=== PATIENT | female | born 1935 | race Caucasian/White ===

== ENCOUNTER 2018-11-29 13:00 | Emergency (ER) | payer MEDICARE ==
[~2018-11-29] VITALS: Ht 160 cm; Wt 58.7 kg
[2018-11-29] MEDS ORDERED: NITROGLYCERIN 0.4 MG SUBL TABLET SL PRN (13:45)
[2018-11-29 13:51] LABS: BASO % 0.6 % (0.0-1.0); EOS # 0.1 10^3/uL (0.0-0.50); EOS % 1.4 % (0.0-3.0); HEMATOCRIT 37.4 % (36.0-47.0); HEMOGLOBIN 12.1 g/dl (12.0-15.5); LYMPH # 1.2 10^3/uL (1.5-4.5); LYMPH % 17.2 % (24.0-44.0); MEAN CORPUSCULAR HEMOGLOBIN 31.4 pg (27.0-33.0); MEAN CORPUSCULAR HGB CONC 32.4 g/dl (32.0-36.5); MEAN CORPUSCULAR VOLUME 97.1 fl (80.0-96.0); MONO # 0.7 10^3/uL (0.0-0.8); MONO % 9.7 % (0.0-5.0); NEUTROPHILS # 5.1 10^3/uL (1.8-7.7); NEUTROPHILS % 70.8 % (36.0-66.0); PLATELET COUNT, AUTOMATED 260 10^3/uL (150-450); RED BLOOD COUNT 3.85 10^6/uL (4.00-5.40); WHITE BLOOD COUNT 7.2 10^3/uL (4.0-10.0)
[2018-11-29] MEDS ORDERED: DORZ2SOL5 OD (13:53)
[2018-11-29] MEDS ORDERED: PILO1OPD OD (13:53)
[2018-11-29] MEDS ORDERED: ATEN100T PO (13:53)
[2018-11-29] MEDS ORDERED: COUM1TAB17 PO (13:53)
[2018-11-29] MEDS ORDERED: ALPH0.156 OD (13:53)
[2018-11-29] MEDS ORDERED: TRAV04OPD OU (13:53)
[2018-11-29 13:59] VITALS: BP 177/110
[2018-11-29 14:19] LABS: BLOOD UREA NITROGEN 15 MG/DL (7-18); CALCIUM LEVEL 8.7 MG/DL (8.8-10.2); CARBON DIOXIDE LEVEL 25 MEQ/L (21-32); CHLORIDE LEVEL 102 MEQ/L (98-107); CPK CREATINE PHOSPHOKINASE 124 U/L (26-192); CREATININE FOR GFR 1.04 MG/DL (0.55-1.30); GLOMERULAR FILTRATION RATE 53.7 (>32); GLUCOSE, FASTING 133 MG/DL (70-100); MB/CK RELATIVE INDEX 2.66 (< OR =4); POTASSIUM SERUM 4.1 MEQ/L (3.5-5.1); SODIUM LEVEL 133 MEQ/L (136-145); TROPONIN I < 0.02 NG/ML (< 0.10)
[2018-11-29] MEDS ORDERED: ISOVUE-370 76% 125ML VIAL (Q9967 PER ML) As Ordered ONE (14:27)
[2018-11-29] MEDS ORDERED: MORPHINE 2 MG/ML 1ML SYRINGE (J2270) IV ONE (16:30)
--- NOTE | 2018-11-29 17:34 | REP ---
CHEST, PORTABLE: AP portable view of the chest is performed and compared to prior study of 08/26/2016. Cardiomegaly is noted. There is calcification of the thoracic aorta. There is mildly prominent soft tissue density in the region of the aortic pulmonic window. I can not exclude adenopathy. Diffuse interstitial fibrosis is seen without a consolidating infiltrate. IMPRESSION: Cardiomegaly. Possible left suprahilar adenopathy. Diffuse interstitial fibrosis. Electronically Signed by Chucho Damon MD 12/04/2018 09:14 A
--- NOTE | 2018-11-29 17:39 | REP ---
CT ANGIOGRAM CHEST: TECHNIQUE: Axial contrast enhanced images from the thoracic inlet to the upper abdomen using 100 mL Isovue 370 intravenous contrast material with multiplanar reformations. There is no CT evidence of pulmonary embolism. There is atherosclerotic calcifications of the thoracic aorta with mild ectasia of the ascending thoracic aorta measuring 4 cm in maximum diameter. I see no axillary adenopathy. There is slight enlargement of a subcarinal lymph node 1.1 cm in short axis. There is cardiomegaly. There is mild left pericardial effusion. No pleural effusion is seen. There is mild parenchymal opacity in the left posterior costophrenic sulcus inferiorly compatible with mild atelectasis or infiltrate. There is diffuse interstitial fibrosis. There are a few scattered tiny calcified granulomas. There is a calcified right infrahilar lymph node. There are degenerative changes of the spine. There are significant compression deformities of the T6-T8 vertebral bodies which are new compared to the prior CT of 08/26/2016. There is a mild stable compression deformity of T3. IMPRESSION: No CT evidence of pulmonary embolism or significant adenopathy. Cardiomegaly. Left pericardial effusion which is relatively small. There is mild atelectasis or infiltrate in the left lower lobe inferiorly and posteriorly. Significant compression deformities of T6 through T8 are new compared to the prior study of 08/26/2016. Electronically Signed by Chucho Damon MD 12/04/2018 09:14 A
--- NOTE | 2018-11-29 17:41 | REP ---
CT ABDOMEN AND PELVIS WITH IV CONTRAST: TECHNIQUE: Axial contrast enhanced images from the lung bases to the pubic symphysis using 100 mL Isovue 370 intravenous contrast material with multiplanar reformations. Liver, spleen, adrenals, pancreas, and kidneys appear unremarkable. There is no hydronephrosis bilaterally. A few small gallstones are seen in the gallbladder and without definite inflammation or edema. There is no definite biliary dilatation. There is no abdominal aortic aneurysm with atherosclerotic calcifications noted. There is no adenopathy. There is no free air or free fluid. I see no bowel wall thickening. I see no pelvic mass. The patient appears to have had a hysterectomy. There are degenerative changes of the spine. IMPRESSION: No acute abnormalities. A few small gallstones in the gallbladder without associated edema or biliary dilatation identified. No free air or free fluid. Electronically Signed by Chucho Damon MD 12/04/2018 09:15 A
[2018-11-29] MEDS ORDERED: ULTR50TA8 PO ×2 (18:16→18:22)
[2018-11-29 18:30] VITALS: BP 167/113
--- NOTE | 2018-11-29 20:50 | ECGEPIP ---
Stationary ECG Study [facility] - ED Test Date: 2018-11-29 Pat Name: CHICO DE LEON Department: Room: - Gender: F Assistant Project Manager: ct : 1935 Requested By: Naren Bell Order Number: [id number] Reading MD: Naren Pfeiffer Measurements Intervals [place] Rate: 109 P: [place]: 0 QRS: 21 QRSD: 89 T: 31 QT: 319 QTc: 430 Interpretive Statements ATRIAL FLUTTER/TACHYCARDIA WITH RAPID VENTRICULAR RESPONSE NONSPECIFIC ST & T-WAVE ABNORMALITY RHYTHM CHANGE COMPARED TO 08/26/16 Electronically Signed On 11-29-2018 20:50:13 EDT by Naren Pfeiffer
--- NOTE | 2018-12-04 12:18 | ED PDOC ---
Post-Departure Follow-Up dr richey faxed formal report of cta chest for fu Alexis Geronimo MD Dec 04, 2018 12:18
--- NOTE | 2018-12-04 12:19 | ED PDOC ---
Post-Departure Follow-Up cxr report faxed to Alexis Pollard MD Dec 04, 2018 12:19
== END 2018-11-29 18:48 | disposition home or self-care (01) ==
LOC: M ED 13:00
DX: M48.54XA Collapsed vertebra, not elsewhere classified, thoracic region, initial encounter for fracture (principal); I10 Essential (primary) hypertension
CPT/HCPCS: 71045; 71275; 74177; 80048; 81001; 82550; 82553; 84484; 85025; 93005; 93041; 94760; 96374; 99285; J2270; Q9967

== ENCOUNTER 2019-02-23 20:03 | Inpatient (IN) | payer MEDICARE ==
[~2019-02-23] VITALS: Ht 162.6 cm; Wt 50.6 kg
[~2019-02-23 20:03] MED LIST: ALPH0.156 OD; ATEN100T PO; COUM1TAB17 PO; DORZ2SOL5 OS; PILO1OPD OD; TRAV04OPD OU; ULTR50TA8 PO
[2019-02-23] MEDS ORDERED: METOPROLOL 5 MG/5 ML VIAL IV STA ×2 (20:44→22:32)
[2019-02-23] MEDS ORDERED: METOCLOPRAMIDE INJ 10MG/2ML VIAL (J2765) IV ONE (20:45)
[2019-02-23] MEDS ORDERED: NS 500 ML IV ONE (20:45)
[2019-02-23 21:04] LABS: BASO # 0.1 10^3/uL (0.0-0.2); BASO % 0.9 % (0.0-1.0); EOS % 0.2 % (0.0-3.0); HEMATOCRIT 39.8 % (36.0-47.0); HEMOGLOBIN 12.8 g/dl (12.0-15.5); LYMPH # 0.6 10^3/uL (1.5-4.5); LYMPH % 9.5 % (24.0-44.0); MEAN CORPUSCULAR HEMOGLOBIN 30.8 pg (27.0-33.0); MEAN CORPUSCULAR HGB CONC 32.2 g/dl (32.0-36.5); MEAN CORPUSCULAR VOLUME 95.7 fl (80.0-96.0); MONO # 0.2 10^3/uL (0.0-0.8); MONO % 3.5 % (0.0-5.0); NEUTROPHILS # 5.6 10^3/uL (1.8-7.7); NEUTROPHILS % 85.6 % (36.0-66.0); PLATELET COUNT, AUTOMATED 222 10^3/uL (150-450); RED BLOOD COUNT 4.16 10^6/uL (4.00-5.40); WHITE BLOOD COUNT 6.6 10^3/uL (4.0-10.0)
[2019-02-23 21:29] LABS: ALBUMIN 3.7 GM/DL (3.2-5.2); ALT/SGPT 37 U/L (12-78); BILIRUBIN,DIRECT 0.2 MG/DL (0.0-0.2); BILIRUBIN,TOTAL 0.5 MG/DL (0.2-1.0); BLOOD UREA NITROGEN 22 MG/DL (7-18); CARBON DIOXIDE LEVEL 21 MEQ/L (21-32); CHLORIDE LEVEL 105 MEQ/L (98-107); CK-MB VALUE MASS 2.3 NG/ML (<3.6); CPK CREATINE PHOSPHOKINASE 93 U/L (26-192); CREATININE FOR GFR 1.04 MG/DL (0.55-1.30); GLOMERULAR FILTRATION RATE 53.7 (>32); GLUCOSE, FASTING 153 MG/DL (70-100); LIPASE 105 U/L (73-393); MB/CK RELATIVE INDEX 2.47 (< OR =4); POTASSIUM SERUM 4.4 MEQ/L (3.5-5.1); SODIUM LEVEL 137 MEQ/L (136-145); TOTAL PROTEIN 7.3 GM/DL (6.4-8.2); TROPONIN I < 0.02 NG/ML (< 0.10)
[2019-02-23] MEDS ORDERED: METOPROLOL TART 25 MG TABLET PO ONE (21:30)
[2019-02-23] MEDS ORDERED: ESOM40CA35 PO (22:33)
[2019-02-23] MEDS ORDERED: BRIM1OPD OS (22:33)
[2019-02-23] MEDS ORDERED: NITROGLYCERIN 2% OINT 1 GM *U/D* PKT TOP ONE (23:45)
[2019-02-23] MEDS ORDERED: FUROSEMIDE 100 MG/10 ML VIAL (J1940) IV ONE (23:45)
[2019-02-24] VITALS (7 sets, daily range): BP systolic 117–168; BP diastolic 76–103
[2019-02-24] MEDS ORDERED: ATENOLOL 50 MG TAB PO ONE (01:30)
[2019-02-24] MEDS: WARFARIN SOD 5 MG TAB PO SCH ×2 (02:41→16:17)
[2019-02-24] MEDS: LATANOPROST 0.005% OPHTH SOLN 2.5 ML OU SCH ×2 (02:42→21:21)
[2019-02-24] MEDS: BRIMONIDINE 0.1% OPHTH SOLN 5 ML OS SCH ×3 (02:42→21:21)
--- NOTE | 2019-02-24 02:48 | HPEPDOC ---
[facility] Medical History & Physical Date of Admission Feb 24, 2019 Date of Service: Feb 24, 2019 History and Physical CHIEF COMPLAINT: SOB HISTORY OF PRESENT ILLNESS: Patient is an 83-year-old female with past medical history of A. fib/flutter on warfarin and hypertension presented to the ER with complaints of nausea today. Also reports having chronic LE edema but has worsened in the past several days with some mild SOB. Patient is not aware of having HF in the past that she knows about and is not on any diuretic at home. She normally wear compression stockings for leg swelling. Otherwise denies any fever, chills, chest pain or any other complaints. PAST MEDICAL HISTORY: Refer to [facility] PAST SURGICAL HISTORY: SOCIAL HISTORY: Denies tobacco, alcohol or illicit drug use. FAMILY HISTORY: None noted ALLERGIES: Please see below. REVIEW OF SYSTEMS: 10 point review of system negative except as stated in HPI HOME MEDICATIONS: Please see below. PHYSICAL EXAMINATION: General: No acute distress, Alert Eyes: Normal sclera, EOMI, CHA HENT: Atraumatic, neck supple, moist mucous membranes Cardiovascular: Normal rate, normal rhythm. No murmurs appreciated. b/l LE swelling nonpitting. Pulmonary: mild bi basilar crackles GI: Soft, nontender, nondistended Skin: Warm and dry. Mild erythema of LLE above ankles. Neuro: CN grossly intact. No focal deficits. Strengths equal b/l. Psych: oriented x 3 LABORATORY DATA: See below. IMAGING: CXR-increased vascular congestion as read by me. f/u official report. MICROBIOLOGY: Please see below. ASSESSMENT AND PLAN: 1. Suspected CHF - LE edema with SOB and congestion on CXR. - Start on IV lasix. - f/u ECHO. - I/o, fluid restriction and daily weights. 2. HTN - Resume home medications. 3. Afib w/ RVR - Likely 2/2 stress from fluid overload. - Has been improving and slowly trending down. - Patient did not take her Atenolol this evening because she has been in ED. - To give a dose tonight and resume night dose tomorrow. - Consider IV BB if needed to further control HR. DVT ppx: HSQ and SCD Code status: DNR Vital Signs Vital Signs Date Time Temp Pulse Resp B/P (MAP) Pulse Ox O2 Delivery O2 Flow Rate FiO2 02/24/19 02:00 116 18 161/97 (118) 91 Room Air 02/24/19 01:10 97.5 Laboratory Data Labs 24H Laboratory Tests 2 02/23/19 20:38: Immature Granulocyte % (Auto) 0.3, White Blood Count 6.6, Red Blood Count 4.16, Hemoglobin 12.8, Hematocrit 39.8, Mean Corpuscular Volume 95.7, Mean Corpuscular Hemoglobin 30.8, Mean Corpuscular Hemoglobin Concent 32.2, Red Cell Distribution Width 14.1, Platelet Count 222, Neutrophils (%) (Auto) 85.6H, Lymphocytes (%) (Auto) 9.5L, Monocytes (%) (Auto) 3.5, Eosinophils (%) (Auto) 0.2, Basophils (%) (Auto) 0.9, Neutrophils # (Auto) 5.6, Lymphocytes # (Auto) 0.6L, Monocytes # (Auto) 0.2, Eosinophils # (Auto) 0.0, Basophils # (Auto) 0.1, Nucleated Red Blood Cells % (auto) 0.0, Anion Gap 11, Glomerular Filtration Rate 53.7, Calcium Level 9.0, Aspartate Amino Transf (AST/SGOT) 38H, Alanine Aminotransferase (ALT/SGPT) 37, Alkaline Phosphatase 83, Total Bilirubin 0.5, Direct Bilirubin 0.2, Total Creatine Kinase 93, Creatine Kinase MB 2.3, Creatine Kinase MB Relative Index 2.47, Troponin I < 0.02, Total Protein 7.3, Albumin 3.7, Albumin/Globulin Ratio 1.03, Lipase 105 CBC/BMP Laboratory Tests 02/23/19 20:38 Red Blood Count 4.16, Mean Corpuscular Volume 95.7, Mean Corpuscular Hemoglobin 30.8, Mean Corpuscular Hemoglobin Concent 32.2, Red Cell Distribution Width 14.1, Neutrophils (%) (Auto) 85.6 H, Lymphocytes (%) (Auto) 9.5 L, Monocytes (%) (Auto) 3.5, Eosinophils (%) (Auto) 0.2, Basophils (%) (Auto) 0.9, Neutrophils # (Auto) 5.6, Lymphocytes # (Auto) 0.6 L, Monocytes # (Auto) 0.2, Eosinophils # (Auto) 0.0, Basophils # (Auto) 0.1 Home Medications Scheduled Atenolol (Atenolol) 100 Mg Tab, 100 MG PO QHS Brimonidine Tartrate (Alphagan P) 0.1% 5ML Drops, 1 DROP OS BID Dorzolamide HCl/Timolol Maleat (Dorzolamide-Timolol Eye Drops) 1 Anita Anita, 1 DROP OS BID Travoprost (Travatan Z) 50 Drop/2.5 Ml Soln, 1 DROP OU QHS Warfarin Sodium (Coumadin) 5 Mg Tab, 5 MG PO QPM AT 1700 Allergies Coded Allergies: No Known Allergies (Unverified , 10/06/09) A-FIB/CHADSVASC A-FIB History Current/History of A-Fib/PAF?: Yes Current PO Anticoag Therapy: Yes ALEXANDRIA HOLLIDAY MD Feb 24, 2019 02:48
[2019-02-24] MEDS ORDERED: METOPROLOL 5 MG/5 ML VIAL IV STA (03:45)
[2019-02-24 05:09] LABS: HEMATOCRIT 39.5 % (36.0-47.0); HEMOGLOBIN 12.8 g/dl (12.0-15.5); MEAN CORPUSCULAR HEMOGLOBIN 30.3 pg (27.0-33.0); MEAN CORPUSCULAR HGB CONC 32.4 g/dl (32.0-36.5); MEAN CORPUSCULAR VOLUME 93.4 fl (80.0-96.0); PLATELET COUNT, AUTOMATED 225 10^3/uL (150-450); RED BLOOD COUNT 4.23 10^6/uL (4.00-5.40); WHITE BLOOD COUNT 6.9 10^3/uL (4.0-10.0)
[2019-02-24 05:27] LABS: INR 1.81; PROTHROMBIN TIME 21.3 SECONDS (12.1-14.4)
[2019-02-24 05:40] LABS: CALCIUM LEVEL 8.7 MG/DL (8.8-10.2); CREATININE FOR GFR 1.08 MG/DL (0.55-1.30); GLOMERULAR FILTRATION RATE 51.5 (>32); POTASSIUM SERUM 3.5 MEQ/L (3.5-5.1)
[2019-02-24] MEDS: HEPARIN SOD (PORCINE) 5000 UNITS/ML VIAL SC SCH ×3 (06:23→22:32)
--- NOTE | 2019-02-24 07:06 | ECGEPIP ---
[facility] - ED Test Date: 2019-02-23 Pat Name: CHICO DE LEON Department: Room: [place] [address] Gender: Female Supervisor Frame Assembly: elsa : 1935 Requested By: HERMINIO BALL Order Number: [id number] Reading MD: Naren Pfeiffer Measurements Intervals [place] Rate: 122 P: [place]: -1 QRS: 34 QRSD: 93 T: QT: 315 QTc: 450 Interpretive Statements ATRIAL FLUTTER WITH RAPID VENTRICULAR RESPONSE NONSPECIFIC ST & T-WAVE ABNORMALITY SIMILAR TO 11/19/18 Electronically Signed on 02-24-2019 7:06:44 EDT by Naren Pfeiffer
[2019-02-24] MEDS ORDERED: SLF 3 ML SYR IV PRN (07:45)
[2019-02-24] MEDS: FUROSEMIDE 40 MG/4 ML VIAL (J1940) IV SCH ×3 (08:39→23:45)
--- NOTE | 2019-02-24 08:50 | REP ---
PORTABLE CHEST: AP portable view of the chest is performed and compared to prior study of 11/29/2018. Cardiomegaly is again noted. There is vascular congestion with diffuse interstitial edema. There also appears to be mild bibasilar alveolar edema. There are small effusions. There is calcification of the thoracic aorta. Mediastinal silhouette is unremarkable. IMPRESSION: Cardiomegaly with vascular congestion and diffuse interstitial edema. Mild bibasilar alveolar edema and small effusions. Electronically Signed by Chucho Damon MD 02/25/2019 10:35 A
[2019-02-24] MEDS ORDERED: METOPROLOL TART 25 MG TABLET PO SCH (14:15)
--- NOTE | 2019-02-24 14:16 | IPNPDOC ---
Text Note Date of Service The patient was seen on 02/24/19. NOTE S: patient seen with clark. HR consistently 110 but no palpitations, no CP, states SOB improved from admission. good urine output. She is being seen for CHF/Afib. States she has had afib for 10-15 years O: Vitals as below General: pleasant, NAD AAOx3 Heart - irreg/irreg 110-115 LCTA no W/R/R Ext: 2+ pitting edema A/P: Afib - chronic poor control; change atenolol 100mg q HS to metoprolol tartrate 50bid (with conversion rate of atenolol to metoprolol [1:2] anticipate she may need higher dose). cardiac echo this AM pending. troponin negative. Check TSH. daily INR and monitor warfarin. High decision making to monitor warfarin due to potential drug toxicity acute CHF - unknown type; await echo. continue with diuresis, metoprolol, consider NATHAN-I if EF less than 40%, consider spironolactone Patient is requesting to see Dr Ledezma while in hospital - consult placed. VS,Fishbone, I+O VS, Fishbone, I+O Laboratory Tests 02/23/19 20:38 Red Blood Count 4.16, Mean Corpuscular Volume 95.7, Mean Corpuscular Hemoglobin 30.8, Mean Corpuscular Hemoglobin Concent 32.2, Red Cell Distribution Width 14.1, Neutrophils (%) (Auto) 85.6 H, Lymphocytes (%) (Auto) 9.5 L, Monocytes (%) (Auto) 3.5, Eosinophils (%) (Auto) 0.2, Basophils (%) (Auto) 0.9, Neutrophils # (Auto) 5.6, Lymphocytes # (Auto) 0.6 L, Monocytes # (Auto) 0.2, Eosinophils # (Auto) 0.0, Basophils # (Auto) 0.1 02/24/19 04:43 Red Blood Count 4.23, Mean Corpuscular Volume 93.4, Mean Corpuscular Hemoglobin 30.3, Mean Corpuscular Hemoglobin Concent 32.4, Red Cell Distribution Width 14.1, Calcium Level 8.7 L Vital Signs Date Time Temp Pulse Resp B/P (MAP) Pulse Ox O2 Delivery O2 Flow Rate FiO2 02/24/19 12:00 97.8 110 20 117/96 (103) 97 02/24/19 02:00 Room Air I&O- Last 24 Hours up to 6 AM 02/24/19 06:00 Intake Total 740 ml Output Total 2925 ml Balance -2185 ml SIMRAN MARTI DO Feb 24, 2019 14:16
[2019-02-24] MEDS: SLF 3 ML SYR IV SCH ×2 (14:24→21:22)
[2019-02-24] MEDS: METOPROLOL TART 50 MG TAB PO SCH ×2 (14:24→14:25)
[2019-02-24] MEDS ORDERED: DIGOXIN INJ 0.5 MG/2 ML AMP (J1160) IV ONE (17:00)
[2019-02-24 17:31] LABS: FREE T4 1.24 NG/DL (0.76-1.46); THYROID STIMULATING HORMONE 3.45 uIU/ML (0.358-3.740); THYROXINE (T4) 9.4 UG/DL (4.5-12.0)
--- NOTE | 2019-02-24 17:32 | CR ---
DATE OF CONSULTATION: 02/24/2019 REASON FOR CONSULTATION: Diastolic heart failure, acute on chronic, chronic atrial fibrillation. HISTORY OF THE PRESENT ILLNESS: Morenita Barboza is a pleasant 83-year-old woman with chronic atypical atrial flutter and systemic hypertension. Yesterday she developed nausea and vomiting and was feeling generally unwell and decided to proceed to the emergency room for further evaluation. She reports paroxysmal nocturnal dyspnea. She reports chronic bilateral leg edema in both legs, which has not changed. She is no longer bothered by palpitations, but in the past, she has had palpitations. No chest pain or chest discomfort with or without exertion. No presyncope or syncope. No embolic events. No intermittent claudication. She does not have any exertional dyspnea with less than ordinary activities of daily living. She is quite sedentary. She was discovered to have heart failure and to have atypical atrial flutter with rapid ventricular response. She has been admitted to the hospital for further management. She claims 100% compliance with her medications. An echocardiogram Doppler has been performed earlier today and will be reported under separate cover. It showed normal left ventricular (LV) systolic function, normal right ventricle systolic function, moderate left atrial dilatation, moderate right atrial dilatation, and a moderate size pericardial effusion without diastolic chamber collapse. Mitral annular calcification and aortic valve sclerosis with mild aortic regurgitation were present. ADVERSE DRUG REACTIONS: No known adverse drug reactions. MEDICATIONS PRIOR TO ADMISSION: Atenolol 100 mg nightly, Alphagan P one drop left eye (OS) twice a day, dorzolamide/timolol ophthalmic solution one drop left eye twice a day, Travatan Z one drop both eyes (OU) nightly, Coumadin 5 mg every evening. PATIENT'S CURRENT MEDICATIONS IN HOSPITAL ARE FOLLOWS: Alphagan P one drop twice a day left eye, furosemide 40 mg IV every 8 hours, latanoprost ophthalmic solution one drop both eyes nightly, metoprolol tartrate 60 mg by mouth twice a day, warfarin 5 mg daily. OTHER PAST MEDICAL AND SURGICAL HISTORY: Chronic atypical atrial flutter, systemic hypertension, chronic bilateral leg edema, hypercholesterolemia, gastroesophageal reflux disease (GERD), status post hysterectomy, prior broken back, prior hysterectomy, anemia. FAMILY HISTORY: Mother had systemic hypertension and diabetes. One sister with diabetes. SOCIAL HISTORY: Resident of [place], [place]. . No alcohol. Nonsmoker. REVIEW OF SYSTEMS: Ten-point review of systems were negative other than features described in history of the present illness above. No anxiety, panic attacks, or depression. PHYSICAL EXAMINATION: Pleasant elderly woman who appears to be normal body weight. Height 64 inches, weight 53.2 kg, body mass index (BMI) 20.1. Temperature 97.8, pulse 115 (irregularly irregular), respiratory rate 20, blood pressure 130/68, oxygen (O2) saturation 97% on room air. No conjunctival pallor, scleral icterus or xanthomas. Some missing teeth and some dental fillings. Teeth were stained. Oral mucosa was moist and without pallor or cyanosis. Jugular venous pulsations were at 12 cm. Trachea midline. No palpable thyroid. No clubbing, nail bed cyanosis, or splinter hemorrhages. No skin lesions, skin pallor, or icterus. Oriented to person, place and time. Mood and affect normal. Kyphosis present. Gait was not tested (patient on bed rest). Gross motor strength and tone normal. No abnormal muscle atrophy, fasciculations, or tremors. Respiratory expansion and effort were good. No crackles or wheezes. No palpable apex beat. No left parasternal lifts, heaves, thrills, or palpable heart sounds. First and second heart sounds are variable intensity. The second heart sound was loud. No S3. No pericardial friction rub. No murmurs appreciated. Carotids were normal in volume and contour and without bruits. No palpable abdominal aorta. No abdominal bruits. Femoral pulses normal. Pedal pulses normal. 1 mm bilateral pitting edema in both legs. Abdomen was obese, soft, nontender with normal bowel sounds. No hepatosplenomegaly or other organomegaly. Liver span 10 cm in the right midclavicular line. Stool for occult blood not presently indicated. INVESTIGATIONS: Laboratory work 02/23/2019 was reviewed: WBC 6.6, hemoglobin 12.8, hematocrit 39.8, platelets 222. Sodium 137, potassium 4.4, chloride 105, CO2 21, BUN 22, creatinine 1.04, estimated GFR 53.7, glucose 153, troponin I less than 0.02, CPK 93, CPK-MB 2.3, total protein 7.3, albumin 3.7. Laboratory work 02/24/2019 was reviewed: Sodium 139, potassium 3.5, chloride 102, CO2 26, BUN 21, creatinine 1.08, estimated GFR 51.5, glucose 121, NT-Pro-BNP 4370. PT/INR 1.81. Electrocardiogram 02/23/2019 shows atrial flutter (most likely atypical atrial flutter), rapid ventricular response, heart rate 122 beats per minute, nonspecific ST-T abnormalities. I have independently visualized the patient's portable upright AP chest x-ray acquired 02/23/2019 at 11:19 p.m. Presence of cardiomegaly despite the portable technique. Enlargement of the main pulmonary artery. Calcification of the aortic arch. Left atrial enlargement, pulmonary vascular redistribution. Small bilateral pleural effusions. Interstitial pulmonary edema. Some patchy alveolar edema as well. ASSESSMENT AND RECOMMENDATIONS: 1. Atypical atrial flutter with rapid ventricular response. To improve heart rate control, I will add digoxin. Currently she is underdosed on metoprolol tartrate, and I see no good reason to be switching her from atenolol to metoprolol tartrate. I will switch her back to atenolol but at a higher dose than her home dose. Continue warfarin. Echocardiogram Doppler report under separate cover. 2. Systemic hypertension. Blood pressure control has been variable. Will continue to follow. As noted above, she will be switched back to atenolol and taken off metoprolol tartrate. Continue intravenous (IV) furosemide. 3. Moderate size pericardial effusion. No diastolic chamber collapse. I do not think that she needs to have drainage of the pericardial effusion. I suspect the pericardial effusion will progressively lessen with treatment of heart failure. 4. Diastolic heart failure (acute on chronic). Echocardiogram Doppler report under separate cover. Agree with IV furosemide. I believe her heart failure will improve with better heart rate control. 5. Abnormal ECG. ECG as described above.
--- NOTE | 2019-02-24 17:42 | ECHO ---
DATE OF PROCEDURE: 02/24/2019 REFERRING PHYSICIAN: Dr. Bipin Espinoza INDICATION: Heart failure, unspecified. HEIGHT: 163 cm WEIGHT: 68 kg 2D MEASUREMENTS: Ventricular septum: 0.67 cm Posterior wall: 0.98 cm Left ventricle diastole: 4.8 cm Left atrium: 3.5 cm Left atrial volume index: 39 Proximal ascending aorta: 3.4 cm Inferior vena cava: 1.8 cm (approximately 50% respiratory variation). CVP estimated to be 10 mmHg. DOPPLER MEASUREMENTS: Mild aortic regurgitation. No aortic stenosis. Aortic valve velocity: 139 cm/s LVOT velocity: 64.7 cm/s Mild-moderate mitral regurgitation. Moderate tricuspid regurgitation. Mild pulmonic regurgitation. DESCRIPTION: Rhythm appeared to be atypical atrial flutter with rapid ventricular response. Image quality was fair. This was a 2D, M-mode, color flow Doppler and pulse wave Doppler examination and included mitral annular tissue Doppler. CONCLUSIONS: 1. Normal left ventricle internal dimensions and wall thickness. Normal regional left ventricular (LV) wall motion and wall thickening. Normal LV systolic function with left ventricular ejection fraction (LVEF) 60% by visual estimate. Unable to determine LV diastolic function in the setting of atrial flutter. 2. Moderate left atrial dilatation by left atrial volume index. 3. Moderate size pericardial effusion, which measured 0.8 cm over the posterior wall of the left ventricle. No diastolic chamber collapse. No significant respiratory variation or intracardiac velocities. 4. Moderate aortic valve sclerosis of a 3-cusp aortic valve. Mild aortic regurgitation. No aortic stenosis. 5. Mild mitral annular calcification. Mild-moderate mitral regurgitation. 6. Normal right ventricle size and systolic function. 7. Moderate right atrial dilatation.
[2019-02-24] MEDS ORDERED: ATENOLOL 50 MG TAB PO SCH (21:00)
[2019-02-24] MEDS: ATENOLOL 25 MG TAB PO SCH (21:21)
[2019-02-24] MEDS ORDERED: DIGOXIN 0.25 MG TAB PO ONE (21:45)
[2019-02-25] VITALS (8 sets, daily range): BP systolic 94–138; BP diastolic 66–84
[2019-02-25 06:01] LABS: INR 1.87; PROTHROMBIN TIME 21.9 SECONDS (12.1-14.4)
[2019-02-25 06:14] LABS: CHOLESTEROL RISK RATIO 2.518 (<5); CREATININE FOR GFR 1.15 MG/DL (0.55-1.30); GLOMERULAR FILTRATION RATE 47.9 (>32); THYROID STIMULATING HORMONE 4.11 uIU/ML (0.358-3.740)
[2019-02-25] MEDS: SLF 3 ML SYR IV SCH ×3 (06:34→21:37)
[2019-02-25] MEDS: HEPARIN SOD (PORCINE) 5000 UNITS/ML VIAL SC SCH ×3 (06:35→20:46)
[2019-02-25] MEDS: FUROSEMIDE 40 MG/4 ML VIAL (J1940) IV SCH ×3 (08:13→17:34)
[2019-02-25] MEDS: BRIMONIDINE 0.1% OPHTH SOLN 5 ML OS SCH ×2 (08:15→20:48)
[2019-02-25] MEDS: DIGOXIN 0.125 MG TAB PO SCH (08:15)
[2019-02-25] MEDS: ATENOLOL 25 MG TAB PO SCH ×2 (08:15→20:46)
[2019-02-25] MEDS ORDERED: [UNRECOGNIZED DRUG - OTHER] OU SCH (09:00)
[2019-02-25 10:56] LABS: HEMATOCRIT 43.6 % (36.0-47.0); HEMOGLOBIN 14.2 g/dl (12.0-15.5); MEAN CORPUSCULAR HEMOGLOBIN 30.3 pg (27.0-33.0); MEAN CORPUSCULAR HGB CONC 32.6 g/dl (32.0-36.5); MEAN CORPUSCULAR VOLUME 93.2 fl (80.0-96.0); PLATELET COUNT, AUTOMATED 261 10^3/uL (150-450); RED BLOOD COUNT 4.68 10^6/uL (4.00-5.40); WHITE BLOOD COUNT 7.2 10^3/uL (4.0-10.0)
[2019-02-25 11:36] LABS: ALBUMIN 3.5 GM/DL (3.2-5.2); BILIRUBIN,TOTAL 0.7 MG/DL (0.2-1.0); CALCIUM LEVEL 8.7 MG/DL (8.8-10.2); CREATININE FOR GFR 1.57 MG/DL (0.55-1.30); GLOMERULAR FILTRATION RATE 33.4 (>32); MAGNESIUM LEVEL 1.9 MG/DL (1.8-2.4); POTASSIUM SERUM 3.3 MEQ/L (3.5-5.1); TOTAL PROTEIN 7.6 GM/DL (6.4-8.2)
--- NOTE | 2019-02-25 12:43 | IPNPDOC ---
Subjective Date Seen The patient was seen on 02/25/19. Subjective Chief Complaint/HPI Patient is comfortable in no apparent distress but feels much better General: Denies: ROS Unobtainable, Chills, Night Sweats, Fatigue, Malaise, Normal Appetite, Other Symptoms Constitutional: Denies: Chills, Fever, Malaise, Night Sweats, Weakness, Fatigue, Weight Loss, Lethargy, Other Eyes: Denies: Pain, Vision change, Conjunctivae inflammation, Eyelid inflammation, Redness, Other ENT: Denies: Head Aches, Ear Pain, Dysphagia, Sinus Congestion, Post Nasal Drip, Sore Throat, Epistaxis, Other Symptoms Skin: Denies: Rash, Lesions, Jaundice, Bruising, Itching, Dry, Breakdown, Nail Changes, Other Pulmonary: Denies: Dyspnea, Cough, Pleuritic Chest Pain, Other Symptoms Cardiovascular: Denies: Chest Pain, Palpitations, Orthopnea, Paroxysmal Noc. Dyspnea, Edema, Lt Headedness, Other Symptoms Gastrointestinal: Denies: Nausea, Vomiting, Abdominal Pain, Diarrhea, Consti pation, Melena, Hematochezia, Other Symptoms Genitourinary: Denies: Dysuria, Frequency, Incontinence, Hematuria, Retention, Other Symptoms Hematologic: Denies: Bruising, Bleeding Excessively, Petecchia, Purpura, Enlarged Lymph Nodes, Other Hematologic Endocrine: Denies: Polydipsia, Polyphagia, Polyuria, Heat Intolerance, Cold Intolerance, Other Endocrine Sx Musculoskeletal: Denies: Neck Pain, Back Pain, Shoulder Pain, Arm Pain, Hand Pain, Leg Pain, Foot Pain, Joint Pain, Muscle Pain, Spasms, Other Symptoms Neurological: Denies: Weakness, Numbness, Incoordination, Change in speech, Co nfusion, Seizures, Other Symptoms Psych: Denies: Mood Normal, Anxiety, Depression, Memory Issues, Thoughts of Self Harm, Anger, Thoughts of Harming Other, Other Psych Objective Physical Examination General Exam: Positive: Alert, No Acute Distress Eye Exam: Positive: PERRLA, Conjunctiva & lids normal ENT Exam: Positive: Atraumatic, Mucous membr. moist/pink, Pharynx Normal Neck Exam: Positive: Supple Chest Exam: Positive: Clear to auscultation, Normal air movement Heart Exam: Positive: Rate Normal, Normal S1, Normal S2 Abdomen Exam: Positive: Normal bowel sounds, Soft Extremity Exam: Positive: Normal pulses Skin Exam: Positive: Nl turgor and temperature Neuro Exam: Positive: Normal Gait, Cranial Nerves 3-12 NL Psych Exam: Positive: Mental status NL, Mood NL Assessment /Plan Problems (1) Atrial flutter with rapid ventricular response Status: Acute (2) Congestive heart failure Status: Acute (3) Compression fracture of thoracic spine, non-traumatic Status: Acute Plan/VTE VTE Prophylaxis Ordered?: Yes Plan #1. Atrial flutter with RVR: Digoxin was added by cardiology and also beta blockers changed to atenolol from metoprolol tartrate Continue anticoagulation with Coumadin. Follow INR routinely Echo report: 1. Normal left ventricle internal dimensions and wall thickness. Normal regional left ventricular (LV) wall motion and wall thickening. Normal LV systolic function with left ventricular ejection fraction (LVEF) 60% by visual estimate. Unable to determine LV diastolic function in the setting of atrial flutter. 2. Moderate left atrial dilatation by left atrial volume index. 3. Moderate size pericardial effusion, which measured 0.8 cm over the posterior wall of the left ventricle. No diastolic chamber collapse. No significant respiratory variation or intracardiac velocities. 4. Moderate aortic valve sclerosis of a 3-cusp aortic valve. Mild aortic regurgitation. No aortic stenosis. 5. Mild mitral annular calcification. Mild-moderate mitral regurgitation. 6. Normal right ventricle size and systolic function. 7. Moderate right atrial dilatation. #2. Hypertension Patient has been switched back to atenolol as to the metoprolol. He is also receiving IV Lasix and IV potassium Continue monitoring patient's vital signs #3. Acute on chronic diastolic heart failure Continue IV Lasix and IV potassium as per orders Monitor I&O's Further, as per cardiology #4 Moderate size pericardial effusion. No diastolic chamber collapse. Continue IV diuresis drainage of pericardial effusion was not considered by cardiology VS, I&O, 24H, [facility] Vital Signs/I&O Vital Signs Date Time Temp Pulse Resp B/P (MAP) Pulse Ox O2 Delivery O2 Flow Rate FiO2 02/25/19 12:00 97.5 69 18 105/69 (81) 98 02/24/19 02:00 Room Air I&O- Last 24 Hours up to 6 AM 02/25/19 06:00 Intake Total 1140 ml Output Total 450 ml Balance 690 ml Laboratory Data 24H LABS Laboratory Tests 2 02/25/19 05:31: Prothrombin Time 21.9H, Prothromb Time International Ratio 1.87, Anion Gap 8, Glomerular Filtration Rate 47.9, Calcium Level 9.0, Triglycerides Level 67, LDL Cholesterol 110H, Total Cholesterol 204H, Non-HDL Cholesterol (LDL + VLDL) 123, Total HDL Cholesterol 81, Cholesterol/HDL Ratio 2.518, Thyroid Stimulating Hormone (TSH) 4.110H 02/25/19 10:33: Anion Gap 12, Glomerular Filtration Rate 33.4, Calcium Level 8.7L, Nucleated Red Blood Cells % (auto) 0.0, Blood Urea Nitrogen 32H, Creatinine 1.57H, Sodium Level 137, Potassium Level 3.3L, Chloride Level 97L, Carbon Dioxide Level 28, Aspartate Amino Transf (AST/SGOT) 45H, Alanine Aminotransferase (ALT/SGPT) 41, Alkaline Phosphatase 88, Total Bilirubin 0.7, Total Protein 7.6, Albumin 3.5, Magnesium Level 1.9, Albumin/Globulin Ratio 0.85L, Digoxin Level 2.0 CBC/BMP Laboratory Tests 02/25/19 05:31 02/25/19 10:33 Red Blood Count 4.68, Mean Corpuscular Volume 93.2, Mean Corpuscular Hemoglobin 30.3, Mean Corpuscular Hemoglobin Concent 32.6, Red Cell Distribution Width 14.3, Calcium Level 8.7 L, Aspartate Amino Transf (AST/SGOT) 45 H, Alanine Aminotransferase (ALT/SGPT) 41, Alkaline Phosphatase 88, Total Bilirubin 0.7, Total Protein 7.6, Albumin 3.5 MESERET GOMEZ MD Feb 25, 2019 12:43
[2019-02-25] MEDS: WARFARIN SOD 5 MG TAB PO SCH (17:12)
[2019-02-25] MEDS ORDERED: ONDANSETRON 4MG/2ML VIAL (J2405) IV PRN (18:30)
[2019-02-25] MEDS ORDERED: POTASSIUM CHLORIDE 10 MEQ SR TABLET PO ONE (18:30)
[2019-02-25] MEDS: [UNRECOGNIZED DRUG - OTHER] OS SCH (20:47)
[2019-02-25] MEDS: LATANOPROST 0.005% OPHTH SOLN 2.5 ML OU SCH (20:48)
[2019-02-26 04:00] VITALS: BP 132/76
[2019-02-26] MEDS: SLF 3 ML SYR IV SCH (05:21)
[2019-02-26] MEDS: HEPARIN SOD (PORCINE) 5000 UNITS/ML VIAL SC SCH (05:22)
[2019-02-26 05:35] LABS: BASO # 0.1 10^3/uL (0.0-0.2); BASO % 0.9 % (0.0-1.0); EOS # 0.2 10^3/uL (0.0-0.50); EOS % 3.5 % (0.0-3.0); HEMATOCRIT 40.9 % (36.0-47.0); HEMOGLOBIN 13.3 g/dl (12.0-15.5); LYMPH # 1.5 10^3/uL (1.5-4.5); LYMPH % 23.2 % (24.0-44.0); MEAN CORPUSCULAR HEMOGLOBIN 30.6 pg (27.0-33.0); MEAN CORPUSCULAR HGB CONC 32.5 g/dl (32.0-36.5); MONO % 15.2 % (0.0-5.0); NEUTROPHILS # 3.6 10^3/uL (1.8-7.7); NEUTROPHILS % 56.7 % (36.0-66.0); PLATELET COUNT, AUTOMATED 218 10^3/uL (150-450); RED BLOOD COUNT 4.35 10^6/uL (4.00-5.40); WHITE BLOOD COUNT 6.4 10^3/uL (4.0-10.0)
[2019-02-26 05:40] LABS: INR 2.49; PROTHROMBIN TIME 27.4 SECONDS (12.1-14.4)
[2019-02-26 05:56] LABS: CALCIUM LEVEL 8.8 MG/DL (8.8-10.2); CREATININE FOR GFR 1.61 MG/DL (0.55-1.30); GLOMERULAR FILTRATION RATE 32.5 (>32); POTASSIUM SERUM 3.6 MEQ/L (3.5-5.1)
[2019-02-26 08:00] VITALS: BP 105/59
[2019-02-26 08:55] VITALS: BP 105/59
[2019-02-26] MEDS: DIGOXIN 0.125 MG TAB PO SCH (08:56)
[2019-02-26] MEDS: BRIMONIDINE 0.1% OPHTH SOLN 5 ML OS SCH (08:56)
[2019-02-26] MEDS: [UNRECOGNIZED DRUG - OTHER] OS SCH (08:57)
[2019-02-26] MEDS ORDERED: ATENOLOL 50 MG TAB PO SCH (09:00)
[2019-02-26] MEDS ORDERED: DIGO0.12 PO (11:37)
[2019-02-26] MEDS ORDERED: ATEN50TA2 PO (11:37)
[2019-02-26 12:00] VITALS: BP 103/67
--- NOTE | 2019-02-26 13:32 | DS.PDOC ---
Discharge Summary General Date of Admission Feb 24, 2019 at 01:25 Date of Discharge 02/26/2019 Attending Physician: MESERET GOMEZ MD Discharge Summary PROCEDURES PERFORMED DURING STAY: [None]. ADMITTING DIAGNOSES: 1. [A. fib with the RVR, CHF]. DISCHARGE DIAGNOSES: 1. [A. fib with RVR, CHF]. COMPLICATIONS/CHIEF COMPLAINT: Afib With Rvr, Chf. HISTORY OF PRESENT ILLNESS: [Patient is an 83-year-old female with past medical history of A. fib/flutter on warfarin and hypertension presented to the ER with complaints of nausea today. Also reports having chronic LE edema but has wo rsened in the past several days with some mild SOB. Patient is not aware of having HF in the past that she knows about and is not on any diuretic at home. She normally wear compression stockings for leg swelling. Otherwise denies any fever, chills, chest pain or any other complaints.]. HOSPITAL COURSE: [#1. Atrial flutter with RVR: Digoxin was added by cardiology and also beta blockers changed to atenolol from metoprolol tartrate Continue anticoagulation with Coumadin. Follow INR routinely Echo report: 1. Normal left ventricle internal dimensions and wall thickness. Normal regional left ventricular (LV) wall motion and wall thickening. Normal LV systolic function with left ventricular ejection fraction (LVEF) 60% by visual estimate. Unable to determine LV diastolic function in the setting of atrial flutter. 2. Moderate left atrial dilatation by left atrial volume index. 3. Moderate size pericardial effusion, which measured 0.8 cm over the posterior wall of the left ventricle. No diastolic chamber collapse. No significant respiratory variation or intracardiac velocities. 4. Moderate aortic valve sclerosis of a 3-cusp aortic valve. Mild aortic regurgitation. No aortic stenosis. 5. Mild mitral annular calcification. Mild-moderate mitral regurgitation. 6. Normal right ventricle size and systolic function. 7. Moderate right atrial dilatation. #2. Hypertension Patient has been switched back to atenolol as to the metoprolol. He is also receiving IV Lasix and IV potassium Continue monitoring patient's vital signs #3. Acute on chronic diastolic heart failure Continue IV Lasix and IV potassium as per orders Monitor I&O's Further, as per cardiology #4 Moderate size pericardial effusion. No diastolic chamber collapse. Continue IV diuresis drainage of pericardial effusion was not considered by cardiolog]. DISCHARGE MEDICATIONS: Please see below. ALLERGIES: Please see below. PHYSICAL EXAMINATION ON DISCHARGE: VITAL SIGNS: Please see below. GENERAL: [Normal] HEENT: [PERRLA] NECK: [Supple] CARDIOVASCULAR EXAMINATION: [S1, S2, irregular] RESPIRATORY EXAMINATION: [Clear to A&P with crackles bilateral bases] ABDOMINAL EXAMINATION: [Benign] EXTREMITIES: [1+ bipedal edema] SKIN: [Normal] NEUROLOGICAL EXAMINATION: [Normal] PSYCHIATRIC EXAMINATION: LABORATORY DATA: Please see below. IMAGING: [As per EMR] PROGNOSIS: ACTIVITY: [As tolerated]. DIET: [As tolerated] DISCHARGE PLAN: [Follow with cardiology as an outpatient] DISPOSITION: Follow with PCP in one week DISCHARGE INSTRUCTIONS: 1. [As above]. ITEMS TO FOLLOWUP ON ON OUTPATIENT: 1. [As above. DISCHARGE CONDITION: [Stable]. TIME SPENT ON DISCHARGE: 38 minutes. Vital Signs/I&Os Vital Signs Date Time Temp Pulse Resp B/P (MAP) Pulse Ox O2 Delivery O2 Flow Rate FiO2 02/26/19 12:00 97.1 94 16 103/67 (79) 97 02/24/19 02:00 Room Air I&O- Last 24 Hours up to 6 AM 02/26/19 06:00 Intake Total 690 ml Output Total 200 ml Balance 490 ml Laboratory Data Labs 24H Laboratory Tests 2 02/26/19 05:11: Immature Granulocyte % (Auto) 0.5, White Blood Count 6.4, Red Blood Count 4.35, Hemoglobin 13.3, Hematocrit 40.9, Mean Corpuscular Volume 94.0, Mean Corpuscular Hemoglobin 30.6, Mean Corpuscular Hemoglobin Concent 32.5, Red Cell Distribution Width 13.9, Platelet Count 218, Neutrophils (%) (Auto) 56.7, Lymphocytes (%) (Auto) 23.2L, Monocytes (%) (Auto) 15.2H, Eosinophils (%) (Auto) 3.5H, Basophils (%) (Auto) 0.9, Neutrophils # (Auto) 3.6, Lymphocytes # (Auto) 1.5, Monocytes # (Auto) 1.0H, Eosinophils # (Auto) 0.2, Basophils # (Auto) 0.1, Nucleated Red Blood Cells % (auto) 0.0, Prothrombin Time 27.4H, Prothromb Time International Ratio 2.49, Anion Gap 7L, Glomerular Filtration Rate 32.5, Blood Urea Nitrogen 34H, Creatinine 1.61H, Sodium Level 136, Potassium Level 3.6, Chloride Level 98, Carbon Dioxide Level 31, Calcium Level 8.8 CBC/BMP Laboratory Tests 02/26/19 05:11 Red Blood Count 4.35, Mean Corpuscular Volume 94.0, Mean Corpuscular Hemoglobin 30.6, Mean Corpuscular Hemoglobin Concent 32.5, Red Cell Distribution Width 13.9, Neutrophils (%) (Auto) 56.7, Lymphocytes (%) (Auto) 23.2 L, Monocytes (%) (Auto) 15.2 H, Eosinophils (%) (Auto) 3.5 H, Basophils (%) (Auto) 0.9, Neutroph ils # (Auto) 3.6, Lymphocytes # (Auto) 1.5, Monocytes # (Auto) 1.0 H, Eosinophils # (Auto) 0.2, Basophils # (Auto) 0.1, Calcium Level 8.8 Discharge Medications Scheduled Atenolol (Atenolol) 50 Mg Tablet, 100 MG PO BID Brimonidine Tartrate (Alphagan P) 0.1% 5ML Drops, 1 DROP OS BID, (Reported) Digoxin (Digoxin) 125 Mcg Tablet, 0.125 MG PO DAILY Dorzolamide HCl/Timolol Maleat (Dorzolamide-Timolol Eye Drops) 1 Anita Anita, 1 DROP OS BID, (Reported) Travoprost (Travatan Z) 50 Drop/2.5 Ml Soln, 1 DROP OU QHS, (Reported) Warfarin Sodium (Coumadin) 5 Mg Tab, 5 MG PO QPM, (Reported) AT 1700 Allergies Coded Allergies: No Known Allergies (Unverified , 10/06/09) MESERET GOMEZ MD Feb 26, 2019 13:32
== END 2019-02-26 14:59 | disposition home or self-care (01) | DRG 308 ==
LOC: M ED 20:03 → M ED INP 02-24 01:25 → M PCU 02-24 02:18
PROVIDERS: ADMIT Student in an Organized Health Care Education/Training Program; ATTEND Internal Medicine
DX: I48.2 Chronic atrial fibrillation (principal); I50.33 Acute on chronic diastolic (congestive) heart failure; M84.48XA Pathological fracture, other site, initial encounter for fracture; I31.3 Pericardial effusion (noninflammatory); I11.0 Hypertensive heart disease with heart failure; I48.92 Unspecified atrial flutter; Z79.01 Long term (current) use of anticoagulants; Z79.899 Other long term (current) drug therapy; E78.00 Pure hypercholesterolemia, unspecified; K21.9 Gastro-esophageal reflux disease without esophagitis

== ENCOUNTER 2019-03-06 10:53 | Outpatient (RCR) | payer MEDICARE ==
[~2019-03-06 10:53] MED LIST changes: +ATEN50TA2 PO; +BRIM1OPD OS; +DIGO0.12 PO; +ESOM40CA35 PO
[2019-03-16] MEDS ORDERED: MECL-68 PO (19:08)
== END 2019-03-16 ==
LOC: M PT 10:53
PROVIDERS: ATTEND Family Medicine
DX: I48.91 Unspecified atrial fibrillation (principal); I50.9 Heart failure, unspecified

== ENCOUNTER → 2019-03-14 | Outpatient (REF) | payer MEDICARE ==
[~2019-03-14] MED LIST changes: +MECL-68 PO
[2019-03-14 18:21] LABS: PROTHROMBIN TIME 104.6 SECONDS (11.8-14.0)
[2019-03-14 18:40] LABS: INR 13.67
== END ==
LOC: M LAB REF 16:08
PROVIDERS: ATTEND Family Medicine
DX: Z51.81 Encounter for therapeutic drug level monitoring (principal); Z79.01 Long term (current) use of anticoagulants; I48.2 Chronic atrial fibrillation

== ENCOUNTER 2019-03-16 15:17 | Emergency (ER) | payer MEDICARE ==
[~2019-03-16] VITALS: Ht 160 cm; Wt 52.3 kg
[~2019-03-16 15:17] MED LIST changes: -MECL-68 PO
[2019-03-16 15:47] LABS: BASO # 0.1 10^3/uL (0.0-0.2); BASO % 0.9 % (0.0-1.0); EOS # 0.1 10^3/uL (0.0-0.50); EOS % 1.2 % (0.0-3.0); HEMATOCRIT 43.8 % (36.0-47.0); LYMPH # 0.8 10^3/uL (1.5-4.5); LYMPH % 14.3 % (24.0-44.0); MEAN CORPUSCULAR HEMOGLOBIN 30.2 pg (27.0-33.0); MEAN CORPUSCULAR VOLUME 94.4 fl (80.0-96.0); MONO # 0.6 10^3/uL (0.0-0.8); MONO % 10.6 % (0.0-5.0); NEUTROPHILS # 4.3 10^3/uL (1.8-7.7); NEUTROPHILS % 72.7 % (36.0-66.0); PLATELET COUNT, AUTOMATED 256 10^3/uL (150-450); RED BLOOD COUNT 4.64 10^6/uL (4.00-5.40); WHITE BLOOD COUNT 5.9 10^3/uL (4.0-10.0)
[2019-03-16 15:57] LABS: INR 4.22; PROTHROMBIN TIME 40.8 SECONDS (11.8-14.0)
[2019-03-16 15:58] LABS: PARTIAL THROMBOPLASTIN TIME 50.1 SECONDS (25.0-38.4)
[2019-03-16] MEDS ORDERED: ISOVUE-370 76% 100ML VIAL (Q9967) As Ordered ONE (15:59)
[2019-03-16 16:17] LABS: ALBUMIN 3.5 GM/DL (3.2-5.2); ALT/SGPT 21 U/L (12-78); BILIRUBIN,DIRECT 0.2 MG/DL (0.0-0.2); BILIRUBIN,TOTAL 0.8 MG/DL (0.2-1.0); BLOOD UREA NITROGEN 14 MG/DL (7-18); CARBON DIOXIDE LEVEL 26 MEQ/L (21-32); CHLORIDE LEVEL 104 MEQ/L (98-107); CK-MB VALUE MASS 1.8 NG/ML (<3.6); CPK CREATINE PHOSPHOKINASE 67 U/L (26-192); GLOMERULAR FILTRATION RATE 56.2 (>32); GLUCOSE, FASTING 103 MG/DL (70-100); MB/CK RELATIVE INDEX 2.69 (< OR =4); POTASSIUM SERUM 3.9 MEQ/L (3.5-5.1); SODIUM LEVEL 138 MEQ/L (136-145); TOTAL PROTEIN 7.5 GM/DL (6.4-8.2); TROPONIN I < 0.02 NG/ML (< 0.10)
--- NOTE | 2019-03-16 16:29 | REP ---
Clinical: Dizziness Comparison: 04/05/2009. Findings: Age-related atrophy and microvascular ischemic changes are appreciated. The ventricles and sulci are symmetric. Damon-white differentiation is maintained. There is no evidence for acute intracranial hemorrhage, mass/mass effect, pathology or infarction. No extra-axial fluid collection. Calvarium is intact. Paranasal sinuses and mastoid air cells are clear. Impression: Age related atrophy and microvascular ischemic changes. No acute intracranial hemorrhage, infarction, or mass/mass effect. Electronically Signed by Sergio Parker MD 03/16/2019 04:21 P
--- NOTE | 2019-03-16 16:45 | REP ---
Clinical: Left-sided abdominal pain. Technique: Axial contrast enhanced images from the lung bases to the pubic symphysis using 100 ml Isovue 370 intravenous contrast material with coronal and sagittal re-formations. Comparison: 11/29/2018. Findings: Lung bases demonstrate cardiomegaly and chronic interstitial changes. Liver, spleen, pancreas, and bilateral adrenal glands are normal. Cholelithiasis noted without acute cholecystitis. These demonstrate age-related cortical thinning without perinephric stranding or hydronephrosis. The enteric system is without obstruction or acute inflammatory process. Scattered colonic diverticula noted without acute diverticulitis. Pelvis demonstrates normal bladder and evidence for prior hysterectomy. No pelvic fluid or ascites. No free air. No adenopathy. Abdominal aorta demonstrates atherosclerotic changes without aneurysm or dissection. Musculoskeletal structures demonstrate age-related osteopenia and degenerative changes. Impression: 1. No acute abdominopelvic pathology appreciated. 2. Cholelithiasis. 3. Scattered colonic diverticula without acute diverticulitis. Electronically Signed by Sergio Parker MD 03/16/2019 04:36 P
--- NOTE | 2019-03-16 16:47 | REP ---
Clinical: Shortness of breath and dizziness. Technique: PA and lateral. Comparison: 02/23/2019. Findings: Stable generalized cardiomegaly. Lung spear demonstrate chronic interstitial changes. Previously noted elements of CHF and pulmonary edema are improved and only minimal left basilar atelectasis and possible small pleural effusion now identified. Impression: 1. Minimal basilar atelectasis and small residual pleural effusion suggested by lateral radiograph. Electronically Signed by Sergio Parker MD 03/16/2019 04:39 P
[2019-03-16] MEDS ORDERED: MECLIZINE 25 MG TABLET PO ONE (17:15)
[2019-03-16] MEDS ORDERED: ONDANSETRON 4MG/2ML VIAL (J2405) As Ordered ONE (18:34)
[2019-03-16] MEDS ORDERED: ONDANSETRON 4MG/2ML VIAL (J2405) IV ONE (18:45)
[2019-03-16] MEDS ORDERED: MECL-68 PO (19:08)
[2019-03-16 19:32] VITALS: BP 172/106
--- NOTE | 2019-03-17 13:32 | ED PDOC ---
Post-Departure Follow-Up dr richey faxed formal report of cxr fo rfu Alexis Geronimo MD Mar 17, 2019 13:32
--- NOTE | 2019-03-17 21:51 | ECGEPIP ---
[facility] - ED Test Date: 2019-03-16 Pat Name: CHICO DE LEON Department: Room: - Gender: Female [employer]: [employer] : [id number] Requested By: SHEELA SILVERIO Order Number: [id number] Reading MD: Naren Pfeiffer Measurements Intervals [place] Rate: 84 P: [place]: -1 QRS: 99 QRSD: 94 T: QT: 353 QTc: 419 Interpretive Statements ATRIAL FIBRILLATION BORDERLINE RIGHT AXIS DEVIATION NSTTW ABNORMALITIES RHYTHM/RATE CHANGE COMPARED TO 02/23/19 Electronically Signed on 03-17-2019 21:50:53 EDT by Naren Pfeiffer
== END 2019-03-16 19:40 | disposition home or self-care (01) ==
LOC: M ED 15:17
DX: H81.392 Other peripheral vertigo, left ear (principal); H61.22 Impacted cerumen, left ear; R79.89 Other specified abnormal findings of blood chemistry; K80.20 Calculus of gallbladder without cholecystitis without obstruction; I10 Essential (primary) hypertension; E78.5 Hyperlipidemia, unspecified; Z79.899 Other long term (current) drug therapy; Z79.01 Long term (current) use of anticoagulants
CPT/HCPCS: 69210; 70450; 71046; 74177; 80047; 80053; 82248; 82550; 82553; 84484; 85025; 85610; 85730; 93005; 96374; 99285; J2405; Q9967

== ENCOUNTER 2019-04-03 15:15 | Outpatient (RCR) | payer MEDICARE ==
[~2019-04-03 15:15] MED LIST changes: +MECL-68 PO
== END 2019-04-16 ==
LOC: M PT 15:15
PROVIDERS: ATTEND Family Medicine
DX: I48.91 Unspecified atrial fibrillation (principal); I50.9 Heart failure, unspecified

== ENCOUNTER → 2019-05-05 | Outpatient (REF) | payer MEDICARE, MEDICAID | LOC: M LAB REF 18:04 | PROVIDERS: ATTEND Family Medicine | DX: Z51.81 Encounter for therapeutic drug level monitoring (principal); Z79.899 Other long term (current) drug therapy; I48.0 Paroxysmal atrial fibrillation ==

== ENCOUNTER → 2019-05-05 | Outpatient (REF) | payer MEDICARE | LOC: M LAB REF 17:19 | PROVIDERS: ATTEND Family Medicine | DX: R30.0 Dysuria (principal) ==

== ENCOUNTER → 2019-08-20 | Outpatient (REF) | payer MEDICARE, MEDICAID | LOC: M LAB REF 18:16 | PROVIDERS: ATTEND Nurse Practitioner Adult Health | DX: Z79.01 Long term (current) use of anticoagulants (principal); I48.0 Paroxysmal atrial fibrillation ==

== ENCOUNTER → 2020-01-23 | Outpatient (REF) | payer MEDICARE, MEDICAID ==
[~2020-01-23] MED LIST changes: -DIGO0.12 PO; +DIGO0.123 PO; -MECL-68 PO; +MECL1TAB31 PO
== END ==
LOC: M LAB REF 16:00
PROVIDERS: ATTEND Nurse Practitioner Adult Health
DX: Z79.01 Long term (current) use of anticoagulants (principal); I48.0 Paroxysmal atrial fibrillation

== ENCOUNTER → 2020-05-20 | Outpatient (REF) ==
[~2020-05-20] MED LIST changes: +ACET1TAB55 PO; +ATEN25TA PO; +BISA10SU27 PR; +ELIQ2.5T PO; +ENSU1LIQ36 PO; +FAMO20TA PO; +FERR1TAB8 PO; +FIRV50SO PO; +FURO40TA2 PO; +KLOR10TA76 PO; +LOPE2CAP PO; +MAG400TA PO; +METO1TAB87 PO; +MOM30SS PO; +ONDA-83 PO; +SUCR1TAB56 PO; +VITA50005 PO
[2020-05-20 10:18] LABS: HEMATOCRIT 29.1 % (36.0-47.0); HEMOGLOBIN 9.5 g/dl (12.0-15.5); MEAN CORPUSCULAR HGB CONC 32.6 g/dl (32.0-36.5); MEAN CORPUSCULAR VOLUME 88.7 fl (80.0-96.0); PLATELET COUNT, AUTOMATED 381 10^3/uL (150-450); RED BLOOD COUNT 3.28 10^6/uL (4.00-5.40); WHITE BLOOD COUNT 6.9 10^3/uL (4.0-10.0)
[2020-05-20 11:03] LABS: BLOOD UREA NITROGEN 10 MG/DL (7-18); CALCIUM LEVEL 8.5 MG/DL (8.8-10.2); CARBON DIOXIDE LEVEL 24 MEQ/L (21-32); CHLORIDE LEVEL 98 MEQ/L (98-107); CREATININE FOR GFR 0.91 MG/DL (0.55-1.30); GLOMERULAR FILTRATION RATE > 60.0 (>32); GLUCOSE, FASTING 103 MG/DL (70-100); POTASSIUM SERUM 3.5 MEQ/L (3.5-5.1); SODIUM LEVEL 132 MEQ/L (136-145)
[2020-05-20 13:10] LABS: NT-PRO BNP 6017 PG/ML (<450)
== END ==
LOC: SKLAB7 07:00
PROVIDERS: ATTEND Internal Medicine
DX: I50.9 Heart failure, unspecified (principal); D64.9 Anemia, unspecified

== ENCOUNTER 2020-05-22 07:36 | Inpatient (IN) | payer MEDICARE ==
[~2020-05-22] VITALS: Ht 162.6 cm; Wt 44.2 kg
[~2020-05-22 07:36] MED LIST changes: -ACET1TAB55 PO; -ATEN25TA PO; -BISA10SU27 PR; -ELIQ2.5T PO; -ENSU1LIQ36 PO; -FAMO20TA PO; -FERR1TAB8 PO; -FIRV50SO PO; -FURO40TA2 PO; -KLOR10TA76 PO; -LOPE2CAP PO; -MAG400TA PO; -METO1TAB87 PO; -MOM30SS PO; -ONDA-83 PO; -SUCR1TAB56 PO; -VITA50005 PO
--- NOTE | 2020-05-22 08:25 | REPVR ---
PROCEDURE INFORMATION: Exam: CT Cervical Spine Without Contrast Exam date and time: 05/22/2020 8:06 AM Age: 84 years old Clinical indication: Injury or trauma; Fall; Initial encounter; Blunt trauma TECHNIQUE: Imaging protocol: Computed tomography images of the cervical spine without contrast. Radiation optimization: All CT scans at this facility use at least one of these dose optimization techniques: automated exposure control; mA and/or kV adjustment per patient size (includes targeted exams where dose is matched to clinical indication); or iterative reconstruction. COMPARISON: No relevant prior studies available. FINDINGS: Vertebrae: There is no evidence of fracture. Discs/Spinal canal/Neural foramina: The spine demonstrates moderate degenerative changes at multiple levels. Soft tissues: Unremarkable. Thyroid: The thyroid gland is normal. Lymph nodes: There are numerous prominent but non-pathologic lymph nodes in the neck. There are no nodes of pathologic dimensions. Lungs: See "Mediastinum" finding. Pleural space: There are moderate bilateral pleural effusions. Vasculature: The vasculature demonstrates diffuse moderate atherosclerotic calcification. Mediastinum: There is a 6 mm calcified granuloma at the medial right apex consistent with remote granulomatous disease. There is no evidence of active apical disease. Other findings: Limitation: Breathing is noted on these images limiting the interpretation. IMPRESSION: 1. There are moderate bilateral pleural effusions. 2. There is a 6 mm calcified granuloma at the medial right apex consistent with remote granulomatous disease. There is no evidence of active apical disease. 3. There is no evidence of fracture. Electronically signed by: Gregory Jenkins On 05/22/2020 08:24:35 AM
--- NOTE | 2020-05-22 08:30 | REPVR ---
PROCEDURE INFORMATION: Exam: CT Head Without Contrast Exam date and time: 05/22/2020 8:06 AM Age: 84 years old Clinical indication: Injury or trauma; Fall; Initial encounter; Blunt trauma (contusions or hematomas); Consciousness not specified TECHNIQUE: Imaging protocol: Computed tomography of the head without contrast. Radiation optimization: All CT scans at this facility use at least one of these dose optimization techniques: automated exposure control; mA and/or kV adjustment per patient size (includes targeted exams where dose is matched to clinical indication); or iterative reconstruction. COMPARISON: CT Head without contrast 03/16/2019 4:03 PM FINDINGS: Brain: There is moderate atrophy and chronic white matter microangiopathic changes. Ventricles: There is compensatory ventricular dilation. Bones/joints: There is no evidence of fracture. Sinuses: Visualized sinuses are unremarkable. No fluid levels. Mastoid air cells: Visualized mastoid air cells are well aerated. Vasculature: The vasculature demonstrates diffuse moderate atherosclerotic calcification. Soft tissues: Unremarkable. IMPRESSION: 1. There is no evidence of fracture. 2. No acute intracranial process is identified. Electronically signed by: Gregory Jenkins On 05/22/2020 08:30:22 AM
--- NOTE | 2020-05-22 08:32 | REPVR ---
PROCEDURE INFORMATION: Exam: XR Chest, 1 View Exam date and time: 05/22/2020 7:57 AM Age: 84 years old Clinical indication: Other: Fall TECHNIQUE: Imaging protocol: XR of the chest Views: 1 view. COMPARISON: CR Chest, 2 view PA, Lat 03/16/2019 4:17 PM FINDINGS: Lungs: There is focal consolidation in the left lung base, consistent with pneumonia. Pleural space: There is a moderate left pleural fluid collection present. There is a small right pleural fluid collection present. Heart/Mediastinum: The heart demonstrates moderate diffuse enlargement. Bones/joints: Unremarkable. IMPRESSION: 1. There is focal consolidation in the left lung base, consistent with pneumonia. 2. There is a moderate left pleural fluid collection present. There is a small right pleural fluid collection present. Electronically signed by: Gregory Jenkins On 05/22/2020 08:31:56 AM
--- NOTE | 2020-05-22 08:35 | REPVR ---
PROCEDURE INFORMATION: Exam: XR Right Humerus Exam date and time: 05/22/2020 7:57 AM Age: 84 years old Clinical indication: Other: Fall TECHNIQUE: Imaging protocol: XR Right humerus Views: 2 or more views. COMPARISON: No relevant prior studies available. FINDINGS: Bones/joints: There is no evidence of fracture. Soft tissues: Normal. IMPRESSION: There is no evidence of fracture. Electronically signed by: Gregory Jenkins On 05/22/2020 08:35:45 AM
--- NOTE | 2020-05-22 08:35 | REPVR ---
PROCEDURE INFORMATION: Exam: XR Pelvis Exam date and time: 05/22/2020 7:57 AM Age: 84 years old Clinical indication: Other: Fall TECHNIQUE: Imaging protocol: XR pelvis. Views: 1 or 2 view. COMPARISON: CT ABD/PEL W/IV CONTRAST ONLY 03/16/2019 4:07 PM FINDINGS: Bones/joints: The spine demonstrates moderate degenerative changes at multiple levels. There is no evidence of fracture. Soft tissues: Surgical clips kimi are seen in the left abdomen superimposed on the sacroiliac joint. IMPRESSION: There is no evidence of fracture. Electronically signed by: Gregory Jenkins On 05/22/2020 08:35:17 AM
--- NOTE | 2020-05-22 08:38 | REPVR ---
PROCEDURE INFORMATION: Exam: XR Right Forearm Exam date and time: 05/22/2020 7:57 AM Age: 84 years old Clinical indication: Other: Fall TECHNIQUE: Imaging protocol: XR Right forearm. Views: 2 views. COMPARISON: CR Humerus RIGHT 05/22/2020 8:04 AM FINDINGS: Bones/joints: There is chondrocalcinosis of the TFCC and scapholunate interface, consistent with calcium pyrophosphate deposition arthropathy. There is no evidence of fracture. Soft tissues: There are subcortical geodes of the proximal dorsal ulna without overlying soft tissue swelling to suggest tophaceous gout. This may be related to CPPD arthritic disease, however. IMPRESSION: 1. There is no evidence of fracture. 2. There are subcortical geodes of the proximal dorsal ulna without overlying soft tissue swelling to suggest tophaceous gout. This may be related to CPPD arthritic disease, however. Electronically signed by: Gregory Jenkins On 05/22/2020 08:37:23 AM
[2020-05-22 09:27] LABS: BASO % 0.3 % (0.0-1.0); EOS % 0.2 % (0.0-3.0); HEMATOCRIT 32.4 % (36.0-47.0); HEMOGLOBIN 10.4 g/dl (12.0-15.5); LYMPH # 0.7 10^3/uL (1.5-5.0); LYMPH % 6.7 % (24.0-44.0); MEAN CORPUSCULAR HEMOGLOBIN 28.6 pg (27.0-33.0); MEAN CORPUSCULAR HGB CONC 32.1 g/dl (32.0-36.5); MONO # 0.8 10^3/uL (0.0-0.8); MONO % 6.9 % (0.0-5.0); NEUTROPHILS # 9.2 10^3/uL (1.5-8.5); NEUTROPHILS % 84.3 % (36.0-66.0); PLATELET COUNT, AUTOMATED 384 10^3/uL (150-450); RED BLOOD COUNT 3.64 10^6/uL (4.00-5.40); WHITE BLOOD COUNT 10.9 10^3/uL (4.0-10.0)
[2020-05-22 09:38] LABS: INR 1.17; PARTIAL THROMBOPLASTIN TIME 33.6 SECONDS (25.0-38.4); PROTHROMBIN TIME 15.2 SECONDS (11.8-14.0)
[2020-05-22] MEDS ORDERED: NS 500 ML IV ONE (09:45)
[2020-05-22 10:05] LABS: ALBUMIN 2.6 GM/DL (3.2-5.2); ALT/SGPT 31 U/L (12-78); BILIRUBIN,DIRECT 0.1 MG/DL (0.0-0.2); BILIRUBIN,TOTAL 0.4 MG/DL (0.2-1.0); BLOOD UREA NITROGEN 10 MG/DL (7-18); CALCIUM LEVEL 8.9 MG/DL (8.8-10.2); CARBON DIOXIDE LEVEL 27 MEQ/L (21-32); CHLORIDE LEVEL 99 MEQ/L (98-107); CK-MB VALUE MASS 3.6 NG/ML (<3.6); CPK CREATINE PHOSPHOKINASE 107 U/L (26-192); DIGOXIN LEVEL < 0.1 NG/ML (0.5-2.0); GLOMERULAR FILTRATION RATE > 60.0 (>32); GLUCOSE, FASTING 106 MG/DL (70-100); LIPASE 98 U/L (73-393); MB/CK RELATIVE INDEX 3.36 (< OR =4); NT-PRO BNP 4951 PG/ML (<450); POTASSIUM SERUM 2.9 MEQ/L (3.5-5.1); SODIUM LEVEL 135 MEQ/L (136-145); TOTAL PROTEIN 6.6 GM/DL (6.4-8.2); TROPONIN I < 0.02 NG/ML (< 0.10)
[2020-05-22] MEDS ORDERED: METOPROLOL 5 MG/5 ML VIAL IV SCH (10:15)
[2020-05-22] MEDS ORDERED: SUCR1TAB56 PO (10:21)
[2020-05-22] MEDS ORDERED: ISOVUE-370 76% 100ML VIAL As Ordered ONE ×2 (10:21→11:02)
[2020-05-22] MEDS ORDERED: FAMO20TA PO (10:21)
[2020-05-22] MEDS ORDERED: FIRV50SO PO (10:21)
[2020-05-22] MEDS ORDERED: LOPE2CAP PO (10:21)
[2020-05-22] MEDS ORDERED: ONDA-83 PO (10:21)
[2020-05-22] MEDS ORDERED: VITA50005 PO (10:21)
[2020-05-22] MEDS ORDERED: FERR1TAB8 PO (10:21)
[2020-05-22] MEDS ORDERED: METO1TAB87 PO (10:21)
[2020-05-22 10:23] LABS: MAGNESIUM LEVEL 1.5 MG/DL (1.8-2.4)
[2020-05-22] MEDS ORDERED: POTASSIUM CHLORIDE 10 MEQ SR TABLET PO ONE (10:45)
[2020-05-22] MEDS ORDERED: ENSU1LIQ36 PO (11:16)
[2020-05-22] MEDS ORDERED: FURO40TA2 PO (11:16)
[2020-05-22] MEDS ORDERED: BISA10SU27 PR (11:18)
[2020-05-22] MEDS ORDERED: ACET1TAB55 PO (11:18)
[2020-05-22] MEDS ORDERED: MOM30SS PO (11:18)
[2020-05-22] MEDS ORDERED: METOPROLOL TART 25 MG TABLET PO ONE (11:30)
--- NOTE | 2020-05-22 11:46 | REPVR ---
PROCEDURE INFORMATION: Exam: CT Angiography Chest With Contrast Exam date and time: 05/22/2020 10:55 AM Age: 84 years old Clinical indication: Injury or trauma; Fall; Initial encounter; Blunt trauma (contusions or hematomas); Additional info: Fall, abdl pain, abnl cxr TECHNIQUE: Imaging protocol: Computed tomographic angiography of the chest with intravenous contrast. 3D rendering (Not supervised by radiologist): MIP and/or 3D reconstructed images were created by the technologist. Radiation optimization: All CT scans at this facility use at least one of these dose optimization techniques: automated exposure control; mA and/or kV adjustment per patient size (includes targeted exams where dose is matched to clinical indication); or iterative reconstruction. Contrast material: ISOVUE 370; Contrast volume: 50 ml; Contrast route: INTRAVENOUS (IV); COMPARISON: CT ANGIO CHEST 11/29/2018 2:23 PM FINDINGS: Pulmonary arteries: The pulmonary artery density is 424 units. There is no evidence of peripheral filling defects within the pulmonary arterial circulation to suggest pulmonary embolism. Aorta: Unremarkable. No aortic aneurysm. No aortic dissection. Veins: There is reflux of contrast into the hepatic veins suggesting right heart dysfunction. Lungs: There is moderate atelectasis in the bilateral lower lobes. Pneumonia is not excluded. Pleural space: Noncontrast survey of the chest demonstrates moderate bilateral pleural effusions. Heart: The RV/LV ratio is 43/37 mm suggesting right heart strain. The ratio of pulmonary artery to aortic root diameter is 36/34 mm suggesting pulmonary artery hypertension. Lymph nodes: Unremarkable. No enlarged lymph nodes. Liver: Upper abdomen: The visualized portions of the liver, pancreas, adrenal glands, and spleen show no significant abnormalities. Bones/joints: Unremarkable. No acute fracture. Soft tissues: Unremarkable. IMPRESSION: 1. Noncontrast survey of the chest demonstrates moderate bilateral pleural effusions. 2. There is moderate atelectasis in the bilateral lower lobes. Pneumonia is not excluded. 3. There is reflux of contrast into the hepatic veins suggesting right heart dysfunction. 4. The RV/LV ratio is 43/37 mm suggesting right heart strain. The ratio of pulmonary artery to aortic root diameter is 36/34 mm suggesting pulmonary artery hypertension. 5. There is no evidence of peripheral filling defects within the pulmonary arterial circulation to suggest pulmonary embolism. Electronically signed by: Gregory Jenkins On 05/22/2020 11:46:25 AM
[2020-05-22] MEDS ORDERED: LOPERAMIDE 2 MG CAPLET PO PRN (12:15)
[2020-05-22] MEDS ORDERED: MOM 30ML SUSPENSION UDC PO PRN (12:15)
[2020-05-22] MEDS ORDERED: BISACODYL 10 MG SUPP PR PRN (12:15)
[2020-05-22] MEDS ORDERED: ONDANSETRON 4 MG TAB PO PRN (12:15)
--- NOTE | 2020-05-22 12:22 | REPVR ---
PROCEDURE INFORMATION: Exam: CT Abdomen And Pelvis With Contrast Exam date and time: 05/22/2020 10:55 AM Age: 84 years old Clinical indication: Injury or trauma; Fall; Initial encounter; Blunt; Generalized; Additional info: Fall, abdl pain, abnl cxr TECHNIQUE: Imaging protocol: Computed tomography of the abdomen and pelvis with intravenous contrast. Radiation optimization: All CT scans at this facility use at least one of these dose optimization techniques: automated exposure control; mA and/or kV adjustment per patient size (includes targeted exams where dose is matched to clinical indication); or iterative reconstruction. Contrast material: ISOVUE 370; Contrast volume: 50 ml; Contrast route: INTRAVENOUS (IV); COMPARISON: CT ABD/PEL W/IV CONTRAST ONLY 03/16/2019 4:07 PM FINDINGS: Lungs: Chest/lung findings are dictated separately. Liver: Normal. No mass. Gallbladder and bile ducts: Cholelithiasis. No abnormal gallbladder distension. No significant biliary ductal dilatation. Pancreas: Normal. No ductal dilation. Spleen: Normal. No splenomegaly. Adrenals: Chronic mild left adrenal gland thickening. Kidneys and ureters: Normal. No hydronephrosis. Stomach and bowel: Colonic diverticulosis. No evidence of acute diverticulitis. Patient appears to be status post right hemicolectomy with ileocolonic anastomosis. No evidence of bowel obstruction. Appendix: No evidence of appendicitis. Intraperitoneal space: Mild ascites. Vasculature: Moderate atherosclerotic changes. Hepatic venous reflux, suggestive of right-sided cardiac insufficiency Lymph nodes: Unremarkable. No enlarged lymph nodes. Bladder: Unremarkable as visualized. Reproductive: The patient appears to be status post hysterectomy. Bones/joints: Degenerative change of the spine. Mild bilateral sacroiliac joint DJD. Mild bilateral hip joint DJD. Degenerative change of the pubic symphysis. Chronic mild L3 vertebral body compression fracture. No acute fracture. Soft tissues: Mild anasarca. IMPRESSION: 1. No acute injury is identified within the abdomen/pelvis. 2. Mild ascites and mild anasarca. 3. Cholelithiasis. 4. Colonic diverticulosis. Electronically signed by: Hattie Gutierrez On 05/22/2020 12:22:08 PM
[2020-05-22] MEDS: FERROUS SULFATE 325MG TAB PO SCH ×2 (12:41→20:11)
[2020-05-22] MEDS: FAMOTIDINE 20 MG TAB PO SCH ×2 (12:41→20:07)
[2020-05-22] MEDS: FUROSEMIDE 40MG/4ML VIAL (J1940) IV SCH ×2 (12:42→23:45)
[2020-05-22] MEDS: SUCRALFATE 1 GM TAB PO SCH ×3 (12:42→20:08)
--- NOTE | 2020-05-22 12:49 | HPEPDOC ---
General Date of Admission May 22, 2020 at 12:09 Date of Service: May 22, 2020 Chief Complaint The patient is a 84-year-old female admitted with a reason for visit of Chf Syncope. Source: Patient Exam Limitations: No limitations Timing/Duration: 4-6 hours Severity: Mild Associated Symptoms: Syncope History of Present Illness Pt is 84-year-old woman with chronic atypical atrial flutter and systemic hypertension presented to the hospital after mechanical fall. Pt stated that she fell down during the night and she was on the floor for few hours. She is poor historian. She does not remember what happened before her fall. She denied any seizure like activities. In ER imaging studies was negative for acute fractures, stroke or intracranial bleed. Pt was found to have profound electrolytes abnormalities, hypokalemia and hypomagnesemia. Also pt was found to have afib with RVR. Also pt was found to have elevated BNP over 4000 Pt denied fever, chills, n/v, diarrhea or dysuria Home Medications Scheduled Ergocalciferol (Vitamin D2) (Vitamin D2) 50,000 Units Cap, 50,000 UNITS PO 1XWK, (Reported) SUNDAY Famotidine (Famotidine) 20 Mg Tablet, 20 MG PO BID, (Reported) Ferrous Sulfate (Ferrous Sulfate) 325 Mg Tablet, 325 MG PO BID, (Reported) Furosemide (Furosemide) 40 Mg Tablet, 40 MG PO BID, (Reported) 2ND DOSE @ 1300 Lactose-Reduced Food (Ensure Enlive) 237 Ml Liquid, 120 ML PO BID, (Reported) Metoprolol Tartrate (Metoprolol Tartrate) 25 Mg Tablet, 25 MG PO BID, (Reported) Sucralfate (Sucralfate) 1 Gm Tablet, 1 GM PO QID, (Reported) Travoprost (Travatan Z) 50 Drop/2.5 Ml Soln, 1 DROP OU QHS, (Reported) Vancomycin HCl (Firvanq) 50 Mg/1 Ml Soln.recon, 2.5 ML PO QID, (Reported) Scheduled PRN Acetaminophen (Acetaminophen) 325 Mg Tablet, 650 MG PO Q4H PRN for PAIN / FEVER, (Reported) Bisacodyl (Bisacodyl) 10 Mg Supp.rect, 10 MG MT DAILY PRN for CONSTIPATION, (Reported) Loperamide HCl (Loperamide) 2 Mg Capsule, 2 MG PO QID PRN for DIARRHEA, (Reporte d) Milk Of Magnesia (Milk of Magnesia) 2,400 Mg/10 Ml Oral.susp, 10 ML PO DAILY PRN for CONSTIPATION, (Reported) Ondansetron HCl (Ondansetron HCl) 4 Mg Tablet, 4 MG PO Q8H PRN for NAUSEA OR VOMITING, (Reported) Allergies Coded Allergies: No Known Allergies (Unverified , 10/06/09) Past Medical History Medical History Chronic atypical atrial flutter, systemic hypertension, chronic bilateral leg edema, hypercholesterolemia, gastroesophageal reflux disease (GERD), status post hysterectomy, prior broken back, prior hysterectomy, anemia. Surgical History status post hysterectomy, prior broken back, prior hysterectomy Family History Mother had systemic hypertension and diabetes. One sister with diabetes. Social History * Smoker: non-smoker Alcohol: Denies Drugs: denies A-FIB/CHADSVASC A-FIB History Current/History of A-Fib/PAF?: Yes Current PO Anticoag Therapy: Yes Review of Systems Constitutional: Denies: Chills Eyes: Denies: Pain ENT: Denies: Head Aches Skin: Denies: Itching, Dry Pulmonary: Denies: Dyspnea Cardiovascular: Denies: Chest Pain Gastrointestinal: Denies: Nausea, Vomiting Genitourinary: Denies: Dysuria Hematologic: Denies: Bruising Endocrine: Denies: Polydipsia Musculoskeletal: Reports: Arm Pain; Denies: Neck Pain Neurological: Denies: Weakness Psych: Reports: Mood Normal Physical Examination General Exam: Positive: Alert, Cooperative Eye Exam: Positive: PERRLA ENT Exam: Negative: Atraumatic (right supraorbital hematoma) Neck Exam: Positive: Supple, JVD; Negative: thyromegaly Chest Exam: Positive: Diminished Heart Exam: Positive: Tachycardic Telemetry: Positive: Atrial fibrillation Abdomen Exam: Positive: Normal bowel sounds Extremity Exam: Negative: Clubbing, Cyanosis Skin Exam: Negative: Rash Neuro Exam: Positive: Cranial Nerves 3-12 NL, Reflexes 2+ Psych Exam: Positive: Mental status NL Vital Signs Vital Signs Date Time Temp Pulse Resp B/P (MAP) Pulse Ox O2 Delivery O2 Flow Rate FiO2 05/22/20 11:45 16 137/97 (110) 100 Room Air 05/22/20 11:35 100 05/22/20 07:42 95.8 Laboratory Data Labs 24H Laboratory Tests 2 05/22/20 09:04: Lactic Acid Level 2.9*H 05/22/20 09:05: Immature Granulocyte % (Auto) 1.6, Neutrophils (%) (Auto) 84.3H, Lymphocytes (%) (Auto) 6.7L, Monocytes (%) (Auto) 6.9H, Eosinophils (%) (Auto) 0.2, Basophils (%) (Auto) 0.3, Neutrophils # (Auto) 9.2H, Lymphocytes # (Auto) 0.7L, Monocytes # (Auto) 0.8, Eosinophils # (Auto) 0.0, Basophils # (Auto) 0.0, Nucleated Red Blood Cells % (auto) 0.0, Prothrombin Time 15.2H, Prothromb Time International Ratio 1.17, Activated Partial Thromboplast Time 33.6, Anion Gap 9, Glomerular Filtration Rate > 60.0, Calcium Level 8.9, Magnesium Level 1.5L, Total Bilirubin 0.4, Direct Bilirubin 0.1, Aspartate Amino Transf (AST/SGOT) 33, Alanine Aminotransferase (ALT/SGPT) 31, Alkaline Phosphatase 95, Total Creatine Kinase 107, Creatine Kinase MB 3.6, Creatine Kinase MB Relative Index 3.36, Troponin I < 0.02, VW-Etq-L-Type Natriuretic Peptide 4951H, Total Protein 6.6, Albumin 2.6L, Albumin/Globulin Ratio 0.7L, Lipase 98, Digoxin Level < 0.1L CBC/BMP Laboratory Tests 05/22/20 09:05 Microbiology Microbiology 05/22/20 Blood Culture, Received Pending 05/22/20 Blood Culture, Received Pending Assessment/Plan Pt is 83-year-old woman with chronic atypical atrial flutter and systemic hypertension presented to the hospital after mechanical fall. Pt stated that she fell down during the night and she was on the floor for few hours. She is poor historian. She does not remember what happened before her fall. She denied any seizure like activities. In ER imaging studies was negative for acute fractures, stroke or intracranial bleed. Pt was found to have profound electrolytes abnormalities, hypokalemia and hypomagnesemia. Also pt was found to have afib with RVR. Also pt was found to have elevated BNP over 4000 Pt denied fever, chills, n/v, diarrhea or dysuria Problems (1) Syncope Status: Acute Problem Text: unknown etiology Most likely vasovagal No any neurological deficit CT head negative Telemetry Echo (2) Congestive heart failure Status: Acute Problem Text: BNP >4000 b/l legs swelling +2 Lasix IV Is/Os fluid restriction to 1500 cc (3) Hypokalemia Status: Acute Problem Text: monitor BNP replaced (4) Fall Status: Acute Problem Text: PT/OT eval (5) Hypomagnesemia Status: Acute Problem Text: monitor BNP replaced (6) Abrasion head Status: Acute Problem Text: no current bleeding (7) Atrial fibrillation Status: Chronic Problem Text: Pt was not on the AC therapy I ll start Eliquis c/w home meds Plan / VTE VTE Prophylaxis Ordered?: Yes IBIS PENN DO May 22, 2020 12:49
[2020-05-22] MEDS: ACETAMINOPHEN TAB 650MG DOSE (2X325MG) PO PRN ×2 (13:47→20:13)
[2020-05-22 16:00] VITALS: BP 148/72
[2020-05-22] MEDS ORDERED: KCL 10MEQ/100ML SWI (KRUN) 10 MEQ in IV 1 EA IV ONE (17:00)
[2020-05-22 17:09] LABS: BLOOD UREA NITROGEN 10 MG/DL (7-18); CALCIUM LEVEL 8.6 MG/DL (8.8-10.2); CARBON DIOXIDE LEVEL 28 MEQ/L (21-32); CHLORIDE LEVEL 99 MEQ/L (98-107); CREATININE FOR GFR 0.72 MG/DL (0.55-1.30); GLOMERULAR FILTRATION RATE > 60.0 (>32); GLUCOSE, FASTING 86 MG/DL (70-100); POTASSIUM SERUM 3.5 MEQ/L (3.5-5.1); SODIUM LEVEL 134 MEQ/L (136-145)
[2020-05-22 20:00] VITALS: BP 125/81
[2020-05-22] MEDS: LATANOPROST 0.005% OPHTH SOLN 2.5 ML OU SCH (20:05)
[2020-05-22] MEDS: APIXABAN 2.5 MG TAB (ELIQUIS) PO SCH (20:08)
[2020-05-22] MEDS: METOPROLOL TART 25 MG TABLET PO SCH (20:10)
[2020-05-22 22:50] LABS: BLOOD UREA NITROGEN 10 MG/DL (7-18); CALCIUM LEVEL 8.1 MG/DL (8.8-10.2); CARBON DIOXIDE LEVEL 29 MEQ/L (21-32); CHLORIDE LEVEL 99 MEQ/L (98-107); CREATININE FOR GFR 0.81 MG/DL (0.55-1.30); GLOMERULAR FILTRATION RATE > 60.0 (>32); GLUCOSE, FASTING 84 MG/DL (70-100); POTASSIUM SERUM 3.4 MEQ/L (3.5-5.1); SODIUM LEVEL 137 MEQ/L (136-145)
[2020-05-23 04:00] VITALS: BP 137/72
[2020-05-23 04:23] LABS: HEMATOCRIT 30.4 % (36.0-47.0); HEMOGLOBIN 9.9 g/dl (12.0-15.5); MEAN CORPUSCULAR HEMOGLOBIN 28.4 pg (27.0-33.0); MEAN CORPUSCULAR HGB CONC 32.6 g/dl (32.0-36.5); MEAN CORPUSCULAR VOLUME 87.4 fl (80.0-96.0); PLATELET COUNT, AUTOMATED 323 10^3/uL (150-450); RED BLOOD COUNT 3.48 10^6/uL (4.00-5.40); WHITE BLOOD COUNT 6.1 10^3/uL (4.0-10.0)
[2020-05-23 04:51] LABS: ALBUMIN 2.5 GM/DL (3.2-5.2); ALT/SGPT 28 U/L (12-78); BILIRUBIN,TOTAL 0.5 MG/DL (0.2-1.0); BLOOD UREA NITROGEN 10 MG/DL (7-18); CALCIUM LEVEL 8.7 MG/DL (8.8-10.2); CARBON DIOXIDE LEVEL 28 MEQ/L (21-32); CHLORIDE LEVEL 99 MEQ/L (98-107); CREATININE FOR GFR 0.75 MG/DL (0.55-1.30); GLOMERULAR FILTRATION RATE > 60.0 (>32); GLUCOSE, FASTING 84 MG/DL (70-100); MAGNESIUM LEVEL 1.5 MG/DL (1.8-2.4); SODIUM LEVEL 135 MEQ/L (136-145); TOTAL PROTEIN 6.2 GM/DL (6.4-8.2)
[2020-05-23] MEDS: METOPROLOL TART 25 MG TABLET PO SCH (05:37)
[2020-05-23] MEDS ORDERED: POTASSIUM CHLORIDE 10 MEQ SR TABLET PO ONE ×3 (06:00→09:30)
[2020-05-23] MEDS ORDERED: MAGNESIUM OXIDE 400 MG TAB (MAG-OX) PO ONE (06:00)
[2020-05-23 07:25] VITALS: BP 142/76
[2020-05-23] MEDS: FAMOTIDINE 20 MG TAB PO SCH ×2 (09:06→21:47)
[2020-05-23] MEDS: APIXABAN 2.5 MG TAB (ELIQUIS) PO SCH ×2 (09:07→21:47)
[2020-05-23] MEDS: FERROUS SULFATE 325MG TAB PO SCH ×2 (09:07→21:47)
[2020-05-23] MEDS: SUCRALFATE 1 GM TAB PO SCH ×4 (09:07→21:47)
[2020-05-23] MEDS ORDERED: MAG SULF 1GM/100ML (MAG RUN) 1 GM in IV 1 EA IV ONE (10:00)
[2020-05-23] MEDS ORDERED: METOPROLOL TART 25 MG TABLET PO ONE (10:00)
--- NOTE | 2020-05-23 11:26 | IPNPDOC ---
Text Note Date of Service The patient was seen on 05/23/20. NOTE Subjective: No any events overnight. Pt stated that she is doing better today. No fever or chills. Objective: GENERAL APPEARANCE: NAD HEENT: no scleral icterus, + JVD, EOMI CARDIOVASCULAR: irregularly irregular with HR around 120 LUNGS: diminished lungs sounds ABDOMEN: soft & not tender w palpitation MUSCULOSKELETAL: +2 pitting edema b/l INTEGUMENT: Right supraorbital hematoma NEUROLOGICAL: cranial nerve function from 2-12 intact intact, follows commands, speech not dysarthric A/p Pt is 83-year-old woman with chronic atypical atrial flutter and systemic hyp ertension presented to the hospital after mechanical fall. Pt stated that she fell down during the night and she was on the floor for few hours. She is poor historian. She does not remember what happened before her fall. She denied any seizure like activities. In ER imaging studies was negative for acute fractures, stroke or intracranial bleed. Pt was found to have profound electrolytes abnormalities, hypokalemia and hypomagnesemia. Also pt was found to have afib with RVR. Also pt was found to have elevated BNP over 4000 Pt denied fever, chills, n/v, diarrhea or dysuria Problems (1) Syncope unknown etiology Most likely vasovagal or cardiogenic 2/2 afib with RVR No any neurological deficit CT head negative Telemetry Echo pending (2) Congestive heart failure BNP >4000 on admission b/l legs swelling +2 Lasix IV Is/Os fluid restriction to 1500 cc (3) Hypokalemia monitor BMP replaced (4) Fall PT/OT eval (5) Hypomagnesemia monitor BMP replaced (6) Abrasion head no current bleeding in stage of healing (7) Atrial fibrillation with RVR Pt was not on the AC therapy I increased the dose of metoprolol I ll start Eliquis VS,Fishbone, I+O VS, Fishbone, I+O Laboratory Tests 05/22/20 16:29 05/22/20 22:21 05/23/20 03:56 Vital Signs Date Time Temp Pulse Resp B/P (MAP) Pulse Ox O2 Delivery O2 Flow Rate FiO2 05/23/20 09:46 120 142/76 05/23/20 07:25 97.2 16 98 Room Air I&O- Last 24 Hours up to 6 AM 05/23/20 06:00 Intake Total 300 ml Output Total 300 ml Balance 0 ml IBIS PENN DO May 23, 2020 11:26
[2020-05-23 12:00] VITALS: BP 139/68
[2020-05-23 12:05] LABS: BLOOD UREA NITROGEN 11 MG/DL (7-18); CALCIUM LEVEL 8.7 MG/DL (8.8-10.2); CARBON DIOXIDE LEVEL 26 MEQ/L (21-32); CHLORIDE LEVEL 99 MEQ/L (98-107); CREATININE FOR GFR 0.77 MG/DL (0.55-1.30); GLOMERULAR FILTRATION RATE > 60.0 (>32); GLUCOSE, FASTING 90 MG/DL (70-100); SODIUM LEVEL 135 MEQ/L (136-145)
[2020-05-23] MEDS: FUROSEMIDE 40MG/4ML VIAL (J1940) IV SCH (12:32)
[2020-05-23 16:00] VITALS: BP 135/84
[2020-05-23 17:07] LABS: CALCIUM LEVEL 8.8 MG/DL (8.8-10.2); CREATININE FOR GFR 0.99 MG/DL (0.55-1.30); GLOMERULAR FILTRATION RATE 56.8 (>32); POTASSIUM SERUM 4.3 MEQ/L (3.5-5.1)
[2020-05-23 20:00] VITALS: BP 113/61
[2020-05-23] MEDS ORDERED: METOPROLOL TART 25 MG TABLET PO SCH (21:00)
[2020-05-23] MEDS: LATANOPROST 0.005% OPHTH SOLN 2.5 ML OU SCH (21:47)
[2020-05-23 22:27] LABS: CALCIUM LEVEL 8.6 MG/DL (8.8-10.2); CREATININE FOR GFR 1.17 MG/DL (0.55-1.30); GLOMERULAR FILTRATION RATE 46.8 (>32); POTASSIUM SERUM 3.8 MEQ/L (3.5-5.1)
[2020-05-24] MEDS: MAG SULF 1GM/100ML (MAG RUN) 1 GM in IV 1 EA IV SCH ×2 (00:30→22:15)
[2020-05-24] MEDS: FUROSEMIDE 40MG/4ML VIAL (J1940) IV SCH (00:46)
[2020-05-24 04:00] VITALS: BP 134/73
[2020-05-24] MEDS: ACETAMINOPHEN TAB 650MG DOSE (2X325MG) PO PRN ×4 (04:10→21:42)
[2020-05-24 04:39] LABS: CALCIUM LEVEL 9.1 MG/DL (8.8-10.2); CREATININE FOR GFR 1.08 MG/DL (0.55-1.30); GLOMERULAR FILTRATION RATE 51.3 (>32); MAGNESIUM LEVEL 1.8 MG/DL (1.8-2.4); POTASSIUM SERUM 3.9 MEQ/L (3.5-5.1)
[2020-05-24 04:42] LABS: HEMATOCRIT 33.9 % (36.0-47.0); HEMOGLOBIN 10.9 g/dl (12.0-15.5); MEAN CORPUSCULAR HEMOGLOBIN 28.3 pg (27.0-33.0); MEAN CORPUSCULAR HGB CONC 32.2 g/dl (32.0-36.5); MEAN CORPUSCULAR VOLUME 88.1 fl (80.0-96.0); PLATELET COUNT, AUTOMATED 374 10^3/uL (150-450); RED BLOOD COUNT 3.85 10^6/uL (4.00-5.40); WHITE BLOOD COUNT 7.4 10^3/uL (4.0-10.0)
[2020-05-24 08:00] VITALS: BP 137/84
[2020-05-24] MEDS: FERROUS SULFATE 325MG TAB PO SCH ×2 (08:47→21:40)
[2020-05-24] MEDS: APIXABAN 2.5 MG TAB (ELIQUIS) PO SCH ×2 (08:47→21:40)
[2020-05-24] MEDS: METOPROLOL TART 50 MG TAB PO SCH ×3 (08:48→21:41)
[2020-05-24] MEDS: SUCRALFATE 1 GM TAB PO SCH ×4 (08:49→21:40)
[2020-05-24] MEDS: FAMOTIDINE 20 MG TAB PO SCH ×2 (08:49→21:41)
[2020-05-24] MEDS ORDERED: VITAMIN D 50,000 UNITS CAPSULE (ERGOCALCIFEROL 1.25MG) PO SCH (09:00)
--- NOTE | 2020-05-24 10:23 | IPNPDOC ---
Text Note Date of Service The patient was seen on 05/24/20. NOTE Subjective: No any events overnight. Pt stated that she is doing better today. No fever or chills. Pt alert, oriented, awake Objective: GENERAL APPEARANCE: NAD HEENT: no scleral icterus, + JVD, EOMI CARDIOVASCULAR: irregularly irregular with HR around 105 LUNGS: diminished lungs sounds ABDOMEN: soft & not tender w palpitation MUSCULOSKELETAL: +2 pitting edema b/l INTEGUMENT: Right supraorbital hematoma NEUROLOGICAL: cranial nerve function from 2-12 intact intact, follows commands, speech not dysarthric A/p Pt is 83-year-old woman with chronic atypical atrial flutter and systemic hypertension presented to the hospital after mechanical fall. Pt stated that she fell down during the night and she was on the floor for few hours. She is poor historian. She does not remember what happened before her fall. She denied any seizure like activities. In ER imaging studies was negative for acute fractures, stroke or intracranial bleed. Pt was found to have profound electrolytes abnormalities, hypokalemia and hypomagnesemia. Also pt was found to have afib with RVR. Also pt was found to have elevated BNP over 4000 Pt denied fever, chills, n/v, diarrhea or dysuria Problems (1) Syncope unknown etiology Most likely vasovagal or cardiogenic 2/2 afib with RVR No any neurological deficit CT head negative Telemetry Echo pending (2) Congestive heart failure BNP >4000 on admission b/l legs swelling +2 Lasix IV Is/Os fluid restriction to 1500 cc (3) Hypokalemia monitor BMP replaced (4) Fall PT/OT eval (5) Hypomagnesemia monitor BMP replaced (6) Abrasion head no current bleeding in stage of healing (7) Atrial fibrillation with RVR HR is under control in the morning Pt was not on the AC therapy I increased the dose of metoprolol c/w Eliquis VS,Fishbone, I+O VS, Fishbone, I+O Laboratory Tests 05/23/20 11:11 05/23/20 16:24 05/23/20 21:48 05/24/20 04:03 Vital Signs Date Time Temp Pulse Resp B/P (MAP) Pulse Ox O2 Delivery O2 Flow Rate FiO2 05/24/20 08:48 108 137/84 05/24/20 08:00 97.3 20 96 Room Air I&O- Last 24 Hours up to 6 AM 05/24/20 06:00 Intake Total 240 ml Output Total 550 ml Balance -310 ml IBIS PENN DO May 24, 2020 10:23
[2020-05-24 11:19] LABS: CALCIUM LEVEL 8.9 MG/DL (8.8-10.2); CREATININE FOR GFR 1.01 MG/DL (0.55-1.30); GLOMERULAR FILTRATION RATE 55.5 (>32); POTASSIUM SERUM 3.4 MEQ/L (3.5-5.1)
[2020-05-24 12:00] VITALS: BP 122/72
[2020-05-24] MEDS ORDERED: POTASSIUM CHLORIDE 10 MEQ SR TABLET PO ONE (12:00)
[2020-05-24] MEDS: FUROSEMIDE 40 MG TAB PO SCH (12:28)
[2020-05-24 16:00] VITALS: BP 108/70
[2020-05-24 20:00] VITALS: BP 105/61
[2020-05-24] MEDS: LATANOPROST 0.005% OPHTH SOLN 2.5 ML OU SCH (21:41)
[2020-05-24 21:47] LABS: CALCIUM LEVEL 8.3 MG/DL (8.8-10.2); CREATININE FOR GFR 1.06 MG/DL (0.55-1.30); GLOMERULAR FILTRATION RATE 52.4 (>32); MAGNESIUM LEVEL 1.6 MG/DL (1.8-2.4); PHOSPHORUS LEVEL 2.7 MG/DL (2.5-4.9); POTASSIUM SERUM 3.7 MEQ/L (3.5-5.1)
[2020-05-25] VITALS: BP 112/68
[2020-05-25] MEDS: MAG SULF 1GM/100ML (MAG RUN) 1 GM in IV 1 EA IV SCH (01:46)
[2020-05-25 04:00] VITALS: BP 136/82
[2020-05-25 04:31] LABS: HEMATOCRIT 32.2 % (36.0-47.0); HEMOGLOBIN 10.2 g/dl (12.0-15.5); MEAN CORPUSCULAR HEMOGLOBIN 28.2 pg (27.0-33.0); MEAN CORPUSCULAR HGB CONC 31.7 g/dl (32.0-36.5); PLATELET COUNT, AUTOMATED 321 10^3/uL (150-450); RED BLOOD COUNT 3.62 10^6/uL (4.00-5.40); WHITE BLOOD COUNT 8.5 10^3/uL (4.0-10.0)
[2020-05-25 05:03] LABS: BLOOD UREA NITROGEN 13 MG/DL (7-18); CALCIUM LEVEL 8.3 MG/DL (8.8-10.2); CARBON DIOXIDE LEVEL 28 MEQ/L (21-32); CHLORIDE LEVEL 99 MEQ/L (98-107); CREATININE FOR GFR 0.88 MG/DL (0.55-1.30); GLOMERULAR FILTRATION RATE > 60.0 (>32); GLUCOSE, FASTING 87 MG/DL (70-100); MAGNESIUM LEVEL 2.8 MG/DL (1.8-2.4); POTASSIUM SERUM 3.5 MEQ/L (3.5-5.1); SODIUM LEVEL 132 MEQ/L (136-145)
[2020-05-25] MEDS: ACETAMINOPHEN TAB 650MG DOSE (2X325MG) PO PRN (07:03)
[2020-05-25 08:00] VITALS: BP 141/75
[2020-05-25 08:44] LABS: FERRITIN 103 NG/ML (8-252); IRON (FE) 38 UG/DL (50-170); PERCENT SATURATION 13.4 % (13.2-45.0); TOTAL IRON BINDING CAPACITY 284 UG/DL (250-450)
[2020-05-25] MEDS: FUROSEMIDE 40 MG TAB PO SCH ×2 (09:00→18:14)
[2020-05-25] MEDS: APIXABAN 2.5 MG TAB (ELIQUIS) PO SCH ×2 (09:00→21:01)
[2020-05-25] MEDS: FAMOTIDINE 20 MG TAB PO SCH ×2 (09:00→21:01)
[2020-05-25] MEDS: METOPROLOL TART 50 MG TAB PO SCH ×3 (09:00→21:05)
[2020-05-25] MEDS: SUCRALFATE 1 GM TAB PO SCH ×4 (09:00→21:02)
[2020-05-25] MEDS: FERROUS SULFATE 325MG TAB PO SCH ×2 (09:00→21:01)
[2020-05-25 11:02] LABS: FOLATE 11.5 NG/ML (>5.4)
[2020-05-25 12:00] VITALS: BP 136/76
--- NOTE | 2020-05-25 14:25 | IPNPDOC ---
Text Note Date of Service The patient was seen on 05/25/20. NOTE Subjective: No any events overnight. Pt stated that she is doing better today. No fever or chills. Pt alert, oriented, awake. Objective: Vitals: Noted as below GENERAL APPEARANCE: NAD, sitting up in chair. HEENT: no scleral icterus, EOMI, No icterus, MMM. , Has a abrasion on the head. Bitemporal wasting. CARDIOVASCULAR: irregularly irregular with HR around 100, No Rub/ murmur or gallop LUNGS: diminished lungs sounds bilaterally at the bases. ABDOMEN: soft & not tender w palpitation, bowel sounds normal. Extremities: +2 pitting edema b/l INTEGUMENT: Right supraorbital hematoma NEUROLOGICAL: cranial nerve function from 2-12 intact intact, follows commands, speech not dysarthric Labs and Radiology: reviewed. A/p Pt is 83-year-old woman with chronic atypical atrial flutter, hypertension, glaucoma, vertigo, presented to the hospital after mechanical fall. Pt stated that she fell down during the night and she was on the floor for few hours. She is poor historian. She does not remember what happened before her fall. She denied any seizure like activities. In ER imaging studies was negative for acute fractures, stroke or intracranial bleed. Pt was found to have profound electrolytes abnormalities, hypokalemia and hypomagnesemia. Also pt was found to have afib with RVR. Also pt was found to have elevated BNP over 4000 Pt denied fever, chills, n/v, diarrhea or dysuria ? Syncope and collapse/ mechanical fall with underlying age related dementia so could not recall how she fell. Most likely vasovagal or cardiogenic 2/2 afib with RVR No any neurological deficit CT head negative Echo from 2019 noted. No significant valvular disease Atrial Flutter/ Atrial fibrillation with RVR HR controlled Continue Eliquis and increased dose of Metoprolol. Congestive heart failure with Preserved EF BNP >4000 on admission b/l legs swelling +2 Continue Lasix. Is/Os fluid restriction to 1500 cc Hypokalemia/ Hypomagnesemia monitor BMP replaced Fall PT/OT eval Hypomagnesemia monitor BMP replaced Severe protein calorie malnutrition age related BMI of 12 Bitemporal wasting. Dispo: To rehab. DOMINGO,Samira, I+O VS, Samira, I+O Laboratory Tests 05/24/20 21:16 05/25/20 04:20 Vital Signs Date Time Temp Pulse Resp B/P (MAP) Pulse Ox O2 Delivery O2 Flow Rate FiO2 05/25/20 12:00 98.0 86 18 136/76 (96) 98 Room Air I&O- Last 24 Hours up to 6 AM 05/25/20 06:00 Intake Total 400 ml Output Total 370 ml Balance 30 ml ANGEL YEUNG MD May 25, 2020 14:25
[2020-05-25] MEDS: POTASSIUM CHLORIDE 10 MEQ SR TABLET PO SCH (14:57)
[2020-05-25 15:52] VITALS: BP 129/69
[2020-05-25] MEDS: LATANOPROST 0.005% OPHTH SOLN 2.5 ML OU SCH (21:02)
[2020-05-26] MEDS: ACETAMINOPHEN TAB 650MG DOSE (2X325MG) PO PRN (00:41)
[2020-05-26 06:00] VITALS: BP 123/71
[2020-05-26 06:27] LABS: HEMATOCRIT 31.5 % (36.0-47.0); HEMOGLOBIN 10.1 g/dl (12.0-15.5); MEAN CORPUSCULAR HEMOGLOBIN 28.6 pg (27.0-33.0); MEAN CORPUSCULAR HGB CONC 32.1 g/dl (32.0-36.5); MEAN CORPUSCULAR VOLUME 89.2 fl (80.0-96.0); PLATELET COUNT, AUTOMATED 345 10^3/uL (150-450); RED BLOOD COUNT 3.53 10^6/uL (4.00-5.40); WHITE BLOOD COUNT 6.4 10^3/uL (4.0-10.0)
[2020-05-26 06:41] LABS: BLOOD UREA NITROGEN 16 MG/DL (7-18); CALCIUM LEVEL 8.5 MG/DL (8.8-10.2); CARBON DIOXIDE LEVEL 28 MEQ/L (21-32); CHLORIDE LEVEL 99 MEQ/L (98-107); CREATININE FOR GFR 0.88 MG/DL (0.55-1.30); GLOMERULAR FILTRATION RATE > 60.0 (>32); GLUCOSE, FASTING 79 MG/DL (70-100); POTASSIUM SERUM 3.5 MEQ/L (3.5-5.1); SODIUM LEVEL 134 MEQ/L (136-145)
[2020-05-26] MEDS: METOPROLOL TART 50 MG TAB PO SCH (09:00)
[2020-05-26] MEDS: FUROSEMIDE 40 MG TAB PO SCH ×3 (09:00→17:51)
[2020-05-26] MEDS: SUCRALFATE 1 GM TAB PO SCH ×4 (09:31→21:23)
[2020-05-26] MEDS: POTASSIUM CHLORIDE 10 MEQ SR TABLET PO SCH (09:32)
[2020-05-26] MEDS: FERROUS SULFATE 325MG TAB PO SCH ×2 (09:32→21:23)
[2020-05-26] MEDS: FAMOTIDINE 20 MG TAB PO SCH ×2 (09:32→21:23)
[2020-05-26] MEDS: APIXABAN 2.5 MG TAB (ELIQUIS) PO SCH ×2 (09:32→21:23)
--- NOTE | 2020-05-26 13:38 | IPNPDOC ---
Text Note Date of Service The patient was seen on 05/26/20. NOTE Subjective: No any events overnight. Pt stated that she is doing better today. No fever or chills. Pt alert, oriented, awake. Her legs are more swollen than before. Her BP is low normal. Objective: Vitals: Noted as below GENERAL APPEARANCE: NAD, sitting up in chair. HEENT: no scleral icterus, EOMI, No icterus, MMM. , Has a abrasion on the head. Bitemporal wasting. CARDIOVASCULAR: irregularly irregular with HR around 100, No Rub/ murmur or gallop LUNGS: diminished lungs sounds bilaterally at the bases. ABDOMEN: soft & not tender w palpitation, bowel sounds normal. Extremities: +2 pitting edema b/l INTEGUMENT: Right supraorbital hematoma NEUROLOGICAL: cranial nerve function from 2-12 intact intact, follows commands, speech not dysarthric Labs and Radiology: reviewed. A/p Pt is 83-year-old woman with chronic atypical atrial flutter, hypertension, glaucoma, vertigo, presented to the hospital after mechanical fall. Pt stated that she fell down during the night and she was on the floor for few hours. She is poor historian. She does not remember what happened before her fall. She denied any seizure like activities. In ER imaging studies was negative for acute fractures, stroke or intracranial bleed. Pt was found to have profound electrolytes abnormalities, hypokalemia and hypomagnesemia. Also pt was found to have afib with RVR. Also pt was found to have elevated BNP over 4000. admitted for CHF exacerbation. ? Syncope and collapse/ mechanical fall with underlying age related dementia so could not recall how she fell. Most likely Mechanical fall vs vasovagal No any neurological deficit CT head negative Echo from 2019 noted. No significant valvular disease Atrial Flutter/ Atrial fibrillation with RVR HR controlled Continue Eliquis BP soft will dc metoprolol and start on atenolol low dose and add digoxin for heart rate control Congestive heart failure with Preserved EF BNP >4000 on admission b/l legs swelling +2 Continue Lasix. Is/Os fluid restriction to 1500 cc Hypokalemia/ Hypomagnesemia monitor BMP replaced Fall PT/OT eval Severe protein calorie malnutrition age related BMI of 12 Bitemporal wasting. Dispo: To rehab. VS,Samira, I+O VS, Fishbone, I+O Laboratory Tests 05/26/20 05:58 Vital Signs Date Time Temp Pulse Resp B/P (MAP) Pulse Ox O2 Delivery O2 Flow Rate FiO2 05/26/20 09:00 98 97/57 05/26/20 06:00 97.8 18 95 Room Air I&O- Last 24 Hours up to 6 AM 05/26/20 06:00 Intake Total 960 ml Output Total 950 ml Balance 10 ml ANGEL YEUNG MD May 26, 2020 13:38
--- NOTE | 2020-05-26 14:14 | ECHO ---
DATE OF PROCEDURE: 05/25/2020 Height: 163 cm Weight: 52 kg REFERRING PHYSICIAN: INDICATION: Congestive heart failure. DIMENSIONS: IVS 1.1 cm LV 4.1 cm LVPW 1.0 cm LA 3.1 cm Aorta 3.2 cm IVC 2.0 cm FINDINGS: The study is of good technical quality. The patient is in atrial fibrillation with controlled rate. Left ventricle is normal size and grossly preserved contractility. I estimate ejection fraction (EF) around 605. I do not appreciate distinct segmental wall motion abnormalities. Right ventricle appears at least mildly dilated. There is severe biatrial enlargement. Aortic valve is prominently sclerotic, but it has three cusps and grossly preserved mobility. Mitral valve exhibits degenerative abnormalities with mitral annular calcifications and some thickening of mitral leaflets. In appropriate clinical settings, cannot completely rule out presence of vegetations. Tricuspid and pulmonic valves appear grossly normal. No pericardial effusion is noted. Inferior vena cava is in upper limits of normal size, but there is no appreciable collapse with inspiration indicative of likely elevated central venous pressure. Aortic root is normal. Aortic arch and abdominal aorta were poorly visualized. Left pleural effusion is noted. Doppler interrogation of the aortic valve reveals no significant stenosis. There is approximately [id number] aortic insufficiency. Color Doppler imaging of the mitral valve reveals approximately moderate mitral insufficiency with centrally oriented jet. There is severe tricuspid insufficiency. Calculated pulmonary artery pressure is approximately 40 mmHg corresponding to moderate pulmonary hypertension. [id number] pulmonic insufficiency is also noted. Evaluation of diastolic function is inconclusive due to underlying atrial fibrillation. CONCLUSIONS: 1. Study is of good technical quality, patient is in atrial fibrillation with controlled rate. 2. Normal LV size with normal LV systolic function. 3. Dilated right ventricle. 4. Severe biatrial enlargement. 5. Aortic sclerosis with no significant stenosis and approximately [id number]-yrwaqdue aortic insufficiency. 6. At least moderate mitral insufficiency. 7. Severe tricuspid insufficiency. 8. Elevated central venous pressure and at least moderate pulmonary hypertension. MTDD
[2020-05-26] MEDS: DIGOXIN 0.125 MG TAB PO SCH (15:46)
[2020-05-26] MEDS: atenoloL 25 MG TAB PO SCH (20:58)
[2020-05-26] MEDS ORDERED: atenoloL 50 MG TAB PO SCH (21:00)
[2020-05-26] MEDS: LATANOPROST 0.005% OPHTH SOLN 2.5 ML OU SCH (21:23)
[2020-05-26 22:00] VITALS: BP 97/61
[2020-05-26 22:52] VITALS: BP 108/70
[2020-05-27 06:00] VITALS: BP 141/85
[2020-05-27 06:04] LABS: HEMATOCRIT 32.8 % (36.0-47.0); HEMOGLOBIN 10.3 g/dl (12.0-15.5); MEAN CORPUSCULAR HEMOGLOBIN 28.3 pg (27.0-33.0); MEAN CORPUSCULAR HGB CONC 31.4 g/dl (32.0-36.5); MEAN CORPUSCULAR VOLUME 90.1 fl (80.0-96.0); PLATELET COUNT, AUTOMATED 380 10^3/uL (150-450); RED BLOOD COUNT 3.64 10^6/uL (4.00-5.40); WHITE BLOOD COUNT 6.2 10^3/uL (4.0-10.0)
[2020-05-27 06:38] LABS: CALCIUM LEVEL 8.6 MG/DL (8.8-10.2); CREATININE FOR GFR 1.05 MG/DL (0.55-1.30); MAGNESIUM LEVEL 1.8 MG/DL (1.8-2.4); POTASSIUM SERUM 3.5 MEQ/L (3.5-5.1)
[2020-05-27] MEDS: FAMOTIDINE 20 MG TAB PO SCH ×2 (08:50→21:28)
[2020-05-27] MEDS: FERROUS SULFATE 325MG TAB PO SCH ×2 (08:52→21:28)
[2020-05-27] MEDS: SUCRALFATE 1 GM TAB PO SCH ×4 (08:52→21:28)
[2020-05-27] MEDS: atenoloL 25 MG TAB PO SCH ×2 (08:52→21:00)
[2020-05-27] MEDS: POTASSIUM CHLORIDE 10 MEQ SR TABLET PO SCH (08:53)
[2020-05-27] MEDS: DIGOXIN 0.125 MG TAB PO SCH (08:53)
[2020-05-27] MEDS: APIXABAN 2.5 MG TAB (ELIQUIS) PO SCH ×2 (08:53→21:28)
[2020-05-27] MEDS: FUROSEMIDE 40 MG TAB PO SCH ×2 (08:53→16:59)
[2020-05-27] MEDS: ACETAMINOPHEN TAB 650MG DOSE (2X325MG) PO PRN (09:50)
--- NOTE | 2020-05-27 12:56 | IPNPDOC ---
Text Note Date of Service The patient was seen on 05/27/20. NOTE Subjective: No any events overnight. Pt stated that she is doing better today. No fever or chills. Pt alert, oriented, awake. Her legs are more swollen than before. Her BP is low normal. Objective: Vitals: Noted as below GENERAL APPEARANCE: NAD, sitting up in chair. HEENT: no scleral icterus, EOMI, No icterus, MMM. , Has a abrasion on the head. Bitemporal wasting. CARDIOVASCULAR: irregularly irregular with HR around 100, No Rub/ murmur or gallop LUNGS: diminished lungs sounds bilaterally at the bases. ABDOMEN: soft & not tender w palpitation, bowel sounds normal. Extremities: +2 pitting edema b/l INTEGUMENT: Right supraorbital hematoma NEUROLOGICAL: cranial nerve function from 2-12 intact intact, follows commands, speech not dysarthric Labs and Radiology: reviewed. A/p Pt is 83-year-old woman with chronic atypical atrial flutter, hypertension, glaucoma, vertigo, presented to the hospital after mechanical fall. Pt stated that she fell down during the night and she was on the floor for few hours. She is poor historian. She does not remember what happened before her fall. She denied any seizure like activities. In ER imaging studies was negative for acute fractures, stroke or intracranial bleed. She had bruising on her right forehead and tenderness on the right shoulder and right hip. Pt was found to have profound electrolytes abnormalities, hypokalemia and hypomagnesemia. Also pt was found to have afib with RVR. Also pt was found to have elevated BNP over 4000. admitted for CHF exacerbation. ? Syncope and collapse/ mechanical fall with underlying age related dementia so could not recall how she fell. Most likely Mechanical fall vs vasovagal No any neurological deficit CT head negative Echo from 2019 noted. No significant valvular disease Dementia Pleasant and cooperative Could not remember that she fell thats why her hip hurts. could not remember that she is int [facility]. Atrial Flutter/ Atrial fibrillation with RVR HR controlled Continue Eliquis BP soft will dc metoprolol and start on atenolol low dose and add digoxin for heart rate control Congestive heart failure with Preserved EF BNP >4000 on admission b/l legs swelling +2 Continue Lasix. Is/Os fluid restriction to 1500 cc Hypokalemia/ Hypomagnesemia monitor BMP replaced Fall PT/OT eval Severe protein calorie malnutrition age related BMI of 12 Bitemporal wasting. Dispo: To rehab. DOMINGO,Samira, I+O VSSamira, I+O Laboratory Tests 05/27/20 05:41 Vital Signs Date Time Temp Pulse Resp B/P (MAP) Pulse Ox O2 Delivery O2 Flow Rate FiO2 05/27/20 08:53 109 05/27/20 08:52 120/79 05/27/20 06:00 98.3 16 98 Room Air I&O- Last 24 Hours up to 6 AM 05/27/20 06:00 Intake Total 1730 ml Output Total 0 ml Balance 1730 ml ANGEL YEUNG MD May 27, 2020 12:56
[2020-05-27] MEDS: LATANOPROST 0.005% OPHTH SOLN 2.5 ML OU SCH (21:28)
[2020-05-27 22:00] VITALS: BP_SYST 104; BP_SYST 110; BP_DIAS 65; BP_DIAS 74
[2020-05-28] MEDS: ACETAMINOPHEN TAB 650MG DOSE (2X325MG) PO PRN (03:43)
[2020-05-28 06:00] VITALS: BP 101/54
[2020-05-28 06:03] LABS: HEMATOCRIT 30.3 % (36.0-47.0); HEMOGLOBIN 9.7 g/dl (12.0-15.5); MEAN CORPUSCULAR HEMOGLOBIN 28.4 pg (27.0-33.0); MEAN CORPUSCULAR VOLUME 88.6 fl (80.0-96.0); PLATELET COUNT, AUTOMATED 345 10^3/uL (150-450); RED BLOOD COUNT 3.42 10^6/uL (4.00-5.40); WHITE BLOOD COUNT 5.1 10^3/uL (4.0-10.0)
[2020-05-28 06:27] LABS: CALCIUM LEVEL 8.7 MG/DL (8.8-10.2); GLOMERULAR FILTRATION RATE 56.1 (>32); MAGNESIUM LEVEL 1.7 MG/DL (1.8-2.4); POTASSIUM SERUM 3.5 MEQ/L (3.5-5.1)
[2020-05-28] MEDS ORDERED: KLOR10TA76 PO (07:45)
[2020-05-28] MEDS ORDERED: ELIQ2.5T PO (07:45)
[2020-05-28] MEDS ORDERED: DIGO0.123 PO (07:45)
[2020-05-28] MEDS ORDERED: MAG400TA PO (07:45)
[2020-05-28] MEDS ORDERED: ATEN25TA PO (07:45)
[2020-05-28] MEDS: DIGOXIN 0.125 MG TAB PO SCH (08:40)
[2020-05-28] MEDS: APIXABAN 2.5 MG TAB (ELIQUIS) PO SCH (08:41)
[2020-05-28] MEDS: SUCRALFATE 1 GM TAB PO SCH ×2 (08:41→12:06)
[2020-05-28] MEDS: FUROSEMIDE 40 MG TAB PO SCH (08:41)
[2020-05-28] MEDS: POTASSIUM CHLORIDE 10 MEQ SR TABLET PO SCH (08:41)
[2020-05-28] MEDS: FAMOTIDINE 20 MG TAB PO SCH (08:41)
[2020-05-28 08:42] VITALS: BP 99/62
[2020-05-28] MEDS: atenoloL 25 MG TAB PO SCH (08:42)
[2020-05-28] MEDS: FERROUS SULFATE 325MG TAB PO SCH (08:42)
[2020-05-28] MEDS ORDERED: MAGNESIUM OXIDE 400 MG TAB (MAG-OX) PO SCH (09:00)
[2020-05-28] MEDS ORDERED: FURO40TA2 PO (10:39)
[2020-05-28] MEDS ORDERED: FLUBLOK(EGG FREE)(QUAD)INFLUENZA VACC 0.5ML SYRINGE 18YRS & OLDER IM ONE (12:00)
--- NOTE | 2020-05-28 13:52 | DS.PDOC ---
Discharge Summary General Date of Admission May 22, 2020 at 12:09 Date of Discharge 05/28/20 Discharge Summary PROCEDURES PERFORMED DURING STAY: ECHO: 1. Study is of good technical quality, patient is in atrial fibrillation with controlled rate. 2. Normal LV size with normal LV systolic function. 3. Dilated right ventricle. 4. Severe biatrial enlargement. 5. Aortic sclerosis with no significant stenosis and approximately [id number] aortic insufficiency. 6. At least moderate mitral insufficiency. 7. Severe tricuspid insufficiency. 8. Elevated central venous pressure and at least moderate pulmonary hypertension. DISCHARGE DIAGNOSES: Diastolic CHF exacerbation Severe protein calorie malnutrition Age and malnutrition related muscle weakness and mechanical fall Vasovagal syncope Dementia Atrial fibrillation with RVR. hypokalemia hypomagnesemia Moderate pulmonary hypertension and right heart failure SECONDARY DIAGNOSIS: Chronic atypical atrial flutter, hypertension, glaucoma, vertigo, COMPLICATIONS/CHIEF COMPLAINT: Chf Syncope. HOSPITAL COURSE: Pt is 83-year-old woman with chronic atypical atrial flutter, hypertension, glaucoma, vertigo, presented to the hospital after mechanical fall. Pt stated that she fell down during the night and she was on the floor for few hours. She is poor historian. She does not remember what happened before her fall. She denied any seizure like activities. In ER imaging studies was negative for acute fractures, stroke or intracranial bleed. She had bruising on her right forehead and tenderness on the right shoulder and right hip. Pt was found to have profound electrolytes abnormalities, hypokalemia and hypomagnesemia. Also pt was found to have afib with RVR. Also pt was found to have elevated BNP over 4000. admitted for CHF exacerbation. Syncope and collapse/ mechanical fall with underlying age related dementia so could not recall how she fell. Most likely Mechanical fall vs vasovagal syncope and fall No any neurological deficit CT head negative Echo from 2019 noted. No significant valvular disease Dementia Pleasant and cooperative Could not remember that she fell thats why her hip hurts. could not remember that she is int [facility]. Atrial Flutter/ Atrial fibrillation with RVR HR controlled Continue Eliquis BP soft will dc metoprolol and start on atenolol low dose and add digoxin for heart rate control Congestive heart failure with Preserved EF acute on chronic BNP >4000 on admission b/l legs swelling +2 Continue Lasix. Is/Os fluid restriction to 1500 cc Hypokalemia/ Hypomagnesemia monitor BMP replaced Fall PT/OT Severe protein calorie malnutrition age related BMI of 12 Bitemporal wasting. DISCHARGE MEDICATIONS: Please see below. ALLERGIES: Please see below. PHYSICAL EXAMINATION ON DISCHARGE: VITAL SIGNS: Please see below. GENERAL APPEARANCE: NAD, sitting up in chair. HEENT: no scleral icterus, EOMI, No icterus, MMM. , Has a abrasion on the head. Bitemporal wasting. CARDIOVASCULAR: irregularly irregular with HR around 100, No Rub/ murmur or gallop LUNGS: diminished lungs sounds bilaterally at the bases. ABDOMEN: soft & not tender w palpitation, bowel sounds normal. Extremities: +2 pitting edema b/l INTEGUMENT: Right supraorbital hematoma NEUROLOGICAL: cranial nerve function from 2-12 intact intact, follows commands, speech not dysarthric LABORATORY DATA: Please see below. ACTIVITY: [As tolerated]. DIET: As tolerated, 1500 cc fluid restriction. DISPOSITION: [facility]. ITEMS TO FOLLOWUP ON ON OUTPATIENT: Needs Digoxin level and BMP next week DISCHARGE CONDITION: [Stable]. TIME SPENT ON DISCHARGE: 35 minutes. Vital Signs/I&Os Vital Signs Date Time Temp Pulse Resp B/P (MAP) Pulse Ox O2 Delivery O2 Flow Rate FiO2 05/28/20 08:42 96 99/62 05/28/20 06:00 98.0 18 93 05/27/20 22:00 Room Air I&O- Last 24 Hours up to 6 AM 05/28/20 06:00 Intake Total 420 ml Output Total 650 ml Balance -230 ml Laboratory Data Labs 24H Laboratory Tests 2 05/28/20 05:43: Nucleated Red Blood Cells % (auto) 0.0, Anion Gap 6L, Glomerular Filtration Rate 56.1, Calcium Level 8.7L, Magnesium Level 1.7L CBC/BMP Laboratory Tests 05/28/20 05:43 Microbiology Microbiology 05/22/20 Blood Culture - Final, Complete NO GROWTH AFTER 5 DAYS 05/22/20 Blood Culture - Final, Complete NO GROWTH AFTER 5 DAYS Discharge Medications Scheduled Apixaban (Eliquis) 2.5 Mg Tablet, 2.5 MG PO BID Atenolol (Atenolol) 25 Mg Tablet, 25 MG PO BID Digoxin (Digoxin) 125 Mcg Tablet, 0.125 MG PO DAILY Ergocalciferol (Vitamin D2) (Vitamin D2) 50,000 Units Cap, 50,000 UNITS PO 1XWK, (Reported) SUNDAY Famotidine (Famotidine) 20 Mg Tablet, 20 MG PO BID, (Reported) Ferrous Sulfate (Ferrous Sulfate) 325 Mg Tablet, 325 MG PO BID, (Reported) Furosemide (Furosemide) 40 Mg Tablet, 40 MG PO DAILY Lactose-Reduced Food (Ensure Enlive) 237 Ml Liquid, 120 ML PO BID, (Reported) Magnesium Oxide (Magnesium Oxide) 400 Mg Tablet, 400 MG PO DAILY Potassium Chloride (Klor-Con M10) 10 Meq Tab.er.prt, 10 MEQ PO DAILY Sucralfate (Sucralfate) 1 Gm Tablet, 1 GM PO QID, (Reported) Travoprost (Travatan Z) 50 Drop/2.5 Ml Soln, 1 DROP OU QHS, (Reported) Vancomycin HCl (Firvanq) 50 Mg/1 Ml Soln.recon, 2.5 ML PO QID, (Reported) Scheduled PRN Acetaminophen (Acetaminophen) 325 Mg Tablet, 650 MG PO Q4H PRN for PAIN / FEVER, (Reported) Bisacodyl (Bisacodyl) 10 Mg Supp.rect, [address] DAILY PRN for CONSTIPATION, (Reported) Loperamide HCl (Loperamide) 2 Mg Capsule, 2 MG PO QID PRN for DIARRHEA, (Repo rted) Milk Of Magnesia (Milk of Magnesia) 2,400 Mg/10 Ml Oral.susp, 10 ML PO DAILY PRN for CONSTIPATION, (Reported) Ondansetron HCl (Ondansetron HCl) 4 Mg Tablet, 4 MG PO Q8H PRN for NAUSEA OR VOMITING, (Reported) Allergies Coded Allergies: No Known Allergies (Unverified , 10/06/09) ANGEL YEUNG MD May 28, 2020 13:52
--- NOTE | 2020-05-31 09:34 | ECGEPIP ---
[facility] - ED Test Date: 2020-05-22 Pat Name: CHICO DE LEON Department: Room: [place] [address] Gender: Female Residential Driver: LOLA : 1935 Requested By: Alexis Villavicencio Order Number: [id number] Reading MD: Alexis Villavicencio Measurements Intervals [place] Rate: 128 P: [place]: 0 QRS: 39 QRSD: 94 T: -29 QT: 305 QTc: 446 Interpretive Statements ATRIAL FIBRILLATION WITH RAPID VENTRICULAR RESPONSE WITH ABERRANT CONDUCTION OR VENTRICULAR PREMATURE COMPLEXES LOW QRS VOLTAGE IN EXTREMITY LEADS NONSPECIFIC ST & T-WAVE ABNORMALITY ABNORMAL ECG INTERPRETATION BASED ON A DEFAULT AGE OF 40 YEARS DELAYED R WAVE PROGRESSION NO PRIOR DUE TO DOWNTIME SEE SCANNED DOWNTIME REPORT
--- NOTE | 2020-06-04 07:05 | ECGEPIP ---
[facility] Test Date: 2020-05-23 Pat Name: CHICO DE LEON Department: Room: [place] [address] Gender: Female Research Assistant Member: WATSON : 1935 Requested By: IBIS PENN Order Number: [id number] Reading MD: Medardo Dylon Measurements Intervals [place] Rate: 104 P: [place]: 0 QRS: 89 QRSD: 96 T: 14 QT: 394 QTc: 519 Interpretive Statements ATRIAL FIBRILLATION WITH RAPID VENTRICULAR RESPONSE WITH ABERRANT CONDUCTION OR VENTRICULAR PREMATURE COMPLEXES LOW QRS VOLTAGE IN EXTREMITY LEADS POSSIBLE ANTERIOR MYOCARDIAL INFARCTION, OF INDETERMINATE AGE NON-SPECIFIC ST/T ABNORMALITY NO PRIOR TRACING SEE SCANNED DOWNTIME REPORT
== END 2020-05-28 13:17 | DRG 291 ==
LOC: M ED 07:36 → EDBD 07:36 → M ED INP 12:09 → ENRESERV 14:50 → M PCU 15:59 → M MSPAV 05-25 15:53
PROVIDERS: ADMIT Internal Medicine; ATTEND Internal Medicine Nephrology
DX: I11.0 Hypertensive heart disease with heart failure (principal); I50.31 Acute diastolic (congestive) heart failure; E43 Unspecified severe protein-calorie malnutrition; I48.20 Chronic atrial fibrillation, unspecified; I48.92 Unspecified atrial flutter; E83.42 Hypomagnesemia; R55 Syncope and collapse; E87.6 Hypokalemia; F03.90 Unspecified dementia, unspecified severity, without behavioral disturbance, psychotic disturbance, mood disturbance, and anxiety; I36.0 Nonrheumatic tricuspid (valve) stenosis; I27.20 Pulmonary hypertension, unspecified; H40.9 Unspecified glaucoma; Z79.899 Other long term (current) drug therapy; K21.9 Gastro-esophageal reflux disease without esophagitis; E78.00 Pure hypercholesterolemia, unspecified

== ENCOUNTER → 2020-06-01 | Outpatient (REF) ==
[~2020-06-01] MED LIST changes: +ACET1TAB55 PO; +ATEN25TA PO; +BISA10SU27 PR; +ELIQ2.5T PO; +ENSU1LIQ36 PO; +FAMO20TA PO; +FERR1TAB8 PO; +FIRV50SO PO; +FURO40TA2 PO; +KLOR10TA76 PO; +LOPE2CAP PO; +MAG400TA PO; +METO1TAB87 PO; +MOM30SS PO; +ONDA-83 PO; +SUCR1TAB56 PO; +VITA50005 PO
[2020-06-01 09:00] LABS: BLOOD UREA NITROGEN 17 MG/DL (7-18); CALCIUM LEVEL 8.9 MG/DL (8.8-10.2); CARBON DIOXIDE LEVEL 29 MEQ/L (21-32); CHLORIDE LEVEL 105 MEQ/L (98-107); CREATININE FOR GFR 0.83 MG/DL (0.55-1.30); DIGOXIN LEVEL 1.2 NG/ML (0.5-2.0); GLOMERULAR FILTRATION RATE > 60.0 (>32); GLUCOSE, FASTING 82 MG/DL (70-100); IRON (FE) 45 UG/DL (50-170); MAGNESIUM LEVEL 1.9 MG/DL (1.8-2.4); NT-PRO BNP 2456 PG/ML (<450); POTASSIUM SERUM 4.2 MEQ/L (3.5-5.1); SODIUM LEVEL 140 MEQ/L (136-145)
== END ==
LOC: SKLAB7 07:00
PROVIDERS: ATTEND Internal Medicine
DX: I48.91 Unspecified atrial fibrillation (principal); I50.9 Heart failure, unspecified

== ENCOUNTER → 2020-06-03 | Outpatient (REF) ==
[2020-06-03 09:41] LABS: CALCIUM LEVEL 9.1 MG/DL (8.8-10.2); CREATININE FOR GFR 0.96 MG/DL (0.55-1.30); GLOMERULAR FILTRATION RATE 58.8 (>32); POTASSIUM SERUM 4.8 MEQ/L (3.5-5.1)
== END ==
LOC: SKLAB7 07:00
PROVIDERS: ATTEND Internal Medicine
DX: I50.9 Heart failure, unspecified (principal)

== ENCOUNTER → 2020-06-08 | Outpatient (REF) ==
[2020-06-08 07:50] LABS: CALCIUM LEVEL 8.8 MG/DL (8.8-10.2); GLOMERULAR FILTRATION RATE 56.1 (>32); POTASSIUM SERUM 4.1 MEQ/L (3.5-5.1)
== END ==
LOC: SKLAB3 07:00
PROVIDERS: ATTEND Internal Medicine
DX: I50.9 Heart failure, unspecified (principal)

== ENCOUNTER → 2020-06-10 | Outpatient (REF) | LOC: SKLAB7 12:50 | PROVIDERS: ATTEND Internal Medicine | DX: J06.9 Acute upper respiratory infection, unspecified (principal) ==

== ENCOUNTER → 2020-06-17 | Outpatient (REF) ==
[2020-06-17 09:11] LABS: HEMATOCRIT 38.5 % (36.0-47.0); HEMOGLOBIN 11.6 g/dl (12.0-15.5); MEAN CORPUSCULAR HEMOGLOBIN 28.9 pg (27.0-33.0); MEAN CORPUSCULAR HGB CONC 30.1 g/dl (32.0-36.5); PLATELET COUNT, AUTOMATED 363 10^3/uL (150-450); RED BLOOD COUNT 4.01 10^6/uL (4.00-5.40); WHITE BLOOD COUNT 6.7 10^3/uL (4.0-10.0)
== END ==
LOC: SKLAB7 07:00
PROVIDERS: ATTEND Internal Medicine
DX: I50.9 Heart failure, unspecified (principal)

== ENCOUNTER → 2020-06-25 | Outpatient (REF) ==
[2020-06-25 08:17] LABS: BLOOD UREA NITROGEN 32 MG/DL (7-18); CALCIUM LEVEL 8.8 MG/DL (8.8-10.2); CARBON DIOXIDE LEVEL 28 MEQ/L (21-32); CHLORIDE LEVEL 109 MEQ/L (98-107); GLOMERULAR FILTRATION RATE > 60.0 (>32); GLUCOSE, FASTING 88 MG/DL (70-100); POTASSIUM SERUM 4.1 MEQ/L (3.5-5.1); SODIUM LEVEL 143 MEQ/L (136-145)
== END ==
LOC: SKLAB7 07:00
PROVIDERS: ATTEND Internal Medicine
DX: I50.9 Heart failure, unspecified (principal)

== ENCOUNTER → 2020-07-13 | Outpatient (REF) | payer MEDICARE | LOC: SKLAB7 10:59 | PROVIDERS: ATTEND Internal Medicine | DX: Z51.81 Encounter for therapeutic drug level monitoring (principal); Z79.899 Other long term (current) drug therapy ==

== ENCOUNTER → 2020-07-28 | Outpatient (REF) | payer MEDICARE ==
--- NOTE | 2020-07-28 17:24 | ECGEPIP ---
[facility] Test Date: 2020-07-28 Pat Name: CHICO DE LEON Department: Room: - Gender: Female Director Religious Education: : 1935 Requested By: Maximo Pike Order Number: [id number] Reading MD: Ramon Ribeiro Measurements Intervals [place] Rate: 84 P: CT: 0 QRS: 108 QRSD: 98 T: -30 QT: 351 QTc: 417 Interpretive Statements Atrial fibrillation with controlled ventricular response Right axis deviation Nonspecific repolarization abnormalities Compared to prior tracing of 05/23/2020, QRS complex voltage in all leads is significantly greater Electronically Signed on 07-28-2020 17:24:20 EST by Ramon Ribeiro
== END ==
LOC: SKLAB7 07:00
PROVIDERS: ATTEND Internal Medicine
DX: I48.91 Unspecified atrial fibrillation (principal)

== ENCOUNTER → 2020-07-29 | Outpatient (REF) ==
[2020-07-30 08:20] LABS: INFLUENZA A AMPLIFICATION NEGATIVE (NEGATIVE); INFLUENZA B AMPLIFICATION NEGATIVE (NEGATIVE)
== END ==
LOC: SKLAB7 14:39
PROVIDERS: ATTEND Internal Medicine
DX: Z20.828 Contact with and (suspected) exposure to other viral communicable diseases (principal)

== ENCOUNTER → 2020-08-04 | Outpatient (REF) | payer MEDICARE ==
[~2020-08-04] MED LIST changes: -MAG400TA PO; +MAGN400T35 PO
== END ==
LOC: SKLAB7 08-03 15:36 → EDSTATUS 09-10 12:28
PROVIDERS: ATTEND Internal Medicine
DX: Z20.828 Contact with and (suspected) exposure to other viral communicable diseases (principal)

== ENCOUNTER → 2020-08-05 | Outpatient (REF) | payer MEDICARE ==
[~2020-08-05] MED LIST changes: +MAG400TA PO; -MAGN400T35 PO
[2020-08-05 11:47] LABS: CALCIUM LEVEL 9.2 MG/DL (8.8-10.2); CREATININE FOR GFR 1.22 MG/DL (0.55-1.30); GLOMERULAR FILTRATION RATE 44.6 (>32); MAGNESIUM LEVEL 2.2 MG/DL (1.8-2.4); PHOSPHORUS LEVEL 4.6 MG/DL (2.5-4.9); POTASSIUM SERUM 4.2 MEQ/L (3.5-5.1)
== END ==
LOC: SKLAB7 07:00
PROVIDERS: ATTEND Internal Medicine
DX: N17.9 Acute kidney failure, unspecified (principal)

== ENCOUNTER → 2020-08-11 | Outpatient (REF) | payer MEDICARE ==
[~2020-08-11] MED LIST changes: -MAG400TA PO; +MAGN400T35 PO
== END ==
LOC: SKLAB7 08:00
PROVIDERS: ATTEND Internal Medicine
DX: Z20.828 Contact with and (suspected) exposure to other viral communicable diseases (principal)

== ENCOUNTER → 2020-08-18 | Outpatient (REF) | payer MEDICARE | LOC: SKLAB7 08:00 | PROVIDERS: ATTEND Internal Medicine | DX: Z20.828 Contact with and (suspected) exposure to other viral communicable diseases (principal) ==

== ENCOUNTER → 2020-08-21 | Outpatient (REF) | payer MEDICARE | LOC: SKLAB7 08:00 | PROVIDERS: ATTEND Internal Medicine | DX: Z20.828 Contact with and (suspected) exposure to other viral communicable diseases (principal) ==

== ENCOUNTER → 2020-08-25 | Outpatient (REF) ==
[~2020-08-25] MED LIST changes: +MAG400TA PO; -MAGN400T35 PO
== END ==
LOC: SKLAB7 08:43
PROVIDERS: ATTEND Internal Medicine
DX: Z20.828 Contact with and (suspected) exposure to other viral communicable diseases (principal); Z79.899 Other long term (current) drug therapy

== ENCOUNTER → 2020-09-01 | Outpatient (REF) | payer MEDICARE | LOC: SKLAB7 07:00 | PROVIDERS: ATTEND Internal Medicine | DX: Z20.828 Contact with and (suspected) exposure to other viral communicable diseases (principal) ==

== ENCOUNTER → 2020-09-02 | Outpatient (REF) | payer MEDICARE ==
[2020-09-02 12:16] LABS: HEMATOCRIT 43.5 % (36.0-47.0); HEMOGLOBIN 13.8 g/dl (12.0-15.5); MEAN CORPUSCULAR HEMOGLOBIN 31.8 pg (27.0-33.0); MEAN CORPUSCULAR HGB CONC 31.7 g/dl (32.0-36.5); MEAN CORPUSCULAR VOLUME 100.2 fl (80.0-96.0); PLATELET COUNT, AUTOMATED 235 10^3/uL (150-450); RED BLOOD COUNT 4.34 10^6/uL (4.00-5.40); WHITE BLOOD COUNT 6.1 10^3/uL (4.0-10.0)
[2020-09-02 12:43] LABS: CALCIUM LEVEL 9.3 MG/DL (8.8-10.2); CREATININE FOR GFR 1.2 MG/DL (0.55-1.30); GLOMERULAR FILTRATION RATE 45.5 (>32); POTASSIUM SERUM 4.5 MEQ/L (3.5-5.1)
== END ==
LOC: SKLAB7 11:47
PROVIDERS: ATTEND Internal Medicine
DX: I48.91 Unspecified atrial fibrillation (principal); I11.0 Hypertensive heart disease with heart failure; I50.9 Heart failure, unspecified; Z79.899 Other long term (current) drug therapy

== ENCOUNTER → 2020-09-08 | Outpatient (REF) | payer MEDICARE | LOC: SKLAB7 07:00 | PROVIDERS: ATTEND Internal Medicine | DX: Z20.828 Contact with and (suspected) exposure to other viral communicable diseases (principal) ==

== ENCOUNTER → 2020-09-13 | Outpatient (REF) | payer MEDICARE ==
[2020-09-13 09:51] LABS: CALCIUM LEVEL 9.1 MG/DL (8.8-10.2); CREATININE FOR GFR 0.98 MG/DL (0.55-1.30); GLOMERULAR FILTRATION RATE 57.4 (>32); POTASSIUM SERUM 4.2 MEQ/L (3.5-5.1)
== END ==
LOC: SKLAB7 07:00
PROVIDERS: ATTEND Internal Medicine
DX: R60.9 Edema, unspecified (principal)

== ENCOUNTER → 2020-09-15 | Outpatient (REF) | payer MEDICARE | LOC: SKLAB7 09:07 | PROVIDERS: ATTEND Internal Medicine | DX: Z20.828 Contact with and (suspected) exposure to other viral communicable diseases (principal) ==

== ENCOUNTER → 2020-09-22 | Outpatient (REF) | payer MEDICARE | LOC: SKLAB7 07:00 | PROVIDERS: ATTEND Internal Medicine | DX: Z11.52 Encounter for screening for COVID-19 (principal) ==

== ENCOUNTER → 2020-09-29 | Outpatient (REF) | payer MEDICARE | LOC: SKLAB7 11:03 | PROVIDERS: ATTEND Internal Medicine | DX: Z11.52 Encounter for screening for COVID-19 (principal) ==

== ENCOUNTER → 2020-10-06 | Outpatient (REF) | payer MEDICARE ==
[~2020-10-06] MED LIST changes: -MAG400TA PO; +MAGN400T35 PO
== END ==
LOC: SKLAB7 13:25
PROVIDERS: ATTEND Internal Medicine
DX: Z20.822 Contact with and (suspected) exposure to COVID-19 (principal)

== ENCOUNTER → 2020-10-07 | Outpatient (REF) | payer MEDICARE ==
[2020-10-07 09:09] LABS: HEMATOCRIT 44.7 % (36.0-47.0); HEMOGLOBIN 13.8 g/dl (12.0-15.5); MEAN CORPUSCULAR HGB CONC 30.9 g/dl (32.0-36.5); MEAN CORPUSCULAR VOLUME 103.7 fl (80.0-96.0); PLATELET COUNT, AUTOMATED 217 10^3/uL (150-450); RED BLOOD COUNT 4.31 10^6/uL (4.00-5.40); WHITE BLOOD COUNT 5.7 10^3/uL (4.0-10.0)
[2020-10-07 09:33] LABS: ALBUMIN 3.4 GM/DL (3.2-5.2); BILIRUBIN,TOTAL 0.5 MG/DL (0.2-1.0); CALCIUM LEVEL 9.9 MG/DL (8.8-10.2); CREATININE FOR GFR 1.07 MG/DL (0.55-1.30); GLOMERULAR FILTRATION RATE 51.8 (>32); POTASSIUM SERUM 4.2 MEQ/L (3.5-5.1)
== END ==
LOC: SKLAB7 08:24
PROVIDERS: ATTEND Internal Medicine
DX: I48.91 Unspecified atrial fibrillation (principal); I11.0 Hypertensive heart disease with heart failure; I50.9 Heart failure, unspecified

== ENCOUNTER → 2020-10-13 | Outpatient (REF) | payer MEDICARE | LOC: SKLAB7 10:26 | PROVIDERS: ATTEND Internal Medicine | DX: Z20.822 Contact with and (suspected) exposure to COVID-19 (principal) ==

== ENCOUNTER → 2020-10-20 | Outpatient (REF) | payer MEDICARE ==
[~2020-10-20] MED LIST changes: +MAG400TA PO; -MAGN400T35 PO
== END ==
LOC: SKLAB7 13:58
PROVIDERS: ATTEND Internal Medicine
DX: Z20.822 Contact with and (suspected) exposure to COVID-19 (principal)

== ENCOUNTER → 2020-10-27 | Outpatient (REF) | payer MEDICARE ==
[~2020-10-27] MED LIST changes: -MAG400TA PO; +MAGN400T35 PO
== END ==
LOC: SKLAB7 11:23
PROVIDERS: ATTEND Internal Medicine
DX: Z20.822 Contact with and (suspected) exposure to COVID-19 (principal)

== ENCOUNTER → 2020-11-03 | Outpatient (REF) | payer MEDICARE | LOC: SKLAB7 09:54 | PROVIDERS: ATTEND Internal Medicine | DX: Z20.822 Contact with and (suspected) exposure to COVID-19 (principal) ==

== ENCOUNTER → 2020-11-04 | Outpatient (REF) | payer MEDICARE ==
[2020-11-04 09:21] LABS: HEMATOCRIT 37.4 % (36.0-47.0); HEMOGLOBIN 11.8 g/dl (12.0-15.5); MEAN CORPUSCULAR HEMOGLOBIN 32.5 pg (27.0-33.0); MEAN CORPUSCULAR HGB CONC 31.6 g/dl (32.0-36.5); PLATELET COUNT, AUTOMATED 180 10^3/uL (150-450); RED BLOOD COUNT 3.63 10^6/uL (4.00-5.40)
[2020-11-04 09:52] LABS: CALCIUM LEVEL 9.2 MG/DL (8.8-10.2); POTASSIUM SERUM 4.3 MEQ/L (3.5-5.1)
[2020-11-04 10:47] LABS: TOTAL 25(OH) VITAMIN D 140.7 NG/ML (30.0-100.0)
== END ==
LOC: SKLAB7 08:00
PROVIDERS: ATTEND Internal Medicine
DX: I50.9 Heart failure, unspecified (principal); I11.0 Hypertensive heart disease with heart failure; Z79.899 Other long term (current) drug therapy

== ENCOUNTER → 2020-11-10 | Outpatient (REF) | payer MEDICARE | LOC: SKLAB7 14:42 | PROVIDERS: ATTEND Internal Medicine | DX: Z20.822 Contact with and (suspected) exposure to COVID-19 (principal) ==

== ENCOUNTER → 2020-11-12 | Outpatient (REF) | payer MEDICARE | LOC: SKLAB7 11:50 | PROVIDERS: ATTEND Internal Medicine | DX: Z20.822 Contact with and (suspected) exposure to COVID-19 (principal) ==

== ENCOUNTER → 2020-11-18 | Outpatient (REF) | payer MEDICARE, MEDICAID | LOC: M LAB REF 16:13 | PROVIDERS: ATTEND Nurse Practitioner Adult Health | DX: D50.9 Iron deficiency anemia, unspecified (principal) ==

== ENCOUNTER → 2020-11-24 | Outpatient (REF) | payer MEDICARE, MEDICAID | LOC: SKLAB7 07:00 | PROVIDERS: ATTEND Internal Medicine | DX: Z20.822 Contact with and (suspected) exposure to COVID-19 (principal); Z53.9 Procedure and treatment not carried out, unspecified reason ==

== ENCOUNTER → 2021-02-23 | Outpatient (REF) | payer MEDICARE, MEDICAID | LOC: M LAB REF 16:17 | PROVIDERS: ATTEND Nurse Practitioner Adult Health | DX: I48.0 Paroxysmal atrial fibrillation (principal) ==

== ENCOUNTER 2021-05-16 14:38 | Inpatient (IN) | payer MEDICARE, MEDICAID ==
[~2021-05-16] VITALS: Ht 157.5 cm; Wt 48.7 kg
[~2021-05-16 14:38] MED LIST changes: +ERGO500029 PO; -VITA50005 PO
[2021-05-16 16:58] LABS: BASO % 0.4 % (0.0-1.0); EOS # 0.2 10^3/uL (0.0-0.5); EOS % 2.4 % (0.0-3.0); HEMATOCRIT 41.6 % (36.0-47.0); LYMPH # 1.1 10^3/uL (1.5-5.0); LYMPH % 16.1 % (24.0-44.0); MEAN CORPUSCULAR HEMOGLOBIN 33.1 pg (27.0-33.0); MEAN CORPUSCULAR HGB CONC 33.7 g/dl (32.0-36.5); MEAN CORPUSCULAR VOLUME 98.3 fl (80.0-96.0); MONO # 0.8 10^3/uL (0.0-0.8); MONO % 11.9 % (2.0-8.0); NEUTROPHILS # 4.7 10^3/uL (1.5-8.5); NEUTROPHILS % 68.5 % (36.0-66.0); PLATELET COUNT, AUTOMATED 248 10^3/uL (150-450); RED BLOOD COUNT 4.23 10^6/uL (4.00-5.40); WHITE BLOOD COUNT 6.8 10^3/uL (4.0-10.0)
[2021-05-16 17:19] LABS: CREATININE FOR GFR 0.99 MG/DL (0.55-1.30); GLOMERULAR FILTRATION RATE 56.6 (>32); POTASSIUM SERUM 4.2 MEQ/L (3.5-5.1)
--- NOTE | 2021-05-16 17:58 | REPVR ---
PROCEDURE INFORMATION: Exam: CT Abdomen And Pelvis Without Contrast Exam date and time: 05/16/2021 5:27 PM Age: 85 years old Clinical indication: Abdominal pain; Additional info: Rule out nephrolithiasis TECHNIQUE: Imaging protocol: Computed tomography of the abdomen and pelvis without contrast. Radiation optimization: All CT scans at this facility use at least one of these dose optimization techniques: automated exposure control; mA and/or kV adjustment per patient size (includes targeted exams where dose is matched to clinical indication); or iterative reconstruction. COMPARISON: CT ABD/PEL W/IV CONTRAST ONLY 05/22/2020 10:51 AM FINDINGS: Lungs: No suspicious mass or airspace process in the visualized lung bases. Heart: Multi-chamber cardiac dilatation is noted. Liver: Noncontrast liver shows no obvious lesion. Gallbladder and bile ducts: Gallstones are present in the gallbladder lumen. No adjacent fluid or duct dilatation. Pancreas: Noncontrast pancreas shows no obvious mass or adjacent fluid. Spleen: Noncontrast spleen shows no obvious focal deformity. Adrenal glands: Adrenal glands are normal in appearance. Kidneys and ureters: Kidneys show no stone or hydronephrosis. Stomach and bowel: No evidence of small bowel obstruction. No evidence of acute diverticulitis. Appendix: Appendix is not seen. No RLQ inflammation to suggest appendicitis. Intraperitoneal space: No pneumoperitoneum. Vasculature: Atherosclerotic change present in the aorta, without aneurysm. Lymph nodes: No enlarged lymph nodes. Urinary bladder: Urinary bladder appears normal. Reproductive: Uterus is surgically absent. Bones/joints: Degenerative changes are seen in the lumbar spine with disc height loss, endplate osteophytes and hypertrophic facet arthropathy. Soft tissues: Unremarkable. Exam limitations: Limited evaluation without enteric or IV contrast. Exam is limited due to patient motion. Surgical anastomoses in the left lower quadrant show no obstruction or dehiscence. IMPRESSION: 1. No evidence of obstructive uropathy. 2. No concerning bowel abnormality on this limited noncontrast exam. 3. Cholelithiasis without evidence of biliary obstruction Electronically signed by: Jorge Mack On 05/16/2021 17:58:08 PM
[2021-05-16] MEDS ORDERED: KETOROLAC 30 MG/ML 1ML VIAL IV ONE (18:25)
[2021-05-16 18:59] LABS: FREE T4 1.44 NG/DL (0.76-1.46); THYROID STIMULATING HORMONE 1.55 uIU/ML (0.358-3.740)
[2021-05-16 19:06] LABS: CREATININE,RANDOM URINE 21.6 MG/DL
--- NOTE | 2021-05-16 20:29 | REPVR ---
PROCEDURE INFORMATION: Exam: XR Lumbosacral Spine Exam date and time: 05/16/2021 7:50 PM Age: 85 years old Clinical indication: Low back pain; Additional info: Low back pain, recent b changes TECHNIQUE: Imaging protocol: XR of the lumbosacral spine. Views: 4 or 5 views. COMPARISON: CT ABD PELVIS W/O CONTRAST 05/16/2021 5:25 PM FINDINGS: Bones/joints: No segmental vertebral malalignment. Vertebral body height and morphology are maintained. No acute fracture or concerning osseous lesion. Mild degenerative facet and degenerative disc changes at multiple levels with no evidence of an acute fracture or destructive process. SI joints and sacral arcuate lines appear normal. Bones appear diffusely demineralized. Soft tissues: No focal soft tissue abnormality. IMPRESSION: 1. No acute process. 2. Skeletal demineralization and mild multilevel degenerative disc and facet arthropathy Electronically signed by: Jorge Mack On 05/16/2021 20:29:34 PM
[2021-05-16 20:43] LABS: FREE T4 1.51 NG/DL (0.76-1.46); THYROID STIMULATING HORMONE 1.72 uIU/ML (0.358-3.740)
[2021-05-16] MEDS ORDERED: traMADol 50 MG TAB PO PRN (20:55)
[2021-05-16] MEDS ORDERED: LIDOCAINE 5% (LIDODERM) PATCH TD SCH (20:55)
[2021-05-16] MEDS ORDERED: ATRO1OPD OS (20:57)
[2021-05-16] MEDS ORDERED: HM S0.65 NARES (20:57)
[2021-05-16] MEDS ORDERED: RHOP0.02 OS (20:57)
[2021-05-16] MEDS ORDERED: BENG1CRE TOP (20:57)
[2021-05-16] MEDS ORDERED: LIDO1PAD TOP (20:57)
[2021-05-16] MEDS ORDERED: ELIQ2.5T PO (20:57)
[2021-05-16] MEDS ORDERED: REFR0.5D8 OU (20:57)
[2021-05-16] MEDS ORDERED: COSO1SOL3 OU (20:57)
[2021-05-16] MEDS ORDERED: MAGN400T2 PO (20:57)
[2021-05-16] MEDS ORDERED: POTA10TA17 PO (20:57)
[2021-05-16] MEDS ORDERED: ALPH0.156 OU (20:57)
[2021-05-16] MEDS ORDERED: DIGO0.123 PO (20:57)
[2021-05-16] MEDS ORDERED: TRAV04OPD OU (20:57)
[2021-05-16] MEDS ORDERED: ATEN25TA PO (20:57)
[2021-05-16] MEDS ORDERED: FURO40TA2 PO (20:57)
[2021-05-16] MEDS ORDERED: VITMTA PO (20:57)
[2021-05-16] MEDS ORDERED: **NOTE PATIENT COMMENT** MISC XX SCH (21:00)
[2021-05-16] MEDS: COSOPT OCUMETER PLUS 10ML (DORZOLAMIDE/TIMOLOL) OU SCH (21:00)
[2021-05-16] MEDS ORDERED: HOME MED LIST COMPLETE! XX SCH (21:00)
[2021-05-16] MEDS ORDERED: SODIUM CHLORIDE NASAL 0.65% SPRAY BTL (OCEAN) PRN (21:05)
--- NOTE | 2021-05-16 21:14 | HPEPDOC ---
General Date of Admission 05/16/21 Date of Service: May 16, 2021 Chief Complaint The patient is a 85-year-old female admitted with a reason for visit of back Pain. Source: Patient History of Present Illness Morenita Barboza is an 85-year-old female with significant history of diastolic heart failure, colon cancer, A. fib on Eliquis twice a day, GERD, HDL, dementia, CKD and PVD. Patient reports that [address] [facility] she noted while she was sitting that she had some low back pain. The pain persisted and she decided to go to her PCP and received prescription for lidocaine and BenGay but reports that this did not help. Patient describes that the pain is aching 8 out of 10. She does endorse some relief from Toradol shot in ED. Patient describes no recent trauma, but did report a history of a fall over a year ago. She denies spinal history but she is somewhat a poor historian given the dementia. Of note, records review show in 2016 patient had thoracic x-ray completed with degenerative changes and compression fractures. Patient denies any numbness or tingling. She reports that she typically at baseline walks with a walker. She does endorse feelings of positional lightheadedness and generalized weakness. She is not presently doing physical therapy and does endorse a sensation of deconditioning. Patient denies issues with bladder emptying -does endorse frequency, but she attributes this to her Lasix. She does report that she is having intermittent constipation. Additionally, she describes the pain of her low back going around her pelvic region/abdomen. Pt denies fever/chills, [place], sinus congestion, sore throat, productive cough, sob, palpitations, chest pain, n/v/d, sensory changes or syncope. CT abdomen pelvis completed nonacute, but did show gallstone. Lumbar x-ray pending. Of note, initial lab work does reveal a low sodium at 125. UA nonacute. Ur sodium 21, serum osmo low at 263. LFTs pending. Patient will be admitted for further evaluation management presenting concerns. Home Medications Scheduled Apixaban (Eliquis) 2.5 Mg Tablet, 2.5 MG PO BID, (Reported) Atenolol (Atenolol) 25 Mg Tablet, 25 MG PO BID, (Reported) Atropine Sulfate (Atropine Sulfate) 1% 2ML Drops, 1 DROP OS BID, (Reported) 0900, 1700 Brimonidine Tartrate (Alphagan P) 0.15% 5ML Drops, 1 DROP OU BID, (Reported) 0900, 1700 Carboxymethylcellulose Sodium (Refresh Tears) 15 Ml Drops, 2 DROP OU BID, (Reported) Digoxin (Digoxin) 125 Mcg Tablet, 125 MCG PO 5XW, (Reported) MON, TUES, WED, , FRI Dorzolamide HCl/Timolol Maleat (Cosopt Eye Drops) 10 Ml Drops, 1 DROP OU BID, (Reported) Famotidine (Famotidine) 20 Mg Tablet, 20 MG PO BID, (Reported) Ferrous Sulfate (Ferrous Sulfate) 325 Mg Tablet, 325 MG PO BID, (Reported) Furosemide (Furosemide) 40 Mg Tablet, 40 MG PO DAILY, (Reported) Lactose-Reduced Food (Ensure Enlive) 237 Ml Liquid, 237 ML PO QID, (Reported) 0800, 1200, 1600, 2000 Lidocaine (Lidocaine) 5% Adh..patch, 1 PATCH TOP DAILY, (Reported) APPLY TO LOWER BACK Magnesium Oxide (Magnesium Oxide) 400 Mg Tablet, 400 MG PO QHS, (Reported) Methyl Salicylate/Menth/Camph (Bengay Ultra Strength Cream) 57 Gm Cream..g., 1 APPLIC TOP QHS, (Reported) APPLY AFTER REMOVING LIDOCAINE PATCH FROM LOWER BACK Multivitamins (Thera M Plus Tablet) 1 Each Tablet, 1 TAB PO DAILY, (Reported) Netarsudil Mesylate (Rhopressa) 2.5 Ml Drops, 1 DROP OS QHS, (Reported) Potassium Chloride (Potassium Chloride) 10 Meq Tab.er.prt, 10 MEQ PO DAILY, (Reported) Sucralfate (Sucralfate) 1 Gm Tablet, 1 GM PO BID, (Reported) 0600, 1500 Travoprost (Travatan Z) 0.004% 2.5ML Drops, 1 DROP OU QHS, (Reported) Scheduled PRN Acetaminophen (Acetaminophen) 325 Mg Tablet, 650 MG PO Q4H PRN for PAIN / FEVER, (Reported) Milk Of Magnesia (Milk of Magnesia) 2,400 Mg/10 Ml Oral.susp, 10 ML PO DAILY PRN for CONSTIPATION, (Reported) Ondansetron HCl (Ondansetron HCl) 4 Mg Tablet, 4 MG PO Q8H PRN for NAUSEA OR VO MITING, (Reported) Sodium Chloride (Saline Nasal [place]) 44 Ml [place], 1 SPRAY NARES Q4H PRN for NASAL CONGESTION, (Reported) Allergies Coded Allergies: No Known Allergies (Unverified , 10/06/09) Past Medical History Medical History diastolic heart failure, colon cancer, A. fib on Eliquis twice a day, GERD, anemia, HDL, dementia, CKD and PVD Surgical History Colon cancer resection, hysterectomy, tonsillectomy Family History Significant Family History: Heart disease Parents -heart disease, sisterdiabetes Social History * Smoker: Denies Alcohol: Denies Recent Travel/Sick Contacts: Denies: Recent travel, Recent sick contacts Psychosocial History: No pertinent psych hx Resides at [facility] A-FIB/[facility] A-FIB History Current/History of A-Fib/PAF?: Yes Current PO Anticoag Therapy: Yes Review of Systems Constitutional: Reports: Weakness, Fatigue; Denies: Chills, Fever, Night Sweats Eyes: Denies: Pain, Vision change ENT: Denies: Head Aches, Ear Pain, Dysphagia Skin: Denies: Rash, Lesions, Breakdown Pulmonary: Denies: Dyspnea, Cough Cardiovascular: Denies: Chest Pain, Palpitations, Orthopnea, Paroxysmal Noc. Dyspnea, Lt Headedness Gastrointestinal: Denies: Nausea, Vomiting, Abdominal Pain, Diarrhea Genitourinary: Denies: Dysuria, Frequency, Incontinence, Retention Hematologic: Denies: Bruising, Bleeding Excessively Musculoskeletal: Reports: Back Pain; Denies: Neck Pain, Joint Pain, Muscle Pain, Spasms Neurological: Denies: Weakness, Numbness, Change in speech, Confusion Psych: Reports: Mood Normal; Denies: Depression, Memory Issues Physical Examination General Exam: Positive: Alert, Cooperative, No Acute Distress Eye Exam: Positive: PERRLA, Conjunctiva & lids normal, EOMI; Negative: Sclera icteric ENT Exam: Positive: Atraumatic, Mucous membr. moist/pink, Pharynx Normal Neck Exam: Positive: Supple; Negative: JVD, thyromegaly Chest Exam: Positive: Clear to auscultation, Normal air movement Heart Exam: Positive: Rate Normal, Irregular Rhythm, Normal S1, Normal S2; Negative: Murmurs, Rubs Telemetry: Positive: Atrial fibrillation Abdomen Exam: Positive: Normal bowel sounds, Soft; Negative: Tenderness, Hepatospenomegaly Extremity Exam: Positive: Normal pulses, Other (+ Kyphosis); Negative: Clubbing, Cyanosis, Edema, Tenderness, Swelling Skin Exam: Positive: Nl turgor and temperature; Negative: Breakdown, Lesion Neuro Exam: Positive: Normal Gait, Normal Speech, Cranial Nerves 3-12 NL, Reflexes 2+ Psych Exam: Positive: Mental status NL, Mood NL, Oriented x 3; Negative: Memory Intact (Cognitive slowing, poor historian) Vital Signs Vital Signs Date Time Temp Pulse Resp B/P (MAP) Pulse Ox O2 Delivery O2 Flow Rate FiO2 05/16/21 20:02 85 16 163/95 (117) 99 Room Air 05/16/21 15:19 98.0 Laboratory Data Labs 24H Laboratory Tests 2 05/16/21 16:39: Immature Granulocyte % (Auto) 0.7, Neutrophils (%) (Auto) 68.5H, Lymphocytes (%) (Auto) 16.1L, Monocytes (%) (Auto) 11.9H, Eosinophils (%) (Auto) 2.4, Basophils (%) (Auto) 0.4, Neutrophils # (Auto) 4.7, Lymphocytes # (Auto) 1.1L, Monocytes # (Auto) 0.8, Eosinophils # (Auto) 0.2, Basophils # (Auto) 0.0, Nucleated Red Blood Cells % (auto) 0.0, Urine Color YELLOW, Urine Appearance CLEAR, Urine pH 7.0, Urine Specific [place] 1.004, Urine Protein NEGATIVE, Urine Glucose (UA) NEGATIVE, Urine Ketones TRACEH, Urine Blood NEGATIVE, Urine Nitrite NEGATIVE, Urine Bilirubin NEGATIVE, Urine Urobilinogen 0.2, Urine Leukocyte Esterase TRACEH, Urine WBC (Auto) 0, Urine RBC (Auto) 0, Urine Hyaline Casts (Auto) 0, Urine Bacteria (Auto) NEGATIVE, Urine Squamous Epithelial Cells 0, Urine Sperm (Auto) , Urine Osmolality 170, Urine Random Creatinine 21.6, Urine Random Sodium 21, Anion Gap 8, Glomerular Filtration Rate 56.6, Osmolality 263L, Calcium Level 9.0, Thyroid Stimulating Hormone (TSH) 1.550, Free Thyroxine 1.44 05/16/21 19:57: Osmolality 271L, Thyroid Stimulating Hormone (TSH) 1.720, Free Thyroxine 1.51H CBC/BMP Laboratory Tests 05/16/21 16:39 Microbiology Microbiology 05/16/21 Urine Culture, Received Pending RAD Interpretation STUDY: Lumbar x-ray Rad Actions: Report Reviewed STUDY: CT abdomen pelvis Rad Actions: Report Reviewed Assessment/Plan 1. Symptomatic Hyponatremia: Sodium 125. Urine Na 21, serum Osmo 263. In setting of Lasix and digoxin use. Of record review, patient has had sodium 132/134 at points but never in the 120s. -Monitor urine output, Is and Os -Hold diuretics -Check digoxin level -Gentle hydration, serial BMP, caution for overcorrection, but also consideration for fluid balance given diastolic heart failure. -A.m. lab -Consider differentials and consider nephrology consult pending course 2. Back pain secondary to DDD: -Xray nonacute -Symptom management/supportive care for pain control 3. A. fib: Rate controlled, telemetry, continue OAC 4. Diastolic heart failure: Patient does not appear hypervolemic. -Check BNP. As noted above, monitor fluid balance. Hold diuretics. 5. GERD: Continue Protonix 6. History of anemia: Hemoglobin robust at 14 7. Dementia: Encourage expression and reorient/redirect as needed. Continue home medications once reconciled. 8. Deconditioning: Patient reports losing weight and working towards "getting it back on". Patient does endorse weakness which may be related to symptomatic hyponatremia versus generalized deconditioning. Plan for PT/OT. DVT: Continue Eliquis CODE STATUS: DNR/DNI, has MOLST form Dispo planning: Back to [facility] once electrolytes stable Plan / VTE VTE Prophylaxis Ordered?: Yes BRISEIDA WILSON NP May 16, 2021 21:14
[2021-05-16] MEDS: NS 1,000 ML IV SCH (21:54)
[2021-05-16] MEDS: DOCUSATE SODIUM 100MG CAPSULE PO SCH (21:57)
[2021-05-16] MEDS: APIXABAN 2.5 MG TAB (ELIQUIS) PO SCH (21:58)
[2021-05-16] MEDS: FAMOTIDINE 20 MG TAB PO SCH (21:58)
[2021-05-16] MEDS: FERROUS SULFATE 325MG TAB PO SCH (21:58)
[2021-05-16] MEDS: atenoloL 25 MG TAB PO SCH (21:58)
[2021-05-16 22:05] LABS: ALBUMIN 3.2 GM/DL (3.2-5.2); BILIRUBIN,DIRECT 0.2 MG/DL (0.0-0.2); BILIRUBIN,TOTAL 0.7 MG/DL (0.2-1.0); CREATININE FOR GFR 0.97 MG/DL (0.55-1.30); MAGNESIUM LEVEL 2.2 MG/DL (1.8-2.4); POTASSIUM SERUM 4.5 MEQ/L (3.5-5.1); TOTAL PROTEIN 6.8 GM/DL (6.4-8.2)
[2021-05-16 23:24] LABS: RSV AMPLIFICATION NEGATIVE (NEGATIVE)
[2021-05-17 00:32] VITALS: BP 148/82
[2021-05-17 01:43] LABS: CALCIUM LEVEL 9.1 MG/DL (8.8-10.2); CREATININE FOR GFR 0.98 MG/DL (0.55-1.30); GLOMERULAR FILTRATION RATE 57.3 (>32); POTASSIUM SERUM 4.6 MEQ/L (3.5-5.1)
[2021-05-17] MEDS: SUCRALFATE 1 GM TAB PO SCH ×2 (05:03→14:43)
[2021-05-17 05:55] LABS: BASO # 0.1 10^3/uL (0.0-0.2); BASO % 0.9 % (0.0-1.0); EOS # 0.3 10^3/uL (0.0-0.5); EOS % 4.4 % (0.0-3.0); HEMATOCRIT 36.5 % (36.0-47.0); HEMOGLOBIN 12.2 g/dl (12.0-15.5); LYMPH # 0.9 10^3/uL (1.5-5.0); LYMPH % 13.2 % (24.0-44.0); MEAN CORPUSCULAR HGB CONC 33.4 g/dl (32.0-36.5); MEAN CORPUSCULAR VOLUME 98.6 fl (80.0-96.0); MONO # 0.9 10^3/uL (0.0-0.8); MONO % 13.4 % (2.0-8.0); NEUTROPHILS # 4.5 10^3/uL (1.5-8.5); NEUTROPHILS % 67.8 % (36.0-66.0); PLATELET COUNT, AUTOMATED 218 10^3/uL (150-450); WHITE BLOOD COUNT 6.7 10^3/uL (4.0-10.0)
[2021-05-17 06:00] VITALS: BP 132/71
[2021-05-17 06:26] LABS: BLOOD UREA NITROGEN 18 MG/DL (7-18); CALCIUM LEVEL 8.4 MG/DL (8.8-10.2); CARBON DIOXIDE LEVEL 27 MEQ/L (21-32); CHLORIDE LEVEL 98 MEQ/L (98-107); CREATININE FOR GFR 0.84 MG/DL (0.55-1.30); GLOMERULAR FILTRATION RATE > 60.0 (>32); GLUCOSE, FASTING 87 MG/DL (70-100); POTASSIUM SERUM 4.2 MEQ/L (3.5-5.1); SODIUM LEVEL 131 MEQ/L (136-145)
[2021-05-17] MEDS: **NOTE PATIENT COMMENT** MISC XX SCH (09:00)
[2021-05-17 09:21] LABS: BLOOD UREA NITROGEN 17 MG/DL (7-18); CALCIUM LEVEL 8.4 MG/DL (8.8-10.2); CARBON DIOXIDE LEVEL 26 MEQ/L (21-32); CHLORIDE LEVEL 100 MEQ/L (98-107); CREATININE FOR GFR 0.84 MG/DL (0.55-1.30); GLOMERULAR FILTRATION RATE > 60.0 (>32); GLUCOSE, FASTING 87 MG/DL (70-100); POTASSIUM SERUM 4.2 MEQ/L (3.5-5.1); SODIUM LEVEL 132 MEQ/L (136-145)
[2021-05-17] MEDS: BRIMONIDINE 0.15% OPHTH SOLN 5 ML OU SCH ×2 (10:14→17:22)
[2021-05-17] MEDS: FAMOTIDINE 20 MG TAB PO SCH ×2 (10:15→20:28)
[2021-05-17] MEDS: MULTIVITAMINS/MINERALS THERAP 1 TAB PO SCH (10:15)
[2021-05-17] MEDS: DOCUSATE SODIUM 100MG CAPSULE PO SCH ×2 (10:15→20:28)
[2021-05-17] MEDS: FERROUS SULFATE 325MG TAB PO SCH ×2 (10:16→20:28)
[2021-05-17] MEDS: APIXABAN 2.5 MG TAB (ELIQUIS) PO SCH ×2 (10:16→20:28)
[2021-05-17] MEDS: atenoloL 25 MG TAB PO SCH ×2 (10:16→21:41)
[2021-05-17] MEDS: COSOPT OCUMETER PLUS 10ML (DORZOLAMIDE/TIMOLOL) OU SCH (10:19)
[2021-05-17] MEDS: NS 1,000 ML IV SCH (10:20)
[2021-05-17] MEDS: ATROPINE SULFATE 1% OP SOLN 2 ML BTL OS SCH ×2 (10:24→17:26)
[2021-05-17 13:19] LABS: BLOOD UREA NITROGEN 19 MG/DL (7-18); CALCIUM LEVEL 8.1 MG/DL (8.8-10.2); CARBON DIOXIDE LEVEL 27 MEQ/L (21-32); CHLORIDE LEVEL 99 MEQ/L (98-107); CREATININE FOR GFR 0.89 MG/DL (0.55-1.30); GLOMERULAR FILTRATION RATE > 60.0 (>32); GLUCOSE, FASTING 112 MG/DL (70-100); SODIUM LEVEL 132 MEQ/L (136-145)
[2021-05-17 14:00] VITALS: BP 133/82
[2021-05-17] MEDS: ACETAMINOPHEN TAB 650MG DOSE (2X325MG) PO PRN (14:44)
--- NOTE | 2021-05-17 15:39 | IPNPDOC ---
Date Seen The patient was seen on 05/17/21. Progress Note SUBJECTIVE: Patient was seen and examined. She is doing well. No acute events overnight. This morning she was reported to have bradycardia when while working with physical therapy. She states that her back pain has improved. Sodium has been improving to 132. Patient denies any palpitations shortness of breath chest pain nausea vomiting diarrhea fevers or chills. She denies any urinary i ncontinence or retention. She states that she had a bowel movement this morning which caused her significant relief in terms of abdominal discomfort. OBJECTIVE PHYSICAL EXAMINATION: VITAL SIGNS: please see below General: NAD, comfortable HEENT: PERRLA, EOMI, sclerae clear Neck: supple, normal ROM, no JVD Respiratory: lungs CTAB, no wheeze, no rales, no crackles CVS: RRR, normal S1, S2, no murmurs Abdo: soft, no masses, no hepatosplenomegaly, BS+, no rebound tenderness Extremities: no edema, pulses 2+ MSK: no joint deformities, normal ROM Neuro: no focal neuro deficits, moving all 4 extremities, CN2-12 intact. Strength 5/5 in all 4 extremities. No nystagmus. Psych: calm, cooperative, AAO x 3 LABORATORY DATA, IMAGING STUDIES, MICROBIOLOGY: Please see below. Echocardiogram from 05/22/2020: 1. Study is of good technical quality, patient is in atrial fibrillation with controlled rate. 2. Normal LV size with normal LV systolic function. 3. Dilated right ventricle. 4. Severe biatrial enlargement. 5. Aortic sclerosis with no significant stenosis and approximately [id number]-lzfrejuv aortic insufficiency. 6. At least moderate mitral insufficiency. 7. Severe tricuspid insufficiency. 8. Elevated central venous pressure and at least moderate pulmonary hy pertension. DVT prophylaxis ordered?: Patient is on Eliquis 2.5 mg twice daily ASSESSMENT AND PLAN: Patient is an 85-year-old female with a past medical history of diastolic CHF, A. fib on Eliquis, colon cancer, GERD, hyperlipidemia, dementia, CKD, and peripheral vascular disease.. She is a resident of [facility]. Presented to the ER with low back pain without a prior history of trauma. Found to be constipated with relief in symptoms after having a bowel movement. Patient was found to have a sodium of 125 on admission. But it has been improving with IVF. 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 Atrial fibrillation - AC with eliquis 2.5 mg BID - takes atenolol 25 mg BID - bradycardia this morning to 40 - hold atenolol x 24 hours - also takes timolol eye drops for glaucoma, DC Diastolic CHF - appears to be euvolemic at thist mukund - BNP elevated, however shows no edema, no crackles on auscultation - will DC IVF GERD - c/w PPI Dementia - AAO x 3 Dispo: pending medical clearance. VS, I&O, 24H, Fishbone Vital Signs/I&O Vital Signs Date Time Temp Pulse Resp B/P (MAP) Pulse Ox O2 Delivery O2 Flow Rate FiO2 05/17/21 14:00 98.3 80 16 133/82 (99) 96 Room Air I&O- Last 24 Hours up to 6 AM 05/17/21 06:00 Intake Total 600 ml Output Total 0 ml Balance 600 ml Laboratory Data 24H LABS Laboratory Tests 2 05/16/21 16:39: Immature Granulocyte % (Auto) 0.7, Neutrophils (%) (Auto) 68.5H, Lymphocytes (%) (Auto) 16.1L, Monocytes (%) (Auto) 11.9H, Eosinophils (%) (Auto) 2.4, Basophils (%) (Auto) 0.4, Neutrophils # (Auto) 4.7, Lymphocytes # (Auto) 1.1L, Monocytes # (Auto) 0.8, Eosinophils # (Auto) 0.2, Basophils # (Auto) 0.0, Nucleated Red Blood Cells % (auto) 0.0, Urine Color YELLOW, Urine Appearance CLEAR, Urine pH 7.0, Urine Specific [place] 1.004, Urine Protein NEGATIVE, Urine Glucose (UA) NEGATIVE, Urine Ketones TRACEH, Urine Blood NEGATIVE, Urine Nitrite NEGATIVE, Urine Bilirubin NEGATIVE, Urine Urobilinogen 0.2, Urine Leukocyte Esterase TRACEH, Urine WBC (Auto) 0, Urine RBC (Auto) 0, Urine Hyaline Casts (Auto) 0, Urine Bacteria (Auto) NEGATIVE, Urine Squamous Epithelial Cells 0, Urine Sperm (Auto) , Urine Osmolality 170, Urine Random Creatinine 21.6, Urine Random Sodium 21, Anion Gap 8, Glomerular Filtration Rate 56.6, Osmolality 263L, Calcium Level 9.0, Thyroid Stimulating Hormone (TSH) 1.550, Free Thyroxine 1.44 05/16/21 19:57: Anion Gap 8, Glomerular Filtration Rate 58.0, Osmolality 271L, Calcium Level 9.0, Thyroid Stimulating Hormone (TSH) 1.720, Free Thyroxine 1.51H, Magnesium Level 2.2, Total Bilirubin 0.7, Direct Bilirubin 0.2, Aspartate Amino Transf (AST/SGOT) 28, Alanine Aminotransferase (ALT/SGPT) 26, Alkaline Phosphatase 76, EJ-Ldv-X-Type Natriuretic Peptide 5610H, Total Protein 6.8, Albumin 3.2, Albumin/Globulin Ratio 0.9L, Digoxin Level 1.0 05/16/21 22:26: Coronavirus (COVID-19)(PCR) NEGATIVE, Influenza Type A (RT-PCR) NEGATIVE, Influenza Type B (RT-PCR) NEGATIVE, Respiratory Syncytial Virus (PCR) NEGATIVE 05/17/21 01:08: Anion Gap 5L, Glomerular Filtration Rate 57.3, Calcium Level 9.1 05/17/21 05:33: Immature Granulocyte % (Auto) 0.3, Neutrophils (%) (Auto) 67.8H, Lymphocytes (%) (Auto) 13.2L, Monocytes (%) (Auto) 13.4H, Eosinophils (%) (Auto) 4.4H, Basophils (%) (Auto) 0.9, Neutrophils # (Auto) 4.5, Lymphocytes # (Auto) 0.9L, Monocytes # (Auto) 0.9H, Eosinophils # (Auto) 0.3, Basophils # (Auto) 0.1, Nucleated Red Blood Cells % (auto) 0.0, Anion Gap 6L, Glomerular Filtration Rate > 60.0, Calcium Level 8.4L 05/17/21 08:43: Anion Gap 6L, Glomerular Filtration Rate > 60.0, Calcium Level 8.4L 05/17/21 12:39: Anion Gap 6L, Glomerular Filtration Rate > 60.0, Calcium Level 8.1L CBC/BMP Laboratory Tests 05/16/21 16:39 05/16/21 19:57 05/17/21 01:08 05/17/21 05:33 05/17/21 08:43 05/17/21 12:39 Microbiology Microbiology 05/16/21 Urine Culture, Received Pending AGATHA PLASENCIA MD May 17, 2021 15:39
[2021-05-17] MEDS: SODIUM CHLORIDE 1 GM TAB PO SCH (17:22)
[2021-05-17 17:46] LABS: BLOOD UREA NITROGEN 22 MG/DL (7-18); CALCIUM LEVEL 8.4 MG/DL (8.8-10.2); CARBON DIOXIDE LEVEL 25 MEQ/L (21-32); CHLORIDE LEVEL 99 MEQ/L (98-107); CREATININE FOR GFR 0.93 MG/DL (0.55-1.30); GLOMERULAR FILTRATION RATE > 60.0 (>32); GLUCOSE, FASTING 98 MG/DL (70-100); POTASSIUM SERUM 4.2 MEQ/L (3.5-5.1); SODIUM LEVEL 130 MEQ/L (136-145)
[2021-05-17] MEDS: LATANOPROST 0.005% OPHTH SOLN 2.5 ML OU SCH (20:28)
[2021-05-17] MEDS: LIDOCAINE 5% (LIDODERM) PATCH TD SCH (20:28)
[2021-05-17] MEDS ORDERED: LIDOCAINE 5% (LIDODERM) PATCH TD SCH (21:00)
[2021-05-17 21:41] LABS: CALCIUM LEVEL 8.2 MG/DL (8.8-10.2); CREATININE FOR GFR 1.04 MG/DL (0.55-1.30); GLOMERULAR FILTRATION RATE 53.5 (>32)
[2021-05-17 22:00] VITALS: BP 103/56
[2021-05-18] MEDS: ACETAMINOPHEN TAB 650MG DOSE (2X325MG) PO PRN ×3 (01:51→20:55)
[2021-05-18 04:55] LABS: BLOOD UREA NITROGEN 22 MG/DL (7-18); CALCIUM LEVEL 8.4 MG/DL (8.8-10.2); CARBON DIOXIDE LEVEL 26 MEQ/L (21-32); CHLORIDE LEVEL 104 MEQ/L (98-107); CREATININE FOR GFR 0.89 MG/DL (0.55-1.30); GLOMERULAR FILTRATION RATE > 60.0 (>32); GLUCOSE, FASTING 86 MG/DL (70-100); POTASSIUM SERUM 4.3 MEQ/L (3.5-5.1); SODIUM LEVEL 134 MEQ/L (136-145)
[2021-05-18] MEDS: SUCRALFATE 1 GM TAB PO SCH ×2 (05:07→16:05)
[2021-05-18 06:00] VITALS: BP 135/87
[2021-05-18 06:39] LABS: BASO # 0.1 10^3/uL (0.0-0.2); BASO % 1.3 % (0.0-1.0); EOS # 0.5 10^3/uL (0.0-0.5); EOS % 7.2 % (0.0-3.0); HEMATOCRIT 35.6 % (36.0-47.0); HEMOGLOBIN 11.9 g/dl (12.0-15.5); LYMPH # 1.3 10^3/uL (1.5-5.0); LYMPH % 20.8 % (24.0-44.0); MEAN CORPUSCULAR HEMOGLOBIN 32.7 pg (27.0-33.0); MEAN CORPUSCULAR HGB CONC 33.4 g/dl (32.0-36.5); MEAN CORPUSCULAR VOLUME 97.8 fl (80.0-96.0); MONO # 0.8 10^3/uL (0.0-0.8); MONO % 12.4 % (2.0-8.0); NEUTROPHILS # 3.6 10^3/uL (1.5-8.5); NEUTROPHILS % 57.7 % (36.0-66.0); PLATELET COUNT, AUTOMATED 221 10^3/uL (150-450); RED BLOOD COUNT 3.64 10^6/uL (4.00-5.40); WHITE BLOOD COUNT 6.2 10^3/uL (4.0-10.0)
[2021-05-18 08:27] LABS: BLOOD UREA NITROGEN 20 MG/DL (7-18); CALCIUM LEVEL 8.4 MG/DL (8.8-10.2); CARBON DIOXIDE LEVEL 23 MEQ/L (21-32); CHLORIDE LEVEL 104 MEQ/L (98-107); CREATININE FOR GFR 0.87 MG/DL (0.55-1.30); GLOMERULAR FILTRATION RATE > 60.0 (>32); GLUCOSE, FASTING 88 MG/DL (70-100); SODIUM LEVEL 134 MEQ/L (136-145)
[2021-05-18] MEDS: SODIUM CHLORIDE 1 GM TAB PO SCH ×2 (09:21→20:55)
[2021-05-18] MEDS: atenoloL 25 MG TAB PO SCH (09:21)
[2021-05-18] MEDS: DOCUSATE SODIUM 100MG CAPSULE PO SCH ×2 (09:21→20:55)
[2021-05-18] MEDS: APIXABAN 2.5 MG TAB (ELIQUIS) PO SCH ×2 (09:21→20:55)
[2021-05-18] MEDS: FERROUS SULFATE 325MG TAB PO SCH ×3 (09:21→20:55)
[2021-05-18] MEDS: FAMOTIDINE 20 MG TAB PO SCH ×2 (09:21→20:55)
[2021-05-18] MEDS: BRIMONIDINE 0.15% OPHTH SOLN 5 ML OU SCH ×2 (09:22→16:17)
[2021-05-18] MEDS: ATROPINE SULFATE 1% OP SOLN 2 ML BTL OS SCH (09:22)
[2021-05-18] MEDS: MULTIVITAMINS/MINERALS THERAP 1 TAB PO SCH (09:23)
[2021-05-18] MEDS: CIPROFLOXACIN 500MG TABLET PO SCH ×2 (09:24→17:43)
[2021-05-18] MEDS: **NOTE PATIENT COMMENT** MISC XX SCH (09:26)
[2021-05-18] MEDS ORDERED: SODI1TAB6 PO (11:48)
[2021-05-18] MEDS ORDERED: COLA100C5 PO (11:48)
[2021-05-18] MEDS ORDERED: CIPR-249 PO (11:48)
[2021-05-18] MEDS ORDERED: MIRA3350 PO (11:48)
[2021-05-18] MEDS ORDERED: ATEN25TA PO (11:48)
[2021-05-18] MEDS ORDERED: TRAM50TA2 PO (11:48)
--- NOTE | 2021-05-18 11:52 | DS.PDOC ---
Discharge Summary General Date of Admission May 16, 2021 at 20:54 Date of Discharge 05/18/21 Discharge Summary PROCEDURES PERFORMED DURING STAY: [None]. ADMITTING DIAGNOSES: 1. . DISCHARGE DIAGNOSES: 1. . COMPLICATIONS/CHIEF COMPLAINT: Hyponatremia. HISTORY OF PRESENT ILLNESS: . HOSPITAL COURSE: . DISCHARGE MEDICATIONS: Please see below. ALLERGIES: Please see below. PHYSICAL EXAMINATION ON DISCHARGE: VITAL SIGNS: Please see below. GENERAL: HEENT: NECK: CARDIOVASCULAR EXAMINATION: RESPIRATORY EXAMINATION: ABDOMINAL EXAMINATION: EXTREMITIES: SKIN: NEUROLOGICAL EXAMINATION: PSYCHIATRIC EXAMINATION: LABORATORY DATA: Please see below. IMAGING: PROGNOSIS: ACTIVITY: [As tolerated]. DIET: DISCHARGE PLAN: DISPOSITION: . DISCHARGE INSTRUCTIONS: 1. . ITEMS TO FOLLOWUP ON ON OUTPATIENT: 1. . DISCHARGE CONDITION: [Stable]. TIME SPENT ON DISCHARGE: minutes. Vital Signs/I&Os Vital Signs Date Time Temp Pulse Resp B/P (MAP) Pulse Ox O2 Delivery O2 Flow Rate FiO2 05/18/21 09:21 84 130/74 05/18/21 06:00 97.8 19 98 Room Air I&O- Last 24 Hours up to 6 AM 05/18/21 06:00 Intake Total 2032 ml Balance 2032 ml Laboratory Data Labs 24H Laboratory Tests 2 05/17/21 12:39: Anion Gap 6L, Glomerular Filtration Rate > 60.0, Calcium Level 8.1L 05/17/21 17:10: Anion Gap 6L, Glomerular Filtration Rate > 60.0, Calcium Level 8.4L 05/17/21 20:55: Anion Gap 5L, Glomerular Filtration Rate 53.5, Calcium Level 8.2L 05/18/21 00:43: Anion Gap 4L, Glomerular Filtration Rate > 60.0, Calcium Level 8.4L 05/18/21 05:54: Anion Gap 7L, Glomerular Filtration Rate > 60.0, Calcium Level 8.4L 05/18/21 05:57: Immature Granulocyte % (Auto) 0.6, Neutrophils (%) (Auto) 57.7, Lymphocytes (%) (Auto) 20.8L, Monocytes (%) (Auto) 12.4H, Eosinophils (%) (Auto) 7.2H, Basophils (%) (Auto) 1.3H, Neutrophils # (Auto) 3.6, Lymphocytes # (Auto) 1.3L, Monocytes # (Auto) 0.8, Eosinophils # (Auto) 0.5, Basophils # (Auto) 0.1, Nucleated Red Blood Cells % (auto) 0.0 CBC/BMP Laboratory Tests 05/17/21 12:39 05/17/21 17:10 05/17/21 20:55 05/18/21 00:43 05/18/21 05:54 05/18/21 05:57 Microbiology Microbiology 05/16/21 Urine Culture - Final, Complete Enterobacter Cloacae Complex Discharge Medications Scheduled Apixaban (Eliquis) 2.5 Mg Tablet, 2.5 MG PO BID, (Reported) Atenolol (Atenolol) 25 Mg Tablet, 25 MG PO BID, (Reported) Atropine Sulfate (Atropine Sulfate) 1% 2ML Drops, 1 DROP OS BID, (Reported) 0900, 1700 Brimonidine Tartrate (Alphagan P) 0.15% 5ML Drops, 1 DROP OU BID, (Reported) 0900, 1700 Carboxymethylcellulose Sodium (Refresh Tears) 15 Ml Drops, 2 DROP OU BID, (Reported) Digoxin (Digoxin) 125 Mcg Tablet, 125 MCG PO 5XW, (Reported) MON, , SUN, , SUN Dorzolamide HCl/Timolol Maleat (Cosopt Eye Drops) 10 Ml Drops, 1 DROP OU BID, (Reported) Famotidine (Famotidine) 20 Mg Tablet, 20 MG PO BID, (Reported) Ferrous Sulfate (Ferrous Sulfate) 325 Mg Tablet, 325 MG PO BID, (Reported) Furosemide (Furosemide) 40 Mg Tablet, 40 MG PO DAILY, (Reported) Lactose-Reduced Food (Ensure Enlive) 237 Ml Liquid, 237 ML PO QID, (Reported) 0800, 1200, 1600, 2000 Lidocaine (Lidocaine) 5% Adh..patch, 1 PATCH TOP DAILY, (Reported) APPLY TO LOWER BACK Magnesium Oxide (Magnesium Oxide) 400 Mg Tablet, 400 MG PO QHS, (Reported) Methyl Salicylate/Menth/Camph (Bengay Ultra Strength Cream) 57 Gm Cream..g., 1 APPLIC TOP QHS, (Reported) APPLY AFTER REMOVING LIDOCAINE PATCH FROM LOWER BACK Multivitamins (Thera M Plus Tablet) 1 Each Tablet, 1 TAB PO DAILY, (Reported) Netarsudil Mesylate (Rhopressa) 2.5 Ml Drops, 1 DROP OS QHS, (Reported) Potassium Chloride (Potassium Chloride) 10 Meq Tab.er.prt, 10 MEQ PO DAILY, (Reported) Sucralfate (Sucralfate) 1 Gm Tablet, 1 GM PO BID, (Reported) 0600, 1500 Travoprost (Travatan Z) 0.004% 2.5ML Drops, 1 DROP OU QHS, (Reported) Scheduled PRN Acetaminophen (Acetaminophen) 325 Mg Tablet, 650 MG PO Q4H PRN for PAIN / FEVER, (Reported) Milk Of Magnesia (Milk of Magnesia) 2,400 Mg/10 Ml Oral.susp, 10 ML PO DAILY PRN for CONSTIPATION, (Reported) Ondansetron HCl (Ondansetron HCl) 4 Mg Tablet, 4 MG PO Q8H PRN for NAUSEA OR VOMITING, (Reported) Sodium Chloride (Saline Nasal Poth) 44 Ml Poth, 1 SPRAY NARES Q4H PRN for NASAL CONGESTION, (Reported) Allergies Coded Allergies: No Known Drug Allergies (Verified Allergy, Unknown, 05/17/21) timolol (Verified Adverse Reaction, Intermediate, BRADYCARDIA, 05/17/21) WITH EYE DROP USE 05/17/21 AGATHA PLASENCIA MD May 18, 2021 11:52
[2021-05-18 14:00] VITALS: BP 139/79
[2021-05-18] MEDS: PILOCARPINE 1% OPHTH SOLN 15 ML OS SCH ×2 (16:05→20:55)
[2021-05-18] MEDS: DORZOLAMIDE 2% OPHTH SOLN 10 ML BTL OU SCH ×2 (16:12→20:56)
--- NOTE | 2021-05-18 16:26 | IPNPDOC ---
Date Seen The patient was seen on 05/18/21. Progress Note SUBJECTIVE: Patient was seen and examined. She is doing well. No acute events overnight. Bradycardic in the morning, while asleep. Asymptomatic. Denies CP, SOB, palpitations, fevers, chills. OBJECTIVE PHYSICAL EXAMINATION: VITAL SIGNS: please see below General: NAD, comfortable HEENT: PERRLA, EOMI, sclerae clear Neck: supple, normal ROM, no JVD Respiratory: lungs CTAB, no wheeze, no rales, no crackles CVS: RRR, normal S1, S2, no murmurs Abdo: soft, no masses, no hepatosplenomegaly, BS+, no rebound tenderness Extremities: no edema, pulses 2+ MSK: no joint deformities, normal ROM Neuro: no focal neuro deficits, moving all 4 extremities, CN2-12 intact. Strength 5/5 in all 4 extremities. No nystagmus. Psych: calm, cooperative, AAO x 3 LABORATORY DATA, IMAGING STUDIES, MICROBIOLOGY: Please see below. Echocardiogram from 05/22/2020: 1. Study is of good technical quality, patient is in atrial fibrillation with controlled rate. 2. Normal LV size with normal LV systolic function. 3. Dilated right ventricle. 4. Severe biatrial enlargement. 5. Aortic sclerosis with no significant stenosis and approximately [id number] aortic insufficiency. 6. At least moderate mitral insufficiency. 7. Severe tricuspid insufficiency. 8. Elevated central venous pressure and at least moderate pulmonary hypertension. DVT prophylaxis ordered?: Patient is on Eliquis 2.5 mg twice daily ASSESSMENT AND PLAN: Patient is an 85-year-old female with a past medical history of diastolic CHF, A. fib on Eliquis, colon cancer, GERD, hyperlipidemia, dementia, CKD, and peripheral vascular disease.. She is a resident of [facility]. Presented to the ER with low back pain without a prior history of trauma. Found to be constipated with relief in symptoms after having a bowel movement. Patient was found to have a sodium of 125 on admission. But it has been improving with IVF. 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 Atrial fibrillation - AC with eliquis 2.5 mg BID - takes atenolol 25 mg BID - reduced dose of atenolol to 25 mg once daily - stop timolol eye drops - d/w Dr. Davenport Agrees with plan. Abnormal EKG - no chest pain, no palpitations. - t wave inversions showing T wave inversions in leads 2-4 - new since prior EKG in 05/2020 - initial trop < 0.02 - D/w Dr. Davenport To obtain another set of trop and an EKG - if stable, to follow up in cardiology clinic Diastolic CHF - appears to be euvolemic at this time - BNP elevated, however shows no edema, no crackles on auscultation - will DC IVF Glaucoma - d/w Dr. 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 GERD - c/w PPI Dementia - AAO x 3 Dispo: pending medical clearance. VS, I&O, 24H, Fishbone Vital Signs/I&O Vital Signs Date Time Temp Pulse Resp B/P (MAP) Pulse Ox O2 Delivery O2 Flow Rate FiO2 05/18/21 14:00 97.6 73 16 139/79 (99) 97 Room Air I&O- Last 24 Hours up to 6 AM 05/18/21 06:00 Intake Total 2032 ml Balance 2032 ml Laboratory Data 24H LABS Laboratory Tests 2 05/17/21 17:10: Anion Gap 6L, Glomerular Filtration Rate > 60.0, Calcium Level 8.4L 05/17/21 20:55: Anion Gap 5L, Glomerular Filtration Rate 53.5, Calcium Level 8.2L 05/18/21 00:43: Anion Gap 4L, Glomerular Filtration Rate > 60.0, Calcium Level 8.4L 05/18/21 05:54: Anion Gap 7L, Glomerular Filtration Rate > 60.0, Calcium Level 8.4L 05/18/21 05:57: Immature Granulocyte % (Auto) 0.6, Neutrophils (%) (Auto) 57.7, Lymphocytes (%) (Auto) 20.8L, Monocytes (%) (Auto) 12.4H, Eosinophils (%) (Auto) 7.2H, Basophils (%) (Auto) 1.3H, Neutrophils # (Auto) 3.6, Lymphocytes # (Auto) 1.3L, Monocytes # (Auto) 0.8, Eosinophils # (Auto) 0.5, Basophils # (Auto) 0.1, Nucleated Red Blood Cells % (auto) 0.0 05/18/21 12:45: Troponin I < 0.02 05/18/21 15:48: CBC/BMP Laboratory Tests 05/17/21 17:10 05/17/21 20:55 05/18/21 00:43 05/18/21 05:54 05/18/21 05:57 Microbiology Microbiology 05/16/21 Urine Culture - Final, Complete Enterobacter Cloacae Complex AGATHA PLASENCIA MD May 18, 2021 16:26
[2021-05-18] MEDS: LIDOCAINE 5% (LIDODERM) PATCH TD SCH (20:55)
[2021-05-18] MEDS: LATANOPROST 0.005% OPHTH SOLN 2.5 ML OU SCH (20:56)
[2021-05-18 22:00] VITALS: BP 135/74
[2021-05-19] MEDS: ACETAMINOPHEN TAB 650MG DOSE (2X325MG) PO PRN ×2 (02:37→21:47)
[2021-05-19] MEDS: SUCRALFATE 1 GM TAB PO SCH ×2 (05:20→16:04)
[2021-05-19] MEDS: CIPROFLOXACIN 500MG TABLET PO SCH ×2 (05:20→17:18)
[2021-05-19 06:00] VITALS: BP 140/70
[2021-05-19 07:13] LABS: BASO # 0.1 10^3/uL (0.0-0.2); BASO % 1.2 % (0.0-1.0); EOS # 0.3 10^3/uL (0.0-0.5); EOS % 5.1 % (0.0-3.0); HEMATOCRIT 36.2 % (36.0-47.0); HEMOGLOBIN 11.9 g/dl (12.0-15.5); LYMPH % 15.6 % (24.0-44.0); MEAN CORPUSCULAR HEMOGLOBIN 32.6 pg (27.0-33.0); MEAN CORPUSCULAR HGB CONC 32.9 g/dl (32.0-36.5); MEAN CORPUSCULAR VOLUME 99.2 fl (80.0-96.0); MONO # 0.8 10^3/uL (0.0-0.8); MONO % 11.9 % (2.0-8.0); NEUTROPHILS # 4.4 10^3/uL (1.5-8.5); NEUTROPHILS % 65.4 % (36.0-66.0); PLATELET COUNT, AUTOMATED 247 10^3/uL (150-450); RED BLOOD COUNT 3.65 10^6/uL (4.00-5.40); WHITE BLOOD COUNT 6.7 10^3/uL (4.0-10.0)
[2021-05-19 07:34] LABS: BLOOD UREA NITROGEN 14 MG/DL (7-18); CALCIUM LEVEL 8.6 MG/DL (8.8-10.2); CARBON DIOXIDE LEVEL 24 MEQ/L (21-32); CHLORIDE LEVEL 107 MEQ/L (98-107); CREATININE FOR GFR 0.79 MG/DL (0.55-1.30); GLOMERULAR FILTRATION RATE > 60.0 (>32); GLUCOSE, FASTING 86 MG/DL (70-100); SODIUM LEVEL 137 MEQ/L (136-145)
--- NOTE | 2021-05-19 07:53 | ECGEPIP ---
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
--- NOTE | 2021-05-19 07:54 | ECGEPIP ---
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
[2021-05-19] MEDS ORDERED: ONDANSETRON 4MG/2ML VIAL IV PRN (07:55)
[2021-05-19 08:00] VITALS: BP 154/100
--- NOTE | 2021-05-19 09:22 | REP ---
INDICATION: vomiting. COMPARISON: Comparison radiographs May 22, 2020. TECHNIQUE: Portably obtained AP supine radiographs of the abdomen and pelvis. Two views provided. FINDINGS: There is formed stool in the proximal and distal colon. No large or small bowel dilation is appreciated. No mass, organomegaly, or pathologic calcification is seen. There is diffuse osteopenia. No acute bony abnormality. IMPRESSION: Unremarkable bowel gas pattern. <Electronically signed by Luis Manuel Baeza > 05/19/21 0931
[2021-05-19] MEDS: BRIMONIDINE 0.15% OPHTH SOLN 5 ML OU SCH ×2 (09:45→16:13)
[2021-05-19] MEDS: DORZOLAMIDE 2% OPHTH SOLN 10 ML BTL OU SCH ×3 (09:54→20:07)
[2021-05-19] MEDS: **NOTE PATIENT COMMENT** MISC XX SCH (09:55)
[2021-05-19] MEDS: PILOCARPINE 1% OPHTH SOLN 15 ML OS SCH ×3 (10:20→20:06)
[2021-05-19] MEDS: APIXABAN 2.5 MG TAB (ELIQUIS) PO SCH ×2 (10:22→20:05)
[2021-05-19] MEDS: DOCUSATE SODIUM 100MG CAPSULE PO SCH ×2 (10:22→20:05)
[2021-05-19] MEDS: SODIUM CHLORIDE 1 GM TAB PO SCH ×2 (10:22→20:05)
[2021-05-19] MEDS: MULTIVITAMINS/MINERALS THERAP 1 TAB PO SCH (10:22)
[2021-05-19] MEDS: FERROUS SULFATE 325MG TAB PO SCH ×2 (10:22→20:05)
[2021-05-19] MEDS: FAMOTIDINE 20 MG TAB PO SCH ×2 (10:23→20:05)
[2021-05-19] MEDS: atenoloL 25 MG TAB PO SCH (10:24)
[2021-05-19] MEDS ORDERED: DORZ2SOL4 OU (11:09)
[2021-05-19] MEDS ORDERED: PILO1OPD OS (11:09)
[2021-05-19 14:00] VITALS: BP 147/86
--- NOTE | 2021-05-19 14:06 | IPNPDOC ---
Date Seen The patient was seen on 05/19/21. Progress Note SUBJECTIVE: Patient was seen and examined. This morning she had one episode of vomiting after eating her breakfast. She states that she has no abdominal pain and is passing gas and her last bowel movement was on 05/18/2021. Patient has no chest pain or palpitation or shortness of breath. Overall she is feeling well now. Her vomiting and nausea improved with 1 dose of Zofran. Discharge to [facility] delayed as patient had an episode of vomiting. Plan for 05/20/2021. OBJECTIVE PHYSICAL EXAMINATION: VITAL SIGNS: please see below General: NAD, comfortable HEENT: PERRLA, EOMI, sclerae clear Neck: supple, normal ROM, no JVD Respiratory: lungs CTAB, no wheeze, no rales, no crackles CVS: RRR, normal S1, S2, no murmurs Abdo: soft, no masses, no hepatosplenomegaly, BS+, no rebound tenderness Extremities: no edema, pulses 2+ MSK: no joint deformities, normal ROM Neuro: no focal neuro deficits, moving all 4 extremities, CN2-12 intact. Strength 5/5 in all 4 extremities. No nystagmus. Psych: calm, cooperative, AAO x 3 LABORATORY DATA, IMAGING STUDIES, MICROBIOLOGY: Please see below. Echocardiogram from 05/22/2020: 1. Study is of good technical quality, patient is in atrial fibrillation with controlled rate. 2. Normal LV size with normal LV systolic function. 3. Dilated right ventricle. 4. Severe biatrial enlargement. 5. Aortic sclerosis with no significant stenosis and approximately mxzk-es-omsrlegn aortic insufficiency. 6. At least moderate mitral insufficiency. 7. Severe tricuspid insufficiency. 8. Elevated central venous pressure and at least moderate pulmonary hypertension. DVT prophylaxis ordered?: Patient is on Eliquis 2.5 mg twice daily ASSESSMENT AND PLAN: Patient is an 85-year-old female with a past medical history of diastolic CHF, A. fib on Eliquis, colon cancer, GERD, hyperlipidemia, dementia, CKD, and peripheral vascular disease.. She is a resident of [facility]. Presented to the ER with low back pain without a prior history of trauma. Found to be constipated with relief in symptoms after having a bowel movement. Patient was found to have a sodium of 125 on admission. But it has been improving with IVF. 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 Atrial fibrillation - AC with eliquis 2.5 mg BID - takes atenolol 25 mg BID - reduced dose of atenolol to 25 mg once daily - stop timolol eye drops - d/w Dr. Davenport Agrees with plan. Abnormal EKG - no chest pain, no palpitations. - t wave inversions showing T wave inversions in leads 2-4 - new since prior EKG in 05/2020 - initial trop < 0.02 - D/w Dr. Davenport To obtain another set of trop and an EKG - if stable, to follow up in cardiology clinic Diastolic CHF - appears to be euvolemic at this time - BNP elevated, however shows no edema, no crackles on auscultation - will DC IVF Glaucoma - d/w Dr. 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 GERD - c/w PPI Dementia - AAO x 3 Dispo: Delayed in transfer due to 1 episode of vomiting this morning, informed by [facility] that they cannot accept her today. We will plan for discharge on 05/20/2021 at 8:30 AM. Repeat Covid test ordered VS, I&O, 24H, [facility] Vital Signs/I&O Vital Signs Date Time Temp Pulse Resp B/P (MAP) Pulse Ox O2 Delivery O2 Flow Rate FiO2 05/19/21 10:24 72 142/80 05/19/21 08:00 97.7 24 97 Room Air I&O- Last 24 Hours up to 6 AM 05/19/21 06:00 Intake Total 600 ml Balance 600 ml Laboratory Data 24H LABS Laboratory Tests 2 05/18/21 15:48: Troponin I < 0.02 05/19/21 06:28: Immature Granulocyte % (Auto) 0.8, Neutrophils (%) (Auto) 65.4, Lymphocytes (%) (Auto) 15.6L, Monocytes (%) (Auto) 11.9H, Eosinophils (%) (Auto) 5.1H, Basophils (%) (Auto) 1.2H, Neutrophils # (Auto) 4.4, Lymphocytes # (Auto) 1.0L, Monocytes # (Auto) 0.8, Eosinophils # (Auto) 0.3, Basophils # (Auto) 0.1, Nucleated Red Blood Cells % (auto) 0.0, Anion Gap 6L, Glomerular Filtration Rate > 60.0, Calcium Level 8.6L, Magnesium Level 2.0 CBC/BMP Laboratory Tests 05/19/21 06:28 Microbiology Microbiology 05/16/21 Urine Culture - Final, Complete Enterobacter Cloacae Complex AGATHA PLASENCIA MD May 19, 2021 14:06
[2021-05-19 20:00] VITALS: BP 134/63
[2021-05-19] MEDS: LIDOCAINE 5% (LIDODERM) PATCH TD SCH (20:06)
[2021-05-19] MEDS: LATANOPROST 0.005% OPHTH SOLN 2.5 ML OU SCH (20:06)
[2021-05-20] MEDS: SUCRALFATE 1 GM TAB PO SCH (05:09)
[2021-05-20] MEDS: CIPROFLOXACIN 500MG TABLET PO SCH (05:09)
[2021-05-20 06:00] VITALS: BP 133/93
--- NOTE | 2021-05-20 07:38 | IPNPDOC ---
Date Seen The patient was seen on 05/20/21. Progress Note SUBJECTIVE: Patient was seen and examined. She had am uneventful night. She has not had any repeat vomiting episodes. She denies chest pain, palpitations, nausea, vomiting, worsening low back pain. OBJECTIVE PHYSICAL EXAMINATION: VITAL SIGNS: please see below General: NAD, comfortable HEENT: PERRLA, EOMI, sclerae clear Neck: supple, normal ROM, no JVD Respiratory: lungs CTAB, no wheeze, no rales, no crackles CVS: RRR, normal S1, S2, no murmurs Abdo: soft, no masses, no hepatosplenomegaly, BS+, no rebound tenderness Extremities: no edema, pulses 2+ MSK: no joint deformities, normal ROM Neuro: no focal neuro deficits, moving all 4 extremities, CN2-12 intact. Strength 5/5 in all 4 extremities. No nystagmus. Psych: calm, cooperative, AAO x 3 LABORATORY DATA, IMAGING STUDIES, MICROBIOLOGY: Please see below. Echocardiogram from 05/22/2020: 1. Study is of good technical quality, patient is in atrial fibrillation with controlled rate. 2. Normal LV size with normal LV systolic function. 3. Dilated right ventricle. 4. Severe biatrial enlargement. 5. Aortic sclerosis with no significant stenosis and approximately [id number] aortic insufficiency. 6. At least moderate mitral insufficiency. 7. Severe tricuspid insufficiency. 8. Elevated central venous pressure and at least moderate pulmonary hypertension. DVT prophylaxis ordered?: Patient is on Eliquis 2.5 mg twice daily ASSESSMENT AND PLAN: Patient is an 85-year-old female with a past medical history of diastolic CHF, A. fib on Eliquis, colon cancer, GERD, hyperlipidemia, dementia, CKD, and peripheral vascular disease.. She is a resident of [facility]. Presented to the ER with low back pain without a prior history of trauma. Found to be constipated with relief in symptoms after having a bowel movement. Patient was found to have a sodium of 125 on admission. But it has been improving with IVF. PROBLEMS: Hyponatremia in setting of diuretic use - Na 125, improved to 132 - DC IV NS - start on sodium chloride tabs BID - d/w Dr. Castro. Will evaluate patient in the clinic, referral placed. - recommended to resume furosemide 40 mg daily (home dose), continue with salt tabs bid. Low back pain 2/ DJD - no acute findings on XR imaging - PT cleared for home w services - no neurological findings, no bowel or bladder incontinence. Atrial fibrillation - AC with eliquis 2.5 mg BID - takes atenolol 25 mg BID - reduced dose of atenolol to 25 mg once daily - stop timolol eye drops - d/w Dr. Davenport Agrees with plan. Abnormal EKG - no chest pain, no palpitations. - t wave inversions showing T wave inversions in leads 2-4 - new since prior EKG in 05/2020 - initial trop < 0.02 - D/w Dr. Davenport To obtain another set of trop and an EKG - if stable, to follow up in cardiology clinic Diastolic CHF - appears to be euvolemic at this time - BNP elevated, however shows no edema, no crackles on auscultation - will DC IVF Glaucoma - d/w Dr. 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 Vomiting - one episode - passing gas, had BM - KUB showing no evidence for bowel distension/obstruction - abdo soft and non tender, non distended - improved after 1 dose of zofran GERD - c/w PPI Dementia - AAO x 3 Dispo: Delayed in transfer due to 1 episode of vomiting this morning, informed by [facility] that they cannot accept her today. We will plan for discharge on 05/20/2021 at 8:30 AM. Repeat Covid test ordered VS, I&O, 24H, Fishbone Vital Signs/I&O Vital Signs Date Time Temp Pulse Resp B/P (MAP) Pulse Ox O2 Delivery O2 Flow Rate FiO2 05/20/21 06:00 97.2 87 18 133/93 (106) 98 Room Air I&O- Last 24 Hours up to 6 AM 05/20/21 05:59 Intake Total 1110 ml Output Total 700 ml Balance 410 ml Laboratory Data 24H LABS Laboratory Tests 2 05/20/21 05:36: Coronavirus (COVID-19)(PCR) NEGATIVE Microbiology Microbiology 05/16/21 Urine Culture - Final, Complete Enterobacter Cloacae Complex AGATHA PLASENCIA MD May 20, 2021 07:38
[2021-05-20 07:45] VITALS: BP 150/88
[2021-05-20] MEDS: atenoloL 25 MG TAB PO SCH (07:45)
[2021-05-20] MEDS: FAMOTIDINE 20 MG TAB PO SCH (07:45)
[2021-05-20] MEDS: DOCUSATE SODIUM 100MG CAPSULE PO SCH (07:46)
[2021-05-20] MEDS: MULTIVITAMINS/MINERALS THERAP 1 TAB PO SCH (07:46)
[2021-05-20] MEDS: SODIUM CHLORIDE 1 GM TAB PO SCH (07:46)
[2021-05-20] MEDS: APIXABAN 2.5 MG TAB (ELIQUIS) PO SCH (07:46)
[2021-05-20] MEDS: FERROUS SULFATE 325MG TAB PO SCH (07:46)
[2021-05-20] MEDS: PILOCARPINE 1% OPHTH SOLN 15 ML OS SCH (07:46)
[2021-05-20] MEDS: BRIMONIDINE 0.15% OPHTH SOLN 5 ML OU SCH (07:48)
[2021-05-20] MEDS: DORZOLAMIDE 2% OPHTH SOLN 10 ML BTL OU SCH (07:49)
[2021-05-20] MEDS: **NOTE PATIENT COMMENT** MISC XX SCH (07:57)
[2021-05-20] MEDS: ACETAMINOPHEN TAB 650MG DOSE (2X325MG) PO PRN (08:08)
== END 2021-05-20 08:48 | DRG 641 ==
LOC: M ED 14:38 → EDBD 14:38 → M ED INP 20:54 → M MSPAV 05-17 00:32
PROVIDERS: ADMIT Family Medicine; ATTEND Family Medicine
DX: E87.1 Hypo-osmolality and hyponatremia (principal); I50.32 Chronic diastolic (congestive) heart failure; Z79.899 Other long term (current) drug therapy; I48.91 Unspecified atrial fibrillation; Z79.01 Long term (current) use of anticoagulants; K21.9 Gastro-esophageal reflux disease without esophagitis; F03.90 Unspecified dementia, unspecified severity, without behavioral disturbance, psychotic disturbance, mood disturbance, and anxiety; Z85.038 Personal history of other malignant neoplasm of large intestine; I73.9 Peripheral vascular disease, unspecified; N18.9 Chronic kidney disease, unspecified; Z66 Do not resuscitate; M51.36 Other intervertebral disc degeneration, lumbar region; H40.9 Unspecified glaucoma; I08.3 Combined rheumatic disorders of mitral, aortic and tricuspid valves

== ENCOUNTER → 2021-06-01 | Outpatient (REF) | payer MEDICARE, MEDICAID ==
[~2021-06-01] MED LIST changes: +ALPH0.156 OU; +ATRO1OPD OS; +BENG1CRE TOP; +CIPR-249 PO; +COLA100C5 PO; +COSO1SOL3 OU; +DORZ2SOL4 OU; +HM S0.65 NARES; -KLOR10TA76 PO; +LIDO1PAD TOP; +MAGN400T2 PO; +MIRA3350 PO; +PILO1OPD OS; +POTA-136 PO; +POTA10TA17 PO; +REFR0.5D8 OU; +RHOP0.02 OS; +SODI1TAB6 PO; +TRAM50TA2 PO; +VITMTA PO
== END ==
LOC: M LAB REF 18:22
PROVIDERS: ATTEND Nurse Practitioner Adult Health
DX: I13.0 Hypertensive heart and chronic kidney disease with heart failure and stage 1 through stage 4 chronic kidney disease, or unspecified chronic kidney disease (principal); Z79.01 Long term (current) use of anticoagulants; N18.9 Chronic kidney disease, unspecified; I50.9 Heart failure, unspecified

== ENCOUNTER → 2021-07-14 | Outpatient (REF) | payer MEDICARE, MEDICAID | LOC: M LAB REF 16:50 | PROVIDERS: ATTEND Nurse Practitioner Adult Health | DX: I48.21 Permanent atrial fibrillation (principal) ==

== ENCOUNTER → 2021-07-20 | Outpatient (REF) | payer MEDICARE, MEDICAID ==
[2021-07-20 13:15] LABS: CALCIUM LEVEL 9.1 MG/DL (8.8-10.2); CREATININE FOR GFR 1.3 MG/DL (0.55-1.30); DIGOXIN LEVEL 0.4 NG/ML (0.5-2.0); GLOMERULAR FILTRATION RATE 41.3 (>32); POTASSIUM SERUM 4.5 MEQ/L (3.5-5.1)
== END ==
PROVIDERS: ATTEND Nurse Practitioner Adult Health
DX: I48.91 Unspecified atrial fibrillation (principal); Z79.899 Other long term (current) drug therapy

== ENCOUNTER → 2021-08-05 | Outpatient (REF) | payer MEDICARE, MEDICAID | PROVIDERS: ATTEND Nurse Practitioner Adult Health | DX: R19.7 Diarrhea, unspecified (principal) ==

== ENCOUNTER → 2021-08-16 | Outpatient (REF) | payer MEDICARE, MEDICAID | LOC: M LAB REF 16:47 | PROVIDERS: ATTEND Nurse Practitioner Adult Health | DX: M25.50 Pain in unspecified joint (principal) ==

== ENCOUNTER → 2021-11-23 | Outpatient (REF) | payer MEDICARE, MEDICAID ==
[2021-11-23 10:28] LABS: CALCIUM LEVEL 9.2 MG/DL (8.8-10.2); CREATININE FOR GFR 1.01 MG/DL (0.55-1.30); GLOMERULAR FILTRATION RATE 55.2 (>32); POTASSIUM SERUM 4.3 MEQ/L (3.5-5.1)
== END ==
PROVIDERS: ATTEND Nurse Practitioner Adult Health
DX: I50.9 Heart failure, unspecified (principal)

== ENCOUNTER 2021-12-04 01:04 | Inpatient (IN) | payer MEDICARE, MEDICAID ==
[~2021-12-04] VITALS: Ht 157.5 cm; Wt 47.1 kg
[2021-12-04] VITALS (7 sets, daily range): BP systolic 140–174; BP diastolic 72–92; O2SAT 92–94
[2021-12-04] MEDS ORDERED: ONDANSETRON 4MG/2ML VIAL IV ONE (01:35)
[2021-12-04] MEDS ORDERED: MORPHINE 2 MG/ML 1ML VIAL (J2270) IV ONE ×3 (01:35→05:05)
[2021-12-04] MEDS ORDERED: MORPHINE 4 MG/ML 1ML VIAL/SYRINGE (J2270) IV ONE (01:35)
[2021-12-04 01:36] LABS: BASO # 0.1 10^3/uL (0.0-0.2); BASO % 1.1 % (0.0-1.0); EOS # 0.2 10^3/uL (0.0-0.5); EOS % 2.6 % (0.0-3.0); HEMATOCRIT 34.2 % (36.0-47.0); HEMOGLOBIN 10.9 g/dl (12.0-15.5); LYMPH # 1.4 10^3/uL (1.5-5.0); LYMPH % 18.3 % (24.0-44.0); MEAN CORPUSCULAR HEMOGLOBIN 33.3 pg (27.0-33.0); MEAN CORPUSCULAR HGB CONC 31.9 g/dl (32.0-36.5); MEAN CORPUSCULAR VOLUME 104.6 fl (80.0-96.0); MONO # 0.8 10^3/uL (0.0-0.8); MONO % 10.5 % (2.0-8.0); NEUTROPHILS # 5.1 10^3/uL (1.5-8.5); NEUTROPHILS % 66.8 % (36.0-66.0); PLATELET COUNT, AUTOMATED 205 10^3/uL (150-450); RED BLOOD COUNT 3.27 10^6/uL (4.00-5.40); WHITE BLOOD COUNT 7.6 10^3/uL (4.0-10.0)
[2021-12-04 01:54] LABS: INR 1.31; PROTHROMBIN TIME 16.7 SECONDS (12.7-14.5)
[2021-12-04 02:15] LABS: CK-MB VALUE MASS 3.4 NG/ML (<3.6); MB/CK RELATIVE INDEX 2.04 (< OR =4)
[2021-12-04 02:25] LABS: CALCIUM LEVEL 8.9 MG/DL (8.8-10.2); CREATININE FOR GFR 1.14 MG/DL (0.55-1.30); MAGNESIUM LEVEL 2.2 MG/DL (1.8-2.4); POTASSIUM SERUM 3.4 MEQ/L (3.5-5.1); THYROID STIMULATING HORMONE 1.57 uIU/ML (0.358-3.740)
[2021-12-04] MEDS: METOPROLOL 5 MG/5 ML VIAL IV SCH ×2 (04:45→04:50)
[2021-12-04] MEDS ORDERED: HYDROMORPHONE HCL 0.5 MG/ 0.5 ML SYRINGE (J1170 PER 1) IV PRN (05:20)
[2021-12-04] MEDS ORDERED: ONDANSETRON 4MG/2ML VIAL IV PRN (05:20)
[2021-12-04] MEDS ORDERED: NALOXONE INJ 0.4MG/1ML VIAL (J2310 PER 1MG) IV PRN (05:20)
[2021-12-04] MEDS: HYDROMORPHONE HCL 0.5 MG/ 0.5 ML SYRINGE (J1170 PER 1) IV PRN ×3 (05:44→23:36)
[2021-12-04] MEDS ORDERED: TRUS1SOL OU (05:45)
[2021-12-04] MEDS ORDERED: BRIM1OPD OU (05:45)
[2021-12-04] MEDS ORDERED: ASPE4PAD TOP (05:45)
[2021-12-04] MEDS ORDERED: PILO1OPD OS (05:45)
[2021-12-04] MEDS ORDERED: ATEN25TA PO (05:45)
[2021-12-04] MEDS ORDERED: TRAM50TA2 PO (05:45)
[2021-12-04] MEDS ORDERED: FURO20TA2 PO ×2 (05:45)
[2021-12-04] MEDS ORDERED: SODI1TAB6 PO (05:45)
[2021-12-04] MEDS ORDERED: ACET1TAB55 PO (05:48)
[2021-12-04] MEDS ORDERED: HOME MED LIST COMPLETE! XX SCH (05:50)
[2021-12-04 05:52] LABS: RSV AMPLIFICATION NEGATIVE (NEGATIVE)
[2021-12-04] MEDS ORDERED: SODIUM CHLORIDE NASAL 0.65% SPRAY BTL (OCEAN) PRN (06:00)
[2021-12-04] MEDS ORDERED: SUCRALFATE 1 GM TAB PO SCH (06:00)
[2021-12-04] MEDS ORDERED: NS 1,000 ML IV ONE (06:35)
[2021-12-04] MEDS ORDERED: POTASSIUM CHLORIDE 10MEQ SR TABLET PO ONE (07:30)
[2021-12-04 08:22] LABS: BASO % 0.4 % (0.0-1.0); EOS % 0.2 % (0.0-3.0); HEMATOCRIT 33.1 % (36.0-47.0); HEMOGLOBIN 10.5 g/dl (12.0-15.5); LYMPH # 0.6 10^3/uL (1.5-5.0); LYMPH % 5.4 % (24.0-44.0); MEAN CORPUSCULAR HEMOGLOBIN 33.2 pg (27.0-33.0); MEAN CORPUSCULAR HGB CONC 31.7 g/dl (32.0-36.5); MEAN CORPUSCULAR VOLUME 104.7 fl (80.0-96.0); MONO # 0.9 10^3/uL (0.0-0.8); MONO % 7.9 % (2.0-8.0); NEUTROPHILS # 9.7 10^3/uL (1.5-8.5); NEUTROPHILS % 85.6 % (36.0-66.0); PLATELET COUNT, AUTOMATED 188 10^3/uL (150-450); RED BLOOD COUNT 3.16 10^6/uL (4.00-5.40); WHITE BLOOD COUNT 11.3 10^3/uL (4.0-10.0)
[2021-12-04] MEDS ORDERED: FUROSEMIDE 20 MG TAB PO SCH ×2 (09:00)
[2021-12-04] MEDS ORDERED: SODIUM CHLORIDE 1 GM TAB PO SCH (09:00)
[2021-12-04] MEDS ORDERED: FAMOTIDINE 20 MG TAB PO SCH (09:00)
[2021-12-04] MEDS: DORZOLAMIDE 2% OPHTH SOLN 10 ML BTL OU SCH ×3 (09:00→20:56)
[2021-12-04] MEDS ORDERED: atenoloL 25 MG TAB PO SCH (09:00)
[2021-12-04] MEDS: LR 1,000 ML IV SCH (09:04)
[2021-12-04 09:45] LABS: ALBUMIN 3.2 GM/DL (3.2-5.2); ALT/SGPT 24 U/L (12-78); BILIRUBIN,TOTAL 0.7 MG/DL (0.2-1.0); BLOOD UREA NITROGEN 17 MG/DL (7-18); CALCIUM LEVEL 8.4 MG/DL (8.8-10.2); CARBON DIOXIDE LEVEL 27 MEQ/L (21-32); CHLORIDE LEVEL 107 MEQ/L (98-107); CREATININE FOR GFR 0.92 MG/DL (0.55-1.30); GLOMERULAR FILTRATION RATE > 60.0 (>32); GLUCOSE, FASTING 130 MG/DL (70-100); POTASSIUM SERUM 3.9 MEQ/L (3.5-5.1); SODIUM LEVEL 139 MEQ/L (136-145); TOTAL PROTEIN 6.2 GM/DL (6.4-8.2)
[2021-12-04] MEDS: atenoloL 50 MG TAB PO SCH (10:25)
[2021-12-04] MEDS: BRIMONIDINE 0.1% OPHTH SOLN 5 ML OU SCH ×3 (12:27→20:14)
[2021-12-04] MEDS: PILOCARPINE 1% OPHTH SOLN 15 ML OS SCH ×3 (12:27→20:14)
[2021-12-04] MEDS ORDERED: FUROSEMIDE 40MG/4ML VIAL (J1940) IV ONE (14:00)
[2021-12-04] MEDS: LATANOPROST 0.005% OPHTH SOLN 2.5 ML OU SCH (20:13)
[2021-12-04] MEDS: MAGNESIUM OXIDE 400MG TAB (MAG-OX) PO SCH (20:15)
[2021-12-05] VITALS (20 sets, daily range): BP systolic 142–166; BP diastolic 57–98; O2SAT 90–100
[2021-12-05] MEDS: HYDROMORPHONE HCL 0.5 MG/ 0.5 ML SYRINGE (J1170 PER 1) IV PRN ×4 (02:58→20:22)
[2021-12-05] MEDS: LR 1,000 ML IV SCH (03:00)
[2021-12-05 06:40] LABS: HEMATOCRIT 31.2 % (36.0-47.0); MEAN CORPUSCULAR HEMOGLOBIN 33.3 pg (27.0-33.0); MEAN CORPUSCULAR HGB CONC 32.1 g/dl (32.0-36.5); PLATELET COUNT, AUTOMATED 177 10^3/uL (150-450); WHITE BLOOD COUNT 10.5 10^3/uL (4.0-10.0)
[2021-12-05 06:58] LABS: CK-MB VALUE MASS 2.5 NG/ML (<3.6); MB/CK RELATIVE INDEX 1.79 (< OR =4)
[2021-12-05 07:47] LABS: BLOOD UREA NITROGEN 18 MG/DL (7-18); CALCIUM LEVEL 8.5 MG/DL (8.8-10.2); CARBON DIOXIDE LEVEL 28 MEQ/L (21-32); CHLORIDE LEVEL 106 MEQ/L (98-107); CREATININE FOR GFR 0.86 MG/DL (0.55-1.30); GLOMERULAR FILTRATION RATE > 60.0 (>32); GLUCOSE, FASTING 97 MG/DL (70-100); MAGNESIUM LEVEL 2.2 MG/DL (1.8-2.4); NT-PRO BNP 5528 PG/ML (<450); POTASSIUM SERUM 4.1 MEQ/L (3.5-5.1); SODIUM LEVEL 141 MEQ/L (136-145)
[2021-12-05] MEDS: DIGOXIN 0.125 MG TAB PO SCH (08:45)
[2021-12-05] MEDS: atenoloL 50 MG TAB PO SCH (08:45)
[2021-12-05] MEDS: PILOCARPINE 1% OPHTH SOLN 15 ML OS SCH ×3 (08:45→20:21)
[2021-12-05] MEDS: BRIMONIDINE 0.1% OPHTH SOLN 5 ML OU SCH ×3 (08:45→20:21)
[2021-12-05] MEDS: DORZOLAMIDE 2% OPHTH SOLN 10 ML BTL OU SCH ×3 (08:46→20:21)
[2021-12-05] MEDS ORDERED: FUROSEMIDE 20MG/2ML VIAL (J1940) IV ONE (11:15)
[2021-12-05] MEDS: RHOPRESSA 0.02% OS SCH (20:21)
[2021-12-05] MEDS: LATANOPROST 0.005% OPHTH SOLN 2.5 ML OU SCH (20:21)
[2021-12-05] MEDS: MAGNESIUM OXIDE 400MG TAB (MAG-OX) PO SCH (20:21)
[2021-12-06] VITALS (21 sets, daily range): BP systolic 130–169; BP diastolic 61–92; O2SAT 94–100
[2021-12-06] MEDS: HYDROMORPHONE HCL 0.5 MG/ 0.5 ML SYRINGE (J1170 PER 1) IV PRN ×5 (03:24→21:21)
[2021-12-06 05:48] LABS: BASO # 0.1 10^3/uL (0.0-0.2); BASO % 0.7 % (0.0-1.0); EOS # 0.1 10^3/uL (0.0-0.5); EOS % 0.6 % (0.0-3.0); HEMOGLOBIN 9.6 g/dl (12.0-15.5); LYMPH # 0.9 10^3/uL (1.5-5.0); LYMPH % 7.4 % (24.0-44.0); MEAN CORPUSCULAR HEMOGLOBIN 32.9 pg (27.0-33.0); MEAN CORPUSCULAR VOLUME 102.7 fl (80.0-96.0); MONO # 1.1 10^3/uL (0.0-0.8); MONO % 9.9 % (2.0-8.0); NEUTROPHILS # 9.2 10^3/uL (1.5-8.5); NEUTROPHILS % 80.8 % (36.0-66.0); PLATELET COUNT, AUTOMATED 179 10^3/uL (150-450); RED BLOOD COUNT 2.92 10^6/uL (4.00-5.40); WHITE BLOOD COUNT 11.4 10^3/uL (4.0-10.0)
[2021-12-06 05:57] LABS: INR 1.14
[2021-12-06 06:11] LABS: ALT/SGPT 20 U/L (12-78); BILIRUBIN,TOTAL 0.6 MG/DL (0.2-1.0); BLOOD UREA NITROGEN 24 MG/DL (7-18); CALCIUM LEVEL 8.8 MG/DL (8.8-10.2); CARBON DIOXIDE LEVEL 32 MEQ/L (21-32); CHLORIDE LEVEL 104 MEQ/L (98-107); GLOMERULAR FILTRATION RATE > 60.0 (>32); GLUCOSE, FASTING 107 MG/DL (70-100); MAGNESIUM LEVEL 2.3 MG/DL (1.8-2.4); POTASSIUM SERUM 3.9 MEQ/L (3.5-5.1); SODIUM LEVEL 141 MEQ/L (136-145)
[2021-12-06] MEDS: atenoloL 50 MG TAB PO SCH (08:13)
[2021-12-06] MEDS: DORZOLAMIDE 2% OPHTH SOLN 10 ML BTL OU SCH ×3 (08:13→21:10)
[2021-12-06] MEDS: DIGOXIN 0.125 MG TAB PO SCH (08:13)
[2021-12-06] MEDS: PILOCARPINE 1% OPHTH SOLN 15 ML OS SCH ×3 (08:14→21:10)
[2021-12-06] MEDS: BRIMONIDINE 0.1% OPHTH SOLN 5 ML OU SCH ×3 (08:14→21:10)
[2021-12-06] MEDS: D5W/0.9% SODIUM CHLORIDE 1,000 ML IV SCH (10:52)
[2021-12-06] MEDS ORDERED: ceFAZolin 1GM VIAL (J0690 PER 500MG) As Ordered ONE (16:00)
[2021-12-06] MEDS ORDERED: ceFAZolin 2 GM/D5W 50 ML IV BAG (J0690 PER 500MG) As Ordered ONE (17:13)
[2021-12-06] MEDS ORDERED: TRANEXAMIC ACID 100 MG/ML 10ML VIAL As Ordered ONE (17:13)
[2021-12-06] MEDS ORDERED: fentaNYL 100 MCG/2 ML INJECTION As Ordered ONE ×2 (17:54→19:25)
[2021-12-06] MEDS ORDERED: propofoL 200 MG/20 ML VIAL As Ordered ONE (17:54)
[2021-12-06] MEDS ORDERED: LIDOCAINE 2% 100MG/5ML SDV (FOR ANES.) As Ordered ONE (17:54)
[2021-12-06] MEDS ORDERED: METOCLOPRAMIDE INJ 10MG/2ML VIAL (J2765 PER 1) As Ordered ONE (17:54)
[2021-12-06] MEDS ORDERED: dexameTHASONE 4 MG/ML 1ML VIAL (J1100 PER 1MG) As Ordered ONE (17:54)
[2021-12-06] MEDS ORDERED: ETOMIDATE INJ 20MG/10ML VIAL As Ordered ONE (17:54)
[2021-12-06] MEDS ORDERED: ONDANSETRON 4MG/2ML VIAL As Ordered ONE (17:54)
[2021-12-06] MEDS ORDERED: DESFLURANE 240 ML INHALANT As Ordered ONE (17:54)
[2021-12-06] MEDS ORDERED: SEVOFLURANE INHAL SOLN 250 ML BTL As Ordered ONE (17:54)
[2021-12-06] MEDS ORDERED: PHENYLephrine 500MCG 5ML (100MCG/ML) SYRINGE As Ordered ONE (17:56)
[2021-12-06] MEDS ORDERED: LACRILUBE (AKWA TEARS) OPHTH OINT 3.5 GM As Ordered ONE (17:56)
[2021-12-06] MEDS ORDERED: ACETAMINOPHEN 1000MG 100ML IV BTL (OFIRMEV) (J0131 PER 10MG) As Ordered ONE (17:58)
[2021-12-06] MEDS ORDERED: ePHEDrine SULFATE 25 MG/5 ML(5MG/ML) SYRINGE As Ordered ONE ×2 (18:00→18:17)
[2021-12-06] MEDS: fentaNYL 100 MCG/2 ML INJECTION IV PRN ×6 (19:25→21:29)
[2021-12-06] MEDS ORDERED: ONDANSETRON 4MG/2ML VIAL IV PRN (20:10)
[2021-12-06] MEDS ORDERED: METOCLOPRAMIDE INJ 10MG/2ML VIAL (J2765 PER 1) IV PRN (20:10)
[2021-12-06] MEDS ORDERED: LR 1,000 ML IV SCH (20:10)
[2021-12-06] MEDS: LATANOPROST 0.005% OPHTH SOLN 2.5 ML OU SCH (21:10)
[2021-12-06] MEDS: RHOPRESSA 0.02% OS SCH (21:11)
[2021-12-06] MEDS: MAGNESIUM OXIDE 400MG TAB (MAG-OX) PO SCH (21:12)
[2021-12-06] MEDS ORDERED: RAMELTEON 8 MG TAB (ROZEREM) PO PRN (22:25)
[2021-12-07] VITALS (9 sets, daily range): BP systolic 138–180; BP diastolic 71–108; O2SAT 97–99
[2021-12-07] MEDS ORDERED: atenoloL 25 MG TAB PO ONE
[2021-12-07] MEDS: HYDROMORPHONE HCL 0.5 MG/ 0.5 ML SYRINGE (J1170 PER 1) IV PRN ×2 (00:24→05:03)
[2021-12-07] MEDS: D5W/0.9% SODIUM CHLORIDE 1,000 ML IV SCH ×3 (03:23→21:56)
[2021-12-07 06:16] LABS: BASO % 0.2 % (0.0-1.0); HEMATOCRIT 30.1 % (36.0-47.0); HEMOGLOBIN 9.8 g/dl (12.0-15.5); LYMPH # 0.4 10^3/uL (1.5-5.0); LYMPH % 2.9 % (24.0-44.0); MEAN CORPUSCULAR HEMOGLOBIN 33.4 pg (27.0-33.0); MEAN CORPUSCULAR HGB CONC 32.6 g/dl (32.0-36.5); MEAN CORPUSCULAR VOLUME 102.7 fl (80.0-96.0); MONO # 0.8 10^3/uL (0.0-0.8); MONO % 6.8 % (2.0-8.0); NEUTROPHILS # 10.8 10^3/uL (1.5-8.5); NEUTROPHILS % 89.4 % (36.0-66.0); PLATELET COUNT, AUTOMATED 215 10^3/uL (150-450); RED BLOOD COUNT 2.93 10^6/uL (4.00-5.40); WHITE BLOOD COUNT 12.1 10^3/uL (4.0-10.0)
[2021-12-07 06:35] LABS: BLOOD UREA NITROGEN 24 MG/DL (7-18); CALCIUM LEVEL 8.5 MG/DL (8.8-10.2); CARBON DIOXIDE LEVEL 29 MEQ/L (21-32); CHLORIDE LEVEL 107 MEQ/L (98-107); CREATININE FOR GFR 0.83 MG/DL (0.55-1.30); GLOMERULAR FILTRATION RATE > 60.0 (>32); GLUCOSE, FASTING 168 MG/DL (70-100); MAGNESIUM LEVEL 2.3 MG/DL (1.8-2.4); POTASSIUM SERUM 4.4 MEQ/L (3.5-5.1); SODIUM LEVEL 142 MEQ/L (136-145)
[2021-12-07] MEDS ORDERED: PERCOCET 5MG/325MG TAB PO PRN (07:45)
[2021-12-07] MEDS ORDERED: ACETAMINOPHEN TAB 650MG DOSE (2X325MG) PO PRN (07:45)
[2021-12-07] MEDS ORDERED: MIRALAX *UNIT DOSE* 17GM PACKET PO PRN (07:50)
[2021-12-07] MEDS: BISACODYL 10 MG SUPP PR SCH (09:00)
[2021-12-07] MEDS: PILOCARPINE 1% OPHTH SOLN 15 ML OS SCH ×3 (09:45→20:53)
[2021-12-07] MEDS: DORZOLAMIDE 2% OPHTH SOLN 10 ML BTL OU SCH ×3 (09:45→20:54)
[2021-12-07] MEDS: BRIMONIDINE 0.1% OPHTH SOLN 5 ML OU SCH ×3 (09:45→20:53)
[2021-12-07] MEDS: DIGOXIN 0.125 MG TAB PO SCH (09:46)
[2021-12-07] MEDS: SENOKOT S TAB PO SCH ×2 (09:46→20:53)
[2021-12-07] MEDS: atenoloL 50 MG TAB PO SCH (09:46)
[2021-12-07] MEDS: NORCO, ANEXSIA 5/325MG TABLET (HYDROcodone/ACETAMINOPHEN) PO PRN (13:44)
[2021-12-07] MEDS: MIRALAX *UNIT DOSE* 17GM PACKET PO SCH (13:49)
[2021-12-07] MEDS ORDERED: NS 500 ML IV ONE (18:45)
[2021-12-07] MEDS: RHOPRESSA 0.02% OS SCH (20:53)
[2021-12-07] MEDS: MAGNESIUM OXIDE 400MG TAB (MAG-OX) PO SCH (20:53)
[2021-12-07] MEDS: LATANOPROST 0.005% OPHTH SOLN 2.5 ML OU SCH (20:54)
[2021-12-08 00:13] VITALS: BP 160/79
[2021-12-08] MEDS: NORCO, ANEXSIA 5/325MG TABLET (HYDROcodone/ACETAMINOPHEN) PO PRN ×3 (00:22→23:44)
[2021-12-08] MEDS ORDERED: MORPHINE 2 MG/ML 1ML VIAL (J2270) IV ONE (01:00)
[2021-12-08 04:26] VITALS: BP 162/88
[2021-12-08 06:59] LABS: BASO % 0.2 % (0.0-1.0); EOS % 0.2 % (0.0-3.0); HEMATOCRIT 27.6 % (36.0-47.0); HEMOGLOBIN 8.7 g/dl (12.0-15.5); LYMPH # 0.6 10^3/uL (1.5-5.0); LYMPH % 5.3 % (24.0-44.0); MEAN CORPUSCULAR HEMOGLOBIN 33.2 pg (27.0-33.0); MEAN CORPUSCULAR HGB CONC 31.5 g/dl (32.0-36.5); MEAN CORPUSCULAR VOLUME 105.3 fl (80.0-96.0); MONO # 1.2 10^3/uL (0.0-0.8); MONO % 9.9 % (2.0-8.0); NEUTROPHILS # 9.9 10^3/uL (1.5-8.5); NEUTROPHILS % 83.5 % (36.0-66.0); PLATELET COUNT, AUTOMATED 207 10^3/uL (150-450); RED BLOOD COUNT 2.62 10^6/uL (4.00-5.40); WHITE BLOOD COUNT 11.9 10^3/uL (4.0-10.0)
[2021-12-08 07:32] LABS: BLOOD UREA NITROGEN 23 MG/DL (7-18); CALCIUM LEVEL 8.2 MG/DL (8.8-10.2); CARBON DIOXIDE LEVEL 27 MEQ/L (21-32); CHLORIDE LEVEL 114 MEQ/L (98-107); CREATININE FOR GFR 0.78 MG/DL (0.55-1.30); GLOMERULAR FILTRATION RATE > 60.0 (>32); GLUCOSE, FASTING 158 MG/DL (70-100); POTASSIUM SERUM 3.5 MEQ/L (3.5-5.1); SODIUM LEVEL 145 MEQ/L (136-145)
[2021-12-08] MEDS: D5W/0.9% SODIUM CHLORIDE 1,000 ML IV SCH ×2 (07:36→19:08)
[2021-12-08] MEDS: DORZOLAMIDE 2% OPHTH SOLN 10 ML BTL OU SCH ×3 (09:00→20:57)
[2021-12-08] MEDS: BRIMONIDINE 0.1% OPHTH SOLN 5 ML OU SCH ×3 (09:00→20:57)
[2021-12-08] MEDS: MIRALAX *UNIT DOSE* 17GM PACKET PO SCH (09:00)
[2021-12-08] MEDS: BISACODYL 10 MG SUPP PR SCH (09:00)
[2021-12-08] MEDS: SENOKOT S TAB PO SCH ×2 (09:00→20:57)
[2021-12-08] MEDS: PILOCARPINE 1% OPHTH SOLN 15 ML OS SCH ×3 (09:00→20:57)
[2021-12-08 10:53] VITALS: BP 169/80
[2021-12-08] MEDS: atenoloL 50 MG TAB PO SCH (10:53)
[2021-12-08] MEDS: DIGOXIN 0.125 MG TAB PO SCH (10:53)
[2021-12-08 15:34] VITALS: BP 163/74
[2021-12-08 20:00] VITALS: BP 177/82
[2021-12-08] MEDS: LATANOPROST 0.005% OPHTH SOLN 2.5 ML OU SCH (20:57)
[2021-12-08] MEDS: MAGNESIUM OXIDE 400MG TAB (MAG-OX) PO SCH (20:58)
[2021-12-08] MEDS: RHOPRESSA 0.02% OS SCH (20:58)
[2021-12-08] MEDS: APIXABAN 2.5 MG TAB (ELIQUIS) PO SCH (20:58)
[2021-12-08 22:28] LABS: HEMATOCRIT 28.7 % (36.0-47.0); HEMOGLOBIN 8.9 g/dl (12.0-15.5); MEAN CORPUSCULAR VOLUME 106.3 fl (80.0-96.0); PLATELET COUNT, AUTOMATED 211 10^3/uL (150-450)
[2021-12-09 04:00] VITALS: BP 167/77
[2021-12-09 06:48] LABS: BASO % 0.4 % (0.0-1.0); EOS # 0.4 10^3/uL (0.0-0.5); EOS % 3.7 % (0.0-3.0); HEMATOCRIT 28.8 % (36.0-47.0); LYMPH # 1.4 10^3/uL (1.5-5.0); LYMPH % 13.9 % (24.0-44.0); MEAN CORPUSCULAR HEMOGLOBIN 32.7 pg (27.0-33.0); MEAN CORPUSCULAR HGB CONC 31.3 g/dl (32.0-36.5); MEAN CORPUSCULAR VOLUME 104.7 fl (80.0-96.0); NEUTROPHILS # 7.2 10^3/uL (1.5-8.5); NEUTROPHILS % 71.2 % (36.0-66.0); PLATELET COUNT, AUTOMATED 220 10^3/uL (150-450); RED BLOOD COUNT 2.75 10^6/uL (4.00-5.40); WHITE BLOOD COUNT 10.2 10^3/uL (4.0-10.0)
[2021-12-09 07:11] LABS: BLOOD UREA NITROGEN 14 MG/DL (7-18); CALCIUM LEVEL 7.9 MG/DL (8.8-10.2); CARBON DIOXIDE LEVEL 29 MEQ/L (21-32); CHLORIDE LEVEL 112 MEQ/L (98-107); GLOMERULAR FILTRATION RATE > 60.0 (>32); GLUCOSE, FASTING 103 MG/DL (70-100); SODIUM LEVEL 145 MEQ/L (136-145)
[2021-12-09] MEDS ORDERED: POTASSIUM CHLORIDE 10MEQ SR TABLET PO ONE (07:35)
[2021-12-09 07:36] VITALS: BP 173/91
[2021-12-09] MEDS ORDERED: HYDR-4571 PO (07:42)
[2021-12-09] MEDS ORDERED: TRAM50TA2 PO (07:42)
[2021-12-09] MEDS: BISACODYL 10 MG SUPP PR SCH (09:00)
[2021-12-09] MEDS: MIRALAX *UNIT DOSE* 17GM PACKET PO SCH (09:00)
[2021-12-09] MEDS: SENOKOT S TAB PO SCH (09:00)
[2021-12-09] MEDS: APIXABAN 2.5 MG TAB (ELIQUIS) PO SCH (09:59)
[2021-12-09] MEDS: DIGOXIN 0.125 MG TAB PO SCH (09:59)
[2021-12-09] MEDS: NORCO, ANEXSIA 5/325MG TABLET (HYDROcodone/ACETAMINOPHEN) PO PRN (09:59)
[2021-12-09] MEDS: atenoloL 50 MG TAB PO SCH (10:00)
[2021-12-09] MEDS: LATANOPROST 0.005% OPHTH SOLN 2.5 ML OU SCH (10:02)
[2021-12-09] MEDS: BRIMONIDINE 0.1% OPHTH SOLN 5 ML OU SCH (10:02)
[2021-12-09] MEDS: PILOCARPINE 1% OPHTH SOLN 15 ML OS SCH (10:03)
[2021-12-09] MEDS: DORZOLAMIDE 2% OPHTH SOLN 10 ML BTL OU SCH (10:03)
== END 2021-12-09 10:32 | DRG 480 ==
LOC: M ED 01:04 → M ED INP 05:18 → ENRESERV 06:35 → M PCU 09:52
PROVIDERS: ADMIT Internal Medicine; ATTEND Internal Medicine
PROC: 0QS706Z Reposition Left Upper Femur with Intramedullary Internal Fixation Device, Open Approach (ICD-10-PCS; principal; 2021-12-06 20:00)
PROC: BQ14ZZZ Fluoroscopy of Left Femur (ICD-10-PCS; principal; 2021-12-06 20:00)
DX: S72.145A Nondisplaced intertrochanteric fracture of left femur, initial encounter for closed fracture (principal); I50.33 Acute on chronic diastolic (congestive) heart failure; G92.8 Other toxic encephalopathy; I13.0 Hypertensive heart and chronic kidney disease with heart failure and stage 1 through stage 4 chronic kidney disease, or unspecified chronic kidney disease; S42.292A Other displaced fracture of upper end of left humerus, initial encounter for closed fracture; I48.20 Chronic atrial fibrillation, unspecified; D62 Acute posthemorrhagic anemia; E46 Unspecified protein-calorie malnutrition; I73.9 Peripheral vascular disease, unspecified; E78.5 Hyperlipidemia, unspecified; Z79.01 Long term (current) use of anticoagulants; Z85.038 Personal history of other malignant neoplasm of large intestine; N18.9 Chronic kidney disease, unspecified; Z66 Do not resuscitate; Z90.79 Acquired absence of other genital organ(s); W01.0XXA Fall on same level from slipping, tripping and stumbling without subsequent striking against object, initial encounter; Y92.009 Unspecified place in unspecified non-institutional (private) residence as the place of occurrence of the external cause; K21.9 Gastro-esophageal reflux disease without esophagitis; H40.9 Unspecified glaucoma; Z79.899 Other long term (current) drug therapy; Z88.8 Allergy status to other drugs, medicaments and biological substances; Z20.822 Contact with and (suspected) exposure to COVID-19; I44.7 Left bundle-branch block, unspecified; I08.3 Combined rheumatic disorders of mitral, aortic and tricuspid valves; I27.29 Other secondary pulmonary hypertension; F03.90 Unspecified dementia, unspecified severity, without behavioral disturbance, psychotic disturbance, mood disturbance, and anxiety

== ENCOUNTER → 2021-12-07 | Outpatient (REF) | payer MEDICARE, MEDICAID ==
[~2021-12-07] MED LIST changes: +ASPE4PAD TOP; +BRIM1OPD OU; +FURO20TA2 PO; +HYDR-4571 PO; +TRUS1SOL OU
== END ==
PROVIDERS: ATTEND Nurse Practitioner Adult Health
DX: I13.0 Hypertensive heart and chronic kidney disease with heart failure and stage 1 through stage 4 chronic kidney disease, or unspecified chronic kidney disease (principal); Z53.9 Procedure and treatment not carried out, unspecified reason

== ENCOUNTER → 2021-12-15 | Outpatient (CLI) | payer MEDICARE, MEDICAID | LOC: M SOG 09:54 | PROVIDERS: ATTEND Student in an Organized Health Care Education/Training Program | DX: S72.144A Nondisplaced intertrochanteric fracture of right femur, initial encounter for closed fracture (principal); S42.221A 2-part displaced fracture of surgical neck of right humerus, initial encounter for closed fracture; X58.XXXA Exposure to other specified factors, initial encounter; Y92.89 Other specified places as the place of occurrence of the external cause; Y93.9 Activity, unspecified ==

== ENCOUNTER → 2022-01-02 | Outpatient (CLI) | payer MEDICARE, MEDICAID | LOC: M SOG 09:42 | PROVIDERS: ATTEND Orthopaedic Surgery | DX: S42.221A 2-part displaced fracture of surgical neck of right humerus, initial encounter for closed fracture (principal); X58.XXXA Exposure to other specified factors, initial encounter; Y92.9 Unspecified place or not applicable ==

== ENCOUNTER → 2022-01-03 | Outpatient (REF) | payer MEDICARE, MEDICAID | PROVIDERS: ATTEND Physician Assistant | DX: N39.0 Urinary tract infection, site not specified (principal) ==

== ENCOUNTER → 2022-01-03 | Outpatient (REF) | payer MEDICARE, MEDICAID ==
[2022-01-03 13:16] LABS: BASO # 0.1 10^3/uL (0.0-0.2); BASO % 0.9 % (0.0-1.0); EOS # 0.5 10^3/uL (0.0-0.5); EOS % 6.5 % (0.0-3.0); HEMATOCRIT 35.4 % (36.0-47.0); HEMOGLOBIN 11.3 g/dl (12.0-15.5); LYMPH # 1.6 10^3/uL (1.5-5.0); LYMPH % 21.6 % (24.0-44.0); MEAN CORPUSCULAR HEMOGLOBIN 33.2 pg (27.0-33.0); MEAN CORPUSCULAR HGB CONC 31.9 g/dl (32.0-36.5); MEAN CORPUSCULAR VOLUME 104.1 fl (80.0-96.0); MONO # 0.8 10^3/uL (0.0-0.8); MONO % 10.9 % (2.0-8.0); NEUTROPHILS # 4.5 10^3/uL (1.5-8.5); NEUTROPHILS % 59.7 % (36.0-66.0); PLATELET COUNT, AUTOMATED 295 10^3/uL (150-450); WHITE BLOOD COUNT 7.5 10^3/uL (4.0-10.0)
[2022-01-03 13:54] LABS: BLOOD UREA NITROGEN 16 MG/DL (7-18); CALCIUM LEVEL 9.2 MG/DL (8.8-10.2); CARBON DIOXIDE LEVEL 25 MEQ/L (21-32); CHLORIDE LEVEL 110 MEQ/L (98-107); CREATININE FOR GFR 0.82 MG/DL (0.55-1.30); GLOMERULAR FILTRATION RATE > 60.0 (>32); GLUCOSE, FASTING 95 MG/DL (70-100); POTASSIUM SERUM 4.7 MEQ/L (3.5-5.1); SODIUM LEVEL 141 MEQ/L (136-145)
== END ==
PROVIDERS: ATTEND Internal Medicine
DX: F22 Delusional disorders (principal); N39.0 Urinary tract infection, site not specified

== ENCOUNTER → 2022-01-11 | Outpatient (CLI) | payer MEDICARE, MEDICAID | LOC: M PLAIMG 09:15 | PROVIDERS: ATTEND Physician Assistant | DX: G31.9 Degenerative disease of nervous system, unspecified (principal); Z79.899 Other long term (current) drug therapy ==

== ENCOUNTER → 2022-01-11 | Outpatient (REF) | payer MEDICARE, MEDICAID ==
[2022-01-10 13:57] LABS: BASO # 0.1 10^3/uL (0.0-0.2); BASO % 1.9 % (0.0-1.0); EOS # 0.3 10^3/uL (0.0-0.5); EOS % 6.8 % (0.0-3.0); LYMPH # 0.9 10^3/uL (1.5-5.0); LYMPH % 18.4 % (24.0-44.0); MEAN CORPUSCULAR HGB CONC 31.4 g/dl (32.0-36.5); MEAN CORPUSCULAR VOLUME 105.1 fl (80.0-96.0); MONO # 0.6 10^3/uL (0.0-0.8); MONO % 12.8 % (2.0-8.0); NEUTROPHILS # 2.9 10^3/uL (1.5-8.5); NEUTROPHILS % 59.7 % (36.0-66.0); PLATELET COUNT, AUTOMATED 253 10^3/uL (150-450); RED BLOOD COUNT 3.33 10^6/uL (4.00-5.40); WHITE BLOOD COUNT 4.8 10^3/uL (4.0-10.0)
[2022-01-10 14:33] LABS: ALBUMIN 2.9 GM/DL (3.2-5.2); ALT/SGPT 16 U/L (12-78); BILIRUBIN,TOTAL 0.5 MG/DL (0.2-1.0); BLOOD UREA NITROGEN 18 MG/DL (7-18); CALCIUM LEVEL 8.5 MG/DL (8.8-10.2); CARBON DIOXIDE LEVEL 25 MEQ/L (21-32); CHLORIDE LEVEL 110 MEQ/L (98-107); CREATININE FOR GFR 0.98 MG/DL (0.55-1.30); GLOMERULAR FILTRATION RATE 57.2 (>32); GLUCOSE, FASTING 91 MG/DL (70-100); POTASSIUM SERUM 4.3 MEQ/L (3.5-5.1); SODIUM LEVEL 142 MEQ/L (136-145)
[2022-01-10 14:34] LABS: MAGNESIUM LEVEL 2.1 MG/DL (1.8-2.4)
== END ==
PROVIDERS: ATTEND Physician Assistant
DX: R41.0 Disorientation, unspecified (principal)

== ENCOUNTER → 2022-02-08 | Outpatient (REF) | payer MEDICARE, MEDICAID | PROVIDERS: ATTEND Internal Medicine | DX: I48.91 Unspecified atrial fibrillation (principal) ==

== ENCOUNTER → 2022-02-13 | Outpatient (REF) | payer MEDICARE, MEDICAID ==
[2022-02-13 09:51] LABS: HEMATOCRIT 36.1 % (36.0-47.0); HEMOGLOBIN 11.2 g/dl (12.0-15.5); MEAN CORPUSCULAR VOLUME 103.1 fl (80.0-96.0); PLATELET COUNT, AUTOMATED 267 10^3/uL (150-450); WHITE BLOOD COUNT 5.4 10^3/uL (4.0-10.0)
== END ==
PROVIDERS: ATTEND Physician Assistant
DX: R09.89 Other specified symptoms and signs involving the circulatory and respiratory systems (principal)

== ENCOUNTER → 2022-02-16 | Outpatient (CLI) | payer MEDICARE, MEDICAID | LOC: M SOG 09:47 | PROVIDERS: ATTEND Orthopaedic Surgery | DX: Z47.89 Encounter for other orthopedic aftercare (principal); S42.202A Unspecified fracture of upper end of left humerus, initial encounter for closed fracture; X58.XXXA Exposure to other specified factors, initial encounter; Y92.9 Unspecified place or not applicable ==

== ENCOUNTER → 2022-02-20 | Outpatient (REF) | payer MEDICARE, MEDICAID ==
[2022-02-20 12:21] LABS: HEMATOCRIT 33.2 % (36.0-47.0); HEMOGLOBIN 10.6 g/dl (12.0-15.5); MEAN CORPUSCULAR HEMOGLOBIN 33.1 pg (27.0-33.0); MEAN CORPUSCULAR HGB CONC 31.9 g/dl (32.0-36.5); MEAN CORPUSCULAR VOLUME 103.8 fl (80.0-96.0); PLATELET COUNT, AUTOMATED 245 10^3/uL (150-450); WHITE BLOOD COUNT 4.7 10^3/uL (4.0-10.0)
[2022-02-20 12:57] LABS: CALCIUM LEVEL 8.4 MG/DL (8.8-10.2); CREATININE FOR GFR 0.99 MG/DL (0.55-1.30); GLOMERULAR FILTRATION RATE 56.5 (>32); POTASSIUM SERUM 4.5 MEQ/L (3.5-5.1)
== END ==
PROVIDERS: ATTEND Physician Assistant
DX: I50.9 Heart failure, unspecified (principal)

== ENCOUNTER → 2022-02-21 | Outpatient (REF) | payer MEDICARE, MEDICAID ==
[2022-02-21 13:35] LABS: HEMATOCRIT 38.2 % (36.0-47.0); HEMOGLOBIN 11.9 g/dl (12.0-15.5); MEAN CORPUSCULAR HEMOGLOBIN 32.1 pg (27.0-33.0); MEAN CORPUSCULAR HGB CONC 31.2 g/dl (32.0-36.5); PLATELET COUNT, AUTOMATED 281 10^3/uL (150-450); RED BLOOD COUNT 3.71 10^6/uL (4.00-5.40); WHITE BLOOD COUNT 4.9 10^3/uL (4.0-10.0)
[2022-02-21 14:09] LABS: CALCIUM LEVEL 8.5 MG/DL (8.8-10.2); CREATININE FOR GFR 1.13 MG/DL (0.55-1.30); GLOMERULAR FILTRATION RATE 48.5 (>32); POTASSIUM SERUM 4.1 MEQ/L (3.5-5.1)
== END ==
PROVIDERS: ATTEND Physician Assistant
DX: I50.9 Heart failure, unspecified (principal)

== ENCOUNTER → 2022-03-28 | Outpatient (REF) | payer MEDICARE, MEDICAID ==
[2022-03-28 17:43] LABS: HEMATOCRIT 37.3 % (36.0-47.0); HEMOGLOBIN 11.7 g/dl (12.0-15.5); MEAN CORPUSCULAR HEMOGLOBIN 32.7 pg (27.0-33.0); MEAN CORPUSCULAR HGB CONC 31.4 g/dl (32.0-36.5); MEAN CORPUSCULAR VOLUME 104.2 fl (80.0-96.0); PLATELET COUNT, AUTOMATED 245 10^3/uL (150-450); RED BLOOD COUNT 3.58 10^6/uL (4.00-5.40); WHITE BLOOD COUNT 8.2 10^3/uL (4.0-10.0)
[2022-03-28 20:24] LABS: CALCIUM LEVEL 8.9 MG/DL (8.8-10.2); CREATININE FOR GFR 1.17 MG/DL (0.55-1.30); GLOMERULAR FILTRATION RATE 46.6 (>32); POTASSIUM SERUM 4.3 MEQ/L (3.5-5.1)
== END ==
PROVIDERS: ATTEND Physician Assistant
DX: R53.1 Weakness (principal)

== ENCOUNTER → 2022-05-10 | Outpatient (CLI) | payer MEDICARE, MEDICAID ==
[~2022-05-10] MED LIST changes: +POTA-150 PO; -POTA10TA17 PO
== END ==
LOC: M SOG 08:10
PROVIDERS: ATTEND Orthopaedic Surgery
DX: Z47.89 Encounter for other orthopedic aftercare (principal); S42.202D Unspecified fracture of upper end of left humerus, subsequent encounter for fracture with routine healing

== ENCOUNTER → 2022-06-01 | Outpatient (CLI) | payer MEDICARE, MEDICAID | LOC: M SOG 07:55 | PROVIDERS: ATTEND Orthopaedic Surgery Hand Surgery | DX: M25.741 Osteophyte, right hand (principal) ==

== ENCOUNTER → 2022-06-14 | Outpatient (CLI) | payer MEDICARE, MEDICAID | PROVIDERS: ATTEND Internal Medicine | DX: R05.9 Cough, unspecified (principal) ==

== ENCOUNTER → 2022-06-14 | Outpatient (REF) | payer MEDICARE, MEDICAID ==
[2022-06-14 14:10] LABS: HEMATOCRIT 35.7 % (36.0-47.0); HEMOGLOBIN 11.5 g/dl (12.0-15.5); MEAN CORPUSCULAR HEMOGLOBIN 32.9 pg (27.0-33.0); MEAN CORPUSCULAR HGB CONC 32.2 g/dl (32.0-36.5); PLATELET COUNT, AUTOMATED 193 10^3/uL (150-450); WHITE BLOOD COUNT 9.4 10^3/uL (4.0-10.0)
[2022-06-14 14:37] LABS: BLOOD UREA NITROGEN 20 MG/DL (7-18); CALCIUM LEVEL 8.8 MG/DL (8.8-10.2); CARBON DIOXIDE LEVEL 28 MEQ/L (21-32); CHLORIDE LEVEL 106 MEQ/L (98-107); CREATININE FOR GFR 0.89 MG/DL (0.55-1.30); GLOMERULAR FILTRATION RATE > 60.0 (>32); GLUCOSE, FASTING 92 MG/DL (70-100); POTASSIUM SERUM 4.2 MEQ/L (3.5-5.1); SODIUM LEVEL 141 MEQ/L (136-145)
== END ==
PROVIDERS: ATTEND Physician Assistant
DX: R05.9 Cough, unspecified (principal); Z79.899 Other long term (current) drug therapy

== ENCOUNTER → 2022-06-21 | Outpatient (REF) | payer MEDICARE, MEDICAID ==
[2022-06-21 12:57] LABS: CALCIUM LEVEL 9.4 MG/DL (8.8-10.2); CREATININE FOR GFR 1.17 MG/DL (0.55-1.30); GLOMERULAR FILTRATION RATE 46.6 (>32); MAGNESIUM LEVEL 2.4 MG/DL (1.8-2.4); POTASSIUM SERUM 4.3 MEQ/L (3.5-5.1)
== END ==
PROVIDERS: ATTEND Internal Medicine
DX: E87.6 Hypokalemia (principal)

== ENCOUNTER → 2022-06-23 | Outpatient (REF) | payer MEDICARE, MEDICAID ==
[2022-06-23 14:17] LABS: HEMATOCRIT 39.2 % (36.0-47.0); HEMOGLOBIN 12.1 g/dl (12.0-15.5); MEAN CORPUSCULAR HEMOGLOBIN 32.4 pg (27.0-33.0); MEAN CORPUSCULAR HGB CONC 30.9 g/dl (32.0-36.5); MEAN CORPUSCULAR VOLUME 105.1 fl (80.0-96.0); PLATELET COUNT, AUTOMATED 292 10^3/uL (150-450); RED BLOOD COUNT 3.73 10^6/uL (4.00-5.40); WHITE BLOOD COUNT 6.5 10^3/uL (4.0-10.0)
[2022-06-23 15:16] LABS: ALBUMIN 3.4 GM/DL (3.2-5.2); BILIRUBIN,DIRECT 0.1 MG/DL (0.0-0.2); BILIRUBIN,TOTAL 0.3 MG/DL (0.2-1.0); CALCIUM LEVEL 9.5 MG/DL (8.8-10.2); CREATININE FOR GFR 1.25 MG/DL (0.55-1.30); GLOMERULAR FILTRATION RATE 43.2 (>32); POTASSIUM SERUM 4.5 MEQ/L (3.5-5.1); TOTAL PROTEIN 6.9 GM/DL (6.4-8.2)
== END ==
PROVIDERS: ATTEND Physician Assistant
DX: R53.83 Other fatigue (principal)

== ENCOUNTER → 2022-06-24 | Outpatient (REF) | payer MEDICARE, MEDICAID ==
[2022-06-24 09:10] LABS: HEMATOCRIT 36.7 % (36.0-47.0); HEMOGLOBIN 11.8 g/dl (12.0-15.5); MEAN CORPUSCULAR HEMOGLOBIN 33.1 pg (27.0-33.0); MEAN CORPUSCULAR HGB CONC 32.2 g/dl (32.0-36.5); MEAN CORPUSCULAR VOLUME 102.8 fl (80.0-96.0); PLATELET COUNT, AUTOMATED 265 10^3/uL (150-450); RED BLOOD COUNT 3.57 10^6/uL (4.00-5.40); WHITE BLOOD COUNT 6.6 10^3/uL (4.0-10.0)
[2022-06-24 09:42] LABS: CREATININE FOR GFR 1.17 MG/DL (0.55-1.30); GLOMERULAR FILTRATION RATE 46.6 (>32); POTASSIUM SERUM 3.8 MEQ/L (3.5-5.1)
== END ==
PROVIDERS: ATTEND Internal Medicine
DX: E86.0 Dehydration (principal)

== ENCOUNTER → 2022-06-25 | Outpatient (REF) | payer MEDICARE, MEDICAID ==
[2022-06-25 12:13] LABS: HEMATOCRIT 34.5 % (36.0-47.0); HEMOGLOBIN 10.9 g/dl (12.0-15.5); MEAN CORPUSCULAR HEMOGLOBIN 32.9 pg (27.0-33.0); MEAN CORPUSCULAR HGB CONC 31.6 g/dl (32.0-36.5); MEAN CORPUSCULAR VOLUME 104.2 fl (80.0-96.0); PLATELET COUNT, AUTOMATED 241 10^3/uL (150-450); RED BLOOD COUNT 3.31 10^6/uL (4.00-5.40); WHITE BLOOD COUNT 15.4 10^3/uL (4.0-10.0)
[2022-06-25 12:52] LABS: CALCIUM LEVEL 8.4 MG/DL (8.8-10.2); CREATININE FOR GFR 1.18 MG/DL (0.55-1.30); GLOMERULAR FILTRATION RATE 46.1 (>32); POTASSIUM SERUM 4.2 MEQ/L (3.5-5.1)
== END ==
PROVIDERS: ATTEND Internal Medicine
DX: E86.0 Dehydration (principal)

== ENCOUNTER → 2022-06-28 | Outpatient (REF) | payer MEDICARE, MEDICAID ==
[2022-06-28 11:58] LABS: HEMATOCRIT 37.3 % (36.0-47.0); HEMOGLOBIN 11.5 g/dl (12.0-15.5); MEAN CORPUSCULAR HGB CONC 30.8 g/dl (32.0-36.5); MEAN CORPUSCULAR VOLUME 107.2 fl (80.0-96.0); PLATELET COUNT, AUTOMATED 296 10^3/uL (150-450); RED BLOOD COUNT 3.48 10^6/uL (4.00-5.40); WHITE BLOOD COUNT 9.8 10^3/uL (4.0-10.0)
[2022-06-28 12:26] LABS: CALCIUM LEVEL 9.2 MG/DL (8.8-10.2); CREATININE FOR GFR 1.08 MG/DL (0.55-1.30); GLOMERULAR FILTRATION RATE 51.1 (>32); POTASSIUM SERUM 4.8 MEQ/L (3.5-5.1)
== END ==
PROVIDERS: ATTEND Physician Assistant
DX: R19.7 Diarrhea, unspecified (principal)

== ENCOUNTER → 2022-09-07 | Outpatient (REF) | payer MEDICARE, MEDICAID ==
[2022-09-07 16:18] LABS: HEMATOCRIT 35.9 % (36.0-47.0); HEMOGLOBIN 11.4 g/dl (12.0-15.5); MEAN CORPUSCULAR HEMOGLOBIN 32.8 pg (27.0-33.0); MEAN CORPUSCULAR HGB CONC 31.8 g/dl (32.0-36.5); MEAN CORPUSCULAR VOLUME 103.2 fl (80.0-96.0); PLATELET COUNT, AUTOMATED 244 10^3/uL (150-450); RED BLOOD COUNT 3.48 10^6/uL (4.00-5.40); WHITE BLOOD COUNT 9.2 10^3/uL (4.0-10.0)
[2022-09-07 16:41] LABS: BLOOD UREA NITROGEN 17 MG/DL (9-23); CALCIUM LEVEL 8.9 MG/DL (8.3-10.6); CARBON DIOXIDE LEVEL 20 MMOL/L (20-31); CHLORIDE LEVEL 107 MMOL/L (98-107); CREATININE FOR GFR 0.88 MG/DL (0.55-1.30); GLOMERULAR FILTRATION RATE > 60.0 (>32); GLUCOSE, FASTING 133 MG/DL (74-106); SODIUM LEVEL 140 MMOL/L (136-145)
== END ==
PROVIDERS: ATTEND Internal Medicine
DX: R05.9 Cough, unspecified (principal); Z79.899 Other long term (current) drug therapy

== ENCOUNTER → 2022-10-20 | Outpatient (REF) | payer MEDICARE, MEDICAID | PROVIDERS: ATTEND Physician Assistant | DX: I48.91 Unspecified atrial fibrillation (principal) ==

== ENCOUNTER → 2022-11-20 | Outpatient (REF) | payer MEDICARE, MEDICAID ==
[2022-11-20 11:11] LABS: BASO # 0.1 10^3/uL (0.0-0.2); BASO % 0.9 % (0.0-1.0); EOS # 0.1 10^3/uL (0.0-0.5); EOS % 2.1 % (0.0-3.0); HEMATOCRIT 38.1 % (36.0-47.0); LYMPH % 15.2 % (24.0-44.0); MEAN CORPUSCULAR HEMOGLOBIN 32.3 pg (27.0-33.0); MEAN CORPUSCULAR HGB CONC 31.5 g/dl (32.0-36.5); MEAN CORPUSCULAR VOLUME 102.7 fl (80.0-96.0); MONO # 0.5 10^3/uL (0.0-0.8); NEUTROPHILS # 4.8 10^3/uL (1.5-8.5); NEUTROPHILS % 74.2 % (36.0-66.0); PLATELET COUNT, AUTOMATED 214 10^3/uL (150-450); RED BLOOD COUNT 3.71 10^6/uL (4.00-5.40); WHITE BLOOD COUNT 6.5 10^3/uL (4.0-10.0)
[2022-11-20 11:31] LABS: BLOOD UREA NITROGEN 23 MG/DL (9-23); CALCIUM LEVEL 8.6 MG/DL (8.3-10.6); CARBON DIOXIDE LEVEL 27 MMOL/L (20-31); CHLORIDE LEVEL 104 MMOL/L (98-107); CREATININE FOR GFR 0.93 MG/DL (0.55-1.30); DIGOXIN LEVEL 0.4 NG/ML (0.8-2.0); GLOMERULAR FILTRATION RATE > 60.0 (>32); GLUCOSE, FASTING 141 MG/DL (74-106); POTASSIUM SERUM 4.5 MMOL/L (3.5-5.1); SODIUM LEVEL 140 MMOL/L (136-145)
[2022-11-20 11:34] LABS: THYROID STIMULATING HORMONE 1.961 uIU/ML (0.55-4.78)
[2022-11-20 16:15] LABS: APPEARANCE, URINE CLOUDY (CLEAR); BACTERIA, URINE AUTO 3+ (NEGATIVE); BILIRUBIN, URINE AUTO NEGATIVE (NEGATIVE); BLOOD, URINE BLOOD 1+ (NEGATIVE); COLOR, URINE AMBER (YELLOW); GLUCOSE, URINE (UA) AUTO NEGATIVE (NEGATIVE); KETONE, URINE AUTO NEGATIVE (NEGATIVE); LEUKOCYTE ESTERASE, URINE AUTO 3+ (NEGATIVE); MUCUS, URINE SMALL (NEGATIVE); NITRITE, URINE AUTO NEGATIVE (NEGATIVE); PROTEIN, URINE AUTO 2+ mg/dL (NEGATIVE); RBC, URINE AUTO 30 /HPF (0-3); SPECIFIC GRAVITY URINE AUTO 1.016 (1.002-1.035); SQUAMOUS EPITHELIAL CELL UR AU 1 /HPF (0-6); UROBILINOGEN, URINE AUTO 0.2 mg/dL (0.0-2.0); WBC, URINE AUTO TNTC /HPF (0-3)
== END ==
PROVIDERS: ATTEND Physician Assistant
DX: R41.0 Disorientation, unspecified (principal); Z79.899 Other long term (current) drug therapy

== ENCOUNTER → 2023-01-11 | Outpatient (REF) | payer MEDICARE, MEDICAID ==
[~2023-01-11] MED LIST changes: -ATRO1OPD OS; +ATRO2DRO4 OS; -COSO1SOL3 OU; +DORZ10DR10 OU
[2023-01-11 21:10] LABS: HEMATOCRIT 36.7 % (36.0-47.0); HEMOGLOBIN 11.7 g/dl (12.0-15.5); MEAN CORPUSCULAR HEMOGLOBIN 33.1 pg (27.0-33.0); MEAN CORPUSCULAR HGB CONC 31.9 g/dl (32.0-36.5); MEAN CORPUSCULAR VOLUME 103.7 fl (80.0-96.0); PLATELET COUNT, AUTOMATED 190 10^3/uL (150-450); RED BLOOD COUNT 3.54 10^6/uL (4.00-5.40); WHITE BLOOD COUNT 12.8 10^3/uL (4.0-10.0)
[2023-01-11 21:21] LABS: BLOOD UREA NITROGEN 35 MG/DL (9-23); CALCIUM LEVEL 8.8 MG/DL (8.3-10.6); CARBON DIOXIDE LEVEL 28 MMOL/L (20-31); CHLORIDE LEVEL 109 MMOL/L (98-107); CREATININE FOR GFR 0.84 MG/DL (0.55-1.30); GLOMERULAR FILTRATION RATE > 60.0 (>32); GLUCOSE, FASTING 102 MG/DL (74-106); POTASSIUM SERUM 4.1 MMOL/L (3.5-5.1); SODIUM LEVEL 145 MMOL/L (136-145)
[2023-01-11 21:35] LABS: APPEARANCE, URINE CLEAR (CLEAR); BACTERIA, URINE AUTO NEGATIVE (NEGATIVE); BILIRUBIN, URINE AUTO NEGATIVE (NEGATIVE); BLOOD, URINE BLOOD NEGATIVE (NEGATIVE); COLOR, URINE YELLOW (YELLOW); GLUCOSE, URINE (UA) AUTO NEGATIVE (NEGATIVE); KETONE, URINE AUTO 1+ mg/dL (NEGATIVE); LEUKOCYTE ESTERASE, URINE AUTO NEGATIVE (NEGATIVE); MUCUS, URINE SMALL (NEGATIVE); NITRITE, URINE AUTO NEGATIVE (NEGATIVE); PROTEIN, URINE AUTO 2+ mg/dL (NEGATIVE); RBC, URINE AUTO 4 /HPF (0-3); SPECIFIC GRAVITY URINE AUTO 1.026 (1.002-1.035); SQUAMOUS EPITHELIAL CELL UR AU 0 /HPF (0-6); UROBILINOGEN, URINE AUTO 0.2 mg/dL (0.0-2.0); WBC, URINE AUTO 1 /HPF (0-3)
== END ==
PROVIDERS: ATTEND Internal Medicine
DX: M54.9 Dorsalgia, unspecified (principal); R10.9 Unspecified abdominal pain

== ENCOUNTER → 2023-01-12 | Outpatient (REF) | payer MEDICARE, MEDICAID | PROVIDERS: ATTEND Internal Medicine | DX: R05.9 Cough, unspecified (principal) ==

== ENCOUNTER → 2023-01-12 | Outpatient (REF) | payer MEDICARE, MEDICAID | PROVIDERS: ATTEND Internal Medicine | DX: J84.89 Other specified interstitial pulmonary diseases (principal); I51.7 Cardiomegaly; I70.0 Atherosclerosis of aorta ==